=== PATIENT | male | born 1940 | race Caucasian/White ===

== ENCOUNTER 2019-05-16 19:32 | Emergency (ER) | payer OTHER, MEDICARE ==
--- OUTSIDE RECORDS SUMMARY | 2019-05-16 19:35 | XMS REPORT | Clinical Summary ---
:1940 Author Organization [facility] Address [address] [place] [address] Care Team Providers Name Role Phone Lalo Mireles MD Primary Care Provider Allergies No Known Allergies Medications Medication Sig Dispensed Refills Start Date End Date Status apixaban (ELIQUIS) 5 mg Take 5 mg by 0 Active Tab tablet mouth 2 (two) times daily. lansoprazole (PREVACID) Take 30 mg by 0 Active 30 MG capsule mouth daily. famotidine (PEPCID) 20 Take 20 mg by 0 Active MG tablet mouth as needed . Active Problems Not on file Social History Tobacco Use Types Packs/Day Years Used Date Former Smoker Smokeless Tobacco: Never Used Comments: QUIT SMOKING 1976 Alcohol Use Drinks/Week oz/Week Comments Yes OCCASIONALLY Sex Assigned at Date Recorded Not on file Job Start Date Occupation Industry Not on file Not on file Not on file Travel History Travel Start Travel End No recent travel history available. Last Filed Vital Signs Not on file Plan of Treatment Not on file Results Not on fileafter 05/15/2018 Insurance Payer Benefit Plan / Group Subscriber ID Type Phone Address MEDICARE MEDICARE A B xxxxxxxxxx Medicare MCR SUPPLEMENT/INDIVIDUAL AARP/[facility] xxxxxxxxxxx Medig[employer]
--- OUTSIDE RECORDS SUMMARY | 2019-05-16 19:35 | XMS REPORT ---
:1940 [facility] Address [address] [place] [address] Care Team Providers Name Role Phone Unavailable Unavailable Unavailable Payers Payer Name Policy Type Policy Number Effective Date Expiration Date Problems This patient has no known problems. Allergies, Adverse Reactions, Alerts Allergy Allergy Status Severity Reaction(s) Onset Inactive Treating Comments Name Type Date Date Clinician No Known DA Active U 2018-10 Drug -02 Allergies 00:00:0 0 No Known DA Active U 2014-09 Drug -16 Allergies 00:00:0 0 Medications This patient has no known medications.
[2019-05-16] MEDS ORDERED: ACETAMINOPHEN 325 MG TABLET ONE (20:18)
[2019-05-16] MEDS ORDERED: IBUPROFEN 400 MG TAB ONE (20:18)
[2019-05-16] MEDS ORDERED: HYDROCODONE/APAP 7.5/325 MG TAB ONE (20:49)
--- NOTE | 2019-05-16 21:07 | EDPHYS ---
Physician Documentation [facility] Name: Alpesh Alves Age: 78 yrs Sex: Male : 1940 Arrival Date: 05/16/2019 Time: 19:40 Bed 20 Private MD: Lalo Mireles B ED Physician James Wong HPI: 05/16 19:52 This 78 yrs old Male presents to ER via Ambulatory with complaints of Ankle cp Injury. 19:52 The patient presents with pain, that is acute, swelling, tenderness. The complaints cp affect the left ankle. Onset: The symptoms/episode began/occurred 3 day(s) ago. Context: resulted from a mis-step by the patient, [place], The patient can fully bear weight on the affected extremity. the patient is able to ambulate, with moderate difficulty. Associated signs and symptoms: Pertinent positives: left foot pain. 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 - Social history:: Smoking status: Patient/guardian denies using tobacco. - Ebola Screening: : No symptoms or risks identified at this time. ROS: 20:00 Constitutional: Negative for body aches, chills, fever, poor PO intake. cp 20:00 Cardiovascular: Negative for chest pain. cp 20:00 Respiratory: Negative for cough, wheezing. 20:00 MS/extremity: Positive for pain, swelling, tenderness, of the left lateral ankle, Negative for decreased range of motion, paresthesias. 20:00 Skin: Negative for rash. 20:00 All other systems are negative. Exam: 20:08 Constitutional: The patient appears in no acute distress, alert, awake, cp non-diaphoretic, non-toxic, well developed, well nourished. 20:08 Head/Face: Normocephalic, atraumatic. cp 20:08 Musculoskeletal/extremity: Extremities: grossly normal except: noted in the left lateral ankle: pain, swelling, tenderness, There is no evidence of decreased ROM, deformity, ROM: limited active range of motion due to pain, in the left ankle, Perfusion: the extremity is normally perfused throughout, Sensation intact. Achilles tendon intact. No pain palpated at proximal fibula. Noted tenderness at base of left fifth metatarsal. 20:08 Skin: cellulitis, is not appreciated, no rash present. Vital Signs: 19:53 BP 192 / 105; Pulse 98; Resp 18 S; Temp 98.9(O); Pulse Ox 96% on R/A; Weight 112.04 kg bb (R); Height 6 ft. 0 in. (182.88 cm) (R); Pain 10/10; 19:53 Body Mass Index 33.50 (112.04 kg, 182.88 cm) bb Procedures: 21:45 Splinting: Splint applied to left ankle using walking boot. applied by nurse. Examined cp by me, post splint application: neurovascular intact, Patient tolerated well. MDM: 19:40 Patient medically screened. wendy 20:00 Differential diagnosis: fracture, sprain, gout, dislocation. cp 21:00 Test interpretation: by ED physician or midlevel provider: xrays of left ankle negative cp for fracture and xrays of left foot negative for fracture. 21:03 Data reviewed: vital signs, nurses notes, radiologic studies, plain films. 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 Response to treatment: the patient's symptoms have markedly improved after treatment. 05/16 19:51 Order name: XRAY Foot LEFT 3 View 05/16 19:51 Order name: XRAY Ankle LEFT 3 view cp 05/16 20:45 Order name: Walking boot; Complete Time: 21:22 cp Administered Medications: 20:03 Drug: Tylenol 650 mg Route: PO; ao 21:24 Follow up: Response: No adverse reaction ao 20:04 Not Given (Patient Refused): Ibuprofen 800 mg PO once ao 20:55 Drug: Hydrocodone-Acetaminophen (7.5 mg-325 mg) 1 tabs Route: PO; ao 21:24 Follow up: Response: No adverse reaction ao Disposition: 22:00 Chart complete. cp 05/17 08:03 Co-signature as Attending Physician, James Wong MD I agree with the assessment and wendy plan of care. Disposition: 05/16/19 21:06 Discharged to Home. Impression: Pain in left ankle and joints of left foot. - Condition is Stable. - Discharge Instructions: Elastic Bandage and RICE, Ankle Pain. - Prescriptions for Tramadol 50 mg Oral Tablet - take 1 tablet by ORAL route every 8 hours as needed; 20 tablet. - Medication Reconciliation Form, Thank You Letter, Antibiotic Education, Prescription Opioid Use form. - Follow up: Private Physician; When: 2 - 3 days; Reason: Recheck today's complaints. - Problem is new. - Symptoms have improved. Signatures: Dispatcher [employer] EDND James Wong MD MD cha Ballard, Brenda, RN RN bb James Perez PA PA cp Rosalio Guzman, RN RN ao Corrections: (The following items were deleted from the chart) 05/16 21:08 21:03 Test interpretation: by ED physician or midlevel provider: Xrays of right ankle cp negative for fracture and xrays of right foot negative for fracture, cp 21:46 21:06 05/16/2019 21:06 Discharged to Home. Impression: Pain in left ankle and joints of ao left foot. Condition is Stable. Forms are Medication Reconciliation Form, Thank You Letter, Antibiotic Education, Prescription Opioid Use. Follow up: Private Physician; When: 2 - 3 days; Reason: Recheck today's complaints. Problem is new. Symptoms have improved. cp
--- NOTE | 2019-05-16 21:07 | ER ---
Nurse's Notes [facility] Name: Alpesh Alves Age: 78 yrs Sex: Male : 1940 Arrival Date: 05/16/2019 Time: 19:40 Bed 20 Private MD: Lalo Mireles B Diagnosis: Pain in left ankle and joints of left foot Presentation: 05/16 19:49 Presenting complaint: Patient states: he [place] bb and stumbled over some rocks injuring his left ankle pain in ankle is getting worse and it is swollen. Transition of care: patient was not received from another setting of care. Onset of symptoms was May 13, 2019. Risk Assessment: Do you want to hurt yourself or someone else? Patient reports no desire to harm self or others. Initial Sepsis Screen: Does the patient meet any 2 criteria? No. Patient's initial sepsis screen is negative. Does the patient have a suspected source of infection? No. Patient's initial sepsis screen is negative. Care prior to arrival: None. 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 - Social history:: Smoking status: Patient/guardian denies using tobacco. - Ebola Screening: : No symptoms or risks identified at this time. Screenin:44 Abuse screen: Denies threats or abuse. Denies injuries from another. Nutritional ao screening: No deficits noted. Tuberculosis screening: No symptoms or risk factors identified. Fall Risk None identified. Assessment: 19:54 General: Appears in no apparent distress. comfortable, Behavior is calm, cooperative, ao appropriate for age. Pain: Complains of pain in left lateral ankle. Neuro: Level of Consciousness is awake, alert, obeys commands, Oriented to person, place, time, situation, Appropriate for age Moves all extremities. Full function Speech is normal, Facial symmetry appears normal. Cardiovascular: Capillary refill < 3 seconds Patient's skin is warm and dry. Respiratory: Airway is patent Respiratory effort is even, unlabored, Respiratory pattern is regular, symmetrical, Breath sounds are clear bilaterally. GI: Abdomen is round. : No signs and/or symptoms were reported regarding the genitourinary system. EENT: No signs and/or symptoms were reported regarding the EENT system. Derm: Skin is intact, Skin is pink, warm \T\ dry. normal, Skin temperature is warm. Musculoskeletal: Circulation, motion, and sensation intact. Range of motion: intact in all extremities, Swelling absent. 21:45 Reassessment: Dc instructions given to patient. Patient agree with the POC and to ao follow up with PCP. Vital Signs: 19:53 BP 192 / 105; Pulse 98; Resp 18 S; Temp 98.9(O); Pulse Ox 96% on R/A; Weight 112.04 kg bb (R); Height 6 ft. 0 in. (182.88 cm) (R); Pain 10/10; 19:53 Body Mass Index 33.50 (112.04 kg, 182.88 cm) bb ED Course: 19:40 Patient arrived in ED. es 19:40 James Wong MD is Attending Physician. wendy 19:40 James Perez PA is PHCP. cp 19:41 Lalo Mireles MD is Private Physician. es 19:50 Triage completed. bb 19:53 Rosalio Guzman, RN is Primary Nurse. ao 19:53 Arm band placed on Patient placed in an exam room, on a stretcher, on pulse oximetry. bb Family accompanied patient. 21:11 XRAY Foot LEFT 3 View In Process Unspecified. EDMS 21:11 XRAY Ankle LEFT 3 view In Process Unspecified. EDMS 21:44 No provider procedures requiring assistance completed. Patient did not have IV access ao during this emergency room visit. 21:45 Patient has correct armband on for positive identification. Pulse ox on. NIBP on. ao Administered Medications: 20:03 Drug: Tylenol 650 mg Route: PO; ao 21:24 Follow up: Response: No adverse reaction ao 20:04 Not Given (Patient Refused): Ibuprofen 800 mg PO once ao 20:55 Drug: Hydrocodone-Acetaminophen (7.5 mg-325 mg) 1 tabs Route: PO; ao 21:24 Follow up: Response: No adverse reaction ao Outcome: 21:06 Discharge ordered by . [place] 21:45 Discharged to home ambulatory. ao 21:45 Condition: stable 21:45 Discharge instructions given to patient, Instructed on discharge instructions, follow up and referral plans. Demonstrated understanding of instructions, follow-up care, medications, Prescriptions given X 1. 21:46 Patient left the ED. ao Signatures: Dispatcher [employer] James Lopez MD MD cha Salyer, Edna es Ballard, Brenda, RN RN James Garcia PA PA cp Ortiz, Alex, RN RN ao
--- NOTE | 2019-05-16 22:01 | RAD REPORT ---
EXAM DESCRIPTION: RAD - Ankle Left 3 View - 05/16/2019 9:08 pm CLINICAL HISTORY: PAIN COMPARISON: Ankle Left 3 View dated 12/09/2014 FINDINGS: Moderate soft tissue swelling is seen about the ankle. Moderate osteoarthritic changes inv olve the ankle joint. Small calcaneal spurs are evident. A definitive acute fracture is not seen, how ever, if pain persists follow-up MR imaging may be of value.
--- NOTE | 2019-05-16 22:02 | RAD REPORT ---
EXAM DESCRIPTION: RAD - Foot Left 3 View - 05/16/2019 9:08 pm CLINICAL HISTORY: PAIN COMPARISON: No comparisons FINDINGS: Prominent osteoarthritic changes involve the first metacarpal phalangeal joint. No acute f racture or dislocation seen. Small calcaneal spur is evident.
[2019-05-16 22:25] VITALS: BP 192/105; TEMP 98.9; O2SAT 96
== END 2019-05-16 21:46 | disposition home or self-care (01) ==
LOC: ER 19:32
DX: M25.572 Pain in left ankle and joints of left foot (principal); I10 Essential (primary) hypertension; I48.91 Unspecified atrial fibrillation; Z79.01 Long term (current) use of anticoagulants; Z85.51 Personal history of malignant neoplasm of bladder
CPT/HCPCS: 99284

== ENCOUNTER 2020-06-18 04:03 | Inpatient (IN) | payer OTHER, MEDICARE ==
--- OUTSIDE RECORDS SUMMARY | 2020-06-18 04:06 | XMS REPORT | Clinical Summary ---
:1940 Author Organization [facility] Address [address] [place] [address] Care Team Providers Name Role Phone Chuy Mireles MD Primary Care Provider Allergies No [...] Not on file Results Not on fileafter 06/18/2019 Insurance Payer Benefit Plan / Group Subscriber ID Type Phone A ddress MEDICARE MEDICARE A B xxxxxxxxxx Medicare MCR SUPPLEMENT/INDIVIDUAL AARP/[facility] xxxxxxxxxxx [employer]
--- OUTSIDE RECORDS SUMMARY | 2020-06-18 04:06 | XMS REPORT | Continuity of Care Document ---
:1940 Author Organization [facility] Address [address] [place] [address] Care Team Providers Name Role Phone Chuy Mireles MD Primary Care Physician Bebeto Webster MD Attending Clinician Only, Test Attending Clinician Unavailable Bebeto Webster MD Admitting Clinician Payers Payer Name Policy Type Policy Number Effective Date Expiration Date S ource Problems This patient has no known problems. Allergies, Adverse Reactions, Alerts Allergy Allergy Status Severity Reaction(s) Onset Inactive Treating Comm ents Source Name Type Date Date Clinician No Known DA Active U [facility] [place] [facility] No Known DA Active U 2013-10 [facility] [place] [facility] Social History Social Habit Start Date Stop Date Quantity Comments Source Sex Assigned At [facility] Tobacco Comment 2016-02-15 2016-02-15 QUIT SMOKING [address] [facility] Alcohol Comment 2016-02-15 2016-02-[address] [facility] Smoking Status Start Date Stop Date Source Former smoker 2016-02-18 00:00:00 2016-02-18 00:00:[address] [facility] Medications Ordered Filled Start Stop Current Ordering Indication Dosage Frequency Signature Comments Components Source Medication Medication Date Date Medication? Clinician (SIG) Name Name famotidine Yes 20mg Take [address] (PEPCID) 20 4-29 by mouth [facility] - MG tablet 10:00: as needed Med ical 27 . Center apixaban Yes 5mg Q.5D Take [address] [facility] [address] (ELIQUIS) 5 4-29 by mouth 2 Gay kes - mg Tab 09:59: (two) Medical tablet 44 times Center daily. lansoprazol Yes 30mg QD Take [address] [facility] 4-29 by mouth [facility] - (PREVACID) 09:59: daily. Medic al 30 MG 44 Center capsule Procedures This patient has no known procedures. Encounters Start End Encounter Admission Attending Care Care Encounter Source Date/Time Date/Time Type Type Clinicians Facility Department ID 2020-04-12 2020-04-12 [facility] [id number] 07:56:00 11:17:00 Encounter [facility] [id number] [facility] [id number] [place] 071 2020-04-11 2020-04-11 Laboratory Only, [facility] [id number] 12:02:55 12:17:55 Only Test [place] [id number] [place] [id number] [place] [id number] Results This patient has no known results.
[2020-06-18] MEDS ORDERED: MORPHINE 2 MG/ML SYR ONE ×3 (04:52→09:25)
[2020-06-18] MEDS ORDERED: FAMOTIDINE 20 MG/2 ML VIAL IV ONE (04:52)
[2020-06-18] MEDS ORDERED: ONDANSETRON 4 MG/2 ML VIAL ONE ×2 (04:52→09:25)
[2020-06-18] MEDS ORDERED: NA CHLORIDE 0.9% 0 ML ONE (04:53)
[2020-06-18 05:24] LABS: Basophils % 0.2 % (0-1.3); Hematocrit 39.1 % (39.6-49.0); Lymphocytes % 10.1 % (15.3-44.8); MPV 8.9 fL (7.6-11.3); RBC Red Blood Cell Count 4.02 M/uL (4.33-5.43)
[2020-06-18 05:51] LABS: Bilirubin Direct 0.2 mg/dL (0-0.2); Bilirubin Total 0.6 mg/dL (0.2-1.0); Potassium 3.9 mmol/L (3.5-5.1); Protein, Total 7.9 g/dL (6.4-8.2)
[2020-06-18 06:19] LABS: Urine Blood 2+ (NEG); Urine Glucose NEGATIVE (NEG); Urine Protein 2+ (NEG); Urine Specific Gravity 1.025 (1.005-1.030); Urine pH 5.5 (5.0-7.0)
--- NOTE | 2020-06-18 08:36 | RAD REPORT ---
EXAM DESCRIPTION: CT - Abdomen Pelvis Wo Contrast - 06/18/2020 7:50 am CLINICAL HISTORY: Abdominal pain COMPARISON: 2012 TECHNIQUE: Computed axial tomography of the abdomen and pelvis was obtained. IV was not requested. O ral contrast was given. Coronal reconstructions performed. All CT scans are performed using dose optimization technique as appropriate and may include automated exposure control or mA/KV adjustment according to patient size. FINDINGS: The evaluation of solid organs and vessels is limited secondary to the lack of contrast a dministration. Stomach is distended. Mild to moderate dilatation of jejunum and proximal ileum. The remainder of the ileum is decompressed. Mild edema within the mesenteric. No free air. Postsurgical changes involve the pelvis, ureters and bladder. Small hepatic lesions nonspecific but probably cysts. Bold splenic granulomata are present. The pancreas, adrenals and kidneys appear grossly normal. Multiple small ventral hernias contain fat The appendix is normal. There is no evidence of diverticulitis. IMPRESSION: Mild to moderate small bowel obstruction
--- NOTE | 2020-06-18 09:02 | EDPHYS ---
Physician Documentation [facility] Name: Alpesh Alves Age: 79 yrs Sex: Male : 1940 Arrival Date: 06/18/2020 Time: 04:04 Bed 20 Private MD: ED Physician Brian Singh HPI: 06/18 04:45 This 79 yrs old Male presents to ER via Ambulatory with complaints of mh7 Abdominal Pain, Constipation. 04:45 The patient presents with abdominal pain in the upper abdomen. Onset: The mh7 symptoms/episode began/occurred yesterday. The symptoms do not radiate. Associated signs and symptoms: Pertinent positives: anorexia, blood in stools, chest pain, diarrhea, dysuria, fever, headache, hematuria, palpitations, shortness of breath, testicular pain, vomiting, vomiting blood, Pertinent negatives: constipation, nausea. The symptoms are described as crampy, intermittent, waxing/waning. Modifying factors: The symptoms are alleviated by nothing, the symptoms are aggravated by nothing. Severity of pain: At its worst the pain was moderate last night, in the emergency department the pain has improved moderately. 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 - Social history:: Smoking status: Patient denies any tobacco usage or history of. ROS: 04:45 Constitutional: Negative for fever, chills, and weight loss, Eyes: Negative for injury, mh7 pain, redness, and discharge, ENT: Negative for injury, pain, and discharge, Neck: Negative for injury, pain, and swelling, Cardiovascular: Negative for chest pain, palpitations, and edema, Respiratory: Negative for shortness of breath, cough, wheezing, and pleuritic chest pain, Back: Negative for injury and pain, : Negative for injury, bleeding, discharge, and swelling, MS/Extremity: Negative for injury and deformity, Skin: Negative for injury, rash, and discoloration, Neuro: Negative for headache, weakness, numbness, tingling, and seizure, Psych: Negative for depression, anxiety, suicide ideation, homicidal ideation, and hallucinations, Allergy/Immunology: Negative for hives, rash, and allergies, Endocrine: Negative for neck swelling, polydipsia, polyuria, polyphagia, and marked weight changes, Hematologic/Lymphatic: Negative for swollen nodes, abnormal bleeding, and unusual bruising. Exam: 04:45 Constitutional: This is a well developed, well nourished patient who is awake, alert, mh7 and in no acute distress. Head/Face: Normocephalic, atraumatic. Eyes: Pupils equal round and reactive to light, extra-ocular motions intact. Lids and lashes normal. Conjunctiva and sclera are non-icteric and not injected. Cornea within normal limits. Periorbital areas with no swelling, redness, or edema. Neck: Trachea midline, no thyromegaly or masses palpated, and no cervical lymphadenopathy. Supple, full range of motion without nuchal rigidity, or vertebral point tenderness. No Meningismus. Chest/axilla: Normal chest wall appearance and motion. Nontender with no deformity. No lesions are appreciated. Cardiovascular: Regular rate and rhythm with a normal S1 and S2. No gallops, murmurs, or rubs. Normal PMI, no JVD. No pulse deficits. Respiratory: Lungs have equal breath sounds bilaterally, clear to auscultation and percussion. No rales, rhonchi or wheezes noted. No increased work of breathing, no retractions or nasal flaring. 04:45 Back: No spinal tenderness. No costovertebral tenderness. Full range of motion. Skin: Warm, dry with normal turgor. Normal color with no rashes, no lesions, and no evidence of cellulitis. MS/ Extremity: Pulses equal, no cyanosis. Neurovascular intact. Full, normal range of motion. Neuro: Awake and alert, GCS 15, oriented to person, place, time, and situation. Cranial nerves II-XII grossly intact. Motor strength 5/5 in all extremities. Sensory grossly intact. Cerebellar exam normal. Normal gait. Psych: Awake, alert, with orientation to person, place and time. Behavior, mood, and affect are within normal limits. 04:45 Constitutional: The patient appears in no acute distress, alert, awake. 04:45 Abdomen/GI: Inspection: abdomen appears normal, obese Bowel sounds: normal, in all quadrants, Palpation: moderate abdominal tenderness, in the epigastric area, Rectal exam: the exam is deferred, because of patient request, Indicators: McBurney's point is not tender, Mix's sign is negative, Rovsing's sign is negative, Obturator sign is negative, Psoas sign is negative, Liver: no appreciated palpable abnormalities, Hernia: noted in the paraumbilical area. Vital Signs: 04:14 BP 164 / 100; Pulse 98; Resp 18; Temp 97.6; Pulse Ox 97% ; Weight 104.33 kg; Height 6 rv ft. (182.88 cm); Pain 10/10; 05:00 BP 145 / 85; Pulse 96; Resp 17; Pulse Ox 97% on R/A; rv 06:00 BP 167 / 97; Pulse 95; Resp 18; Pulse Ox 97% on R/A; rv 06:30 BP 177 / 92; Pulse 83; Resp 18; Pulse Ox 98% on R/A; rv 07:34 BP 116 / 98; Pulse 88; Resp 17; Pulse Ox 98% on R/A; tw2 08:43 BP 115 / 102; Pulse 78; Resp 17; Pulse Ox 96% ; tw2 09:30 BP 142 / 82; Pulse 72; Resp 17; Pulse Ox 95% on R/A; tw2 10:47 BP 143 / 87; Pulse 102; Resp 22; Pulse Ox 97% on R/A; tw2 11:55 BP 124 / 80; Pulse 115; Resp 18; Pulse Ox 95% on R/A; tw2 12:53 BP 130 / 86; Pulse 100; Resp 19; Pulse Ox 96% on R/A; tw2 04:14 Body Mass Index 31.19 (104.33 kg, 182.88 cm) rv MDM: 04:27 Patient medically screened. [facility] 07:05 Transition of care: After a detail discussion of the patient's case, care is [facility] transferred to Brian Singh MD. 07:30 Differential diagnosis: appendicitis, bowel obstruction, diverticulitis, non-specific rn abd pain, pancreatitis, Peptic Ulcer Disease. Data reviewed: vital signs, nurses notes, lab test result(s). ED course: Pt reports pain improved, signed out to me by Dr. Valdez pending CT abdomen, most concerning is possible bowel obstruction given previous surgeries and constipation. . 08:59 Counseling: I had a detailed discussion with the patient and/or guardian regarding: the rn historical points, exam findings, and any diagnostic results supporting the discharge/admit diagnosis, lab results, radiology results, the need for further work-up and treatment in the hospital. Admission orders: after a detailed discussion of the patient's condition and case, the admit orders are written by me. ED course: Pt with SBO, will admit to Dr. Singh, and consult Dr. Barnhart. NG tube being placed now. . 06/18 04:29 Order name: Basic Metabolic Panel [facility] 06/18 04:29 Order name: CBC with Diff; Complete Time: 06:04 [facility] 06/18 04:29 Order name: Hepatic Function [facility] 06/18 04:29 Order name: Lipase [facility] 06/18 04:29 Order name: Basic Metabolic Panel; Complete Time: 06:04 [facility] 06/18 04:29 Order name: Liver (Hepatic) Function; Complete Time: 06:04 [facility] 06/18 04:29 Order name: Lipase; Complete Time: 06:04 [facility] 06/18 06:00 Order name: Urine Dipstick--Ancillary (enter results); Complete Time: 07:14 ar5 06/18 07:26 Order name: Abdomen ; Complete Time: 08:50 [facility] 06/18 09:33 Order name: Abdomen 1 View (KUB) XRAY; Complete Time: 11:36 snw 06/18 04:29 Order name: IV Saline Lock; Complete Time: 04:47 [facility] 06/18 04:29 Order name: Labs collected and sent; Complete Time: 04:47 [facility] 06/18 04:29 Order name: Urine Dipstick-Ancillary (obtain specimen); Complete Time: 12:13 [facility] 06/18 04:29 Order name: EKG - Nurse/Tech; Complete Time: 04:46 [facility] 06/18 08:50 Order name: NG Tube; Complete Time: 09:32 rn 06/18 11:05 Order name: CONS Physician Consult EDMS Administered Medications: 04:47 Drug: morphine 2 mg {Note: rass 0.} Route: IVP; Site: right antecubital; rv 06:44 Follow up: Response: No adverse reaction; Marked relief of symptoms; Pain is decreased; rv RASS: Alert and Calm (0) 04:47 Drug: Zofran (Ondansetron) 4 mg Route: IVP; Site: right antecubital; rv 06:45 Follow up: Response: No adverse reaction rv 04:47 Drug: Pepcid 20 mg Route: IVP; Site: right antecubital; rv 06:45 Follow up: Response: No adverse reaction rv 06:00 Drug: NS 0.9% 500 ml Route: IV; Rate: 1000 ml; Site: right antecubital; rv 06:45 Follow up: IV Status: Completed infusion; IV Intake: 1000ml rv 07:04 Drug: morphine 2 mg Route: IVP; Site: right antecubital; rv 07:55 Follow up: Response: No adverse reaction; Pain is decreased; RASS: Alert and Calm (0) tw2 09:25 Drug: Zosyn 3.375 grams Route: IVPB; Infused Over: 60 mins; Site: right antecubital; tw2 10:30 Follow up: Response: No adverse reaction; IV Status: Completed infusion tw2 09:25 Drug: Zofran (Ondansetron) 4 mg Route: IVP; Site: right antecubital; tw2 10:46 Follow up: Response: No adverse reaction; Nausea is decreased tw2 09:27 Drug: morphine 2 mg Route: IVP; Site: right antecubital; tw2 10:46 Follow up: Response: No adverse reaction; Pain is unchanged, physician notified; RASS: tw2 Drowsy (-1) 10:19 Drug: vancoMYCIN 1 grams Route: IVPB; Infused Over: 2 hrs; Site: right hand; tw2 12:20 Follow up: Response: No adverse reaction; IV Status: Completed infusion tw2 10:24 Drug: LevaQUIN 750 mg Volume: 150 ml; Route: IVPB; Infused Over: 90 mins; Site: right tw2 hand; 12:00 Follow up: Response: No adverse reaction; IV Status: Completed infusion tw2 Disposition: 06/18/20 09:02 Hospitalization ordered by Yfn Singh for Inpatient Admission. Preliminary diagnosis is Small bowel obstruction. - Bed requested for Telemetry/MedSurg (Inpatient). - Status is Inpatient Admission. tw2 - Condition is Stable. - Problem is new. - Symptoms have improved. Signatures: Dispatcher [employer] EDMS Sarina Mcghee bd Marcia Peng, JOE RN iw Brian Singh MD MD rn Wise, Tara, RN RN tw2 Jose M Moralez RN RN Darinel Valdez MD MD 7 Corrections: (The following items were deleted from the chart) 07:26 06:06 Abdomen Pelvis W Con+CT.RAD.BRZ ordered. EDHI EDMS 11:39 09:02 Hospitalization Ordered by Yfn Singh MD for Inpatient Admission. Preliminary iw diagnosis is Small bowel obstruction. Bed requested for Telemetry/MedSurg (Inpatient). Status is Inpatient Admission. Condition is Stable. Problem is new. Symptoms have improved. rn 13:16 11:39 06/18/2020 09:02 Hospitalization Ordered by Yfn Singh MD for Inpatient bd Admission. Preliminary diagnosis is Small bowel obstruction. Bed requested for [facility] ER HOLD. Status is Inpatient Admission. Condition is Stable. Problem is new. Symptoms have improved. iw 14:18 13:16 06/18/2020 09:02 Hospitalization Ordered by Yfn Singh MD for Inpatient tw2 Admission. Preliminary diagnosis is Small bowel obstruction. Bed requested for Telemetry/MedSurg (Inpatient). Status is Inpatient Admission. Condition is Stable. Problem is new. Symptoms have improved. bd
--- NOTE | 2020-06-18 09:02 | ER ---
Nurse's Notes [facility] Name: Alpesh Alves Age: 79 yrs Sex: Male : 1940 Arrival Date: 06/18/2020 Time: 04:04 Bed 20 Private MD: Diagnosis: Small bowel obstruction Presentation: 06/18 04:14 Chief complaint: Patient states: constipated since yesterday. complaining of abdominal rv pain described as cramping, 10/10 around the umbilical region, with nausea. denies fever. Coronavirus screen: At this time, the client does not indicate any symptoms associated with coronavirus-19. Ebola Screen: No symptoms or risks identified at this time. Initial Sepsis Screen: Does the patient meet any 2 criteria? No. Patient's initial sepsis screen is negative. Does the patient have a suspected source of infection? No. Patient's initial sepsis screen is negative. Risk Assessment: Do you want to hurt yourself or someone else? Patient reports no desire to harm self or others. Onset of symptoms was June 17, 2020 at 08:00. 04:14 Method Of Arrival: Ambulatory rv 04:14 Acuity: DEE 3 rv Triage Assessment: 04:18 General: Appears uncomfortable, Behavior is calm, cooperative. Pain: Complains of pain rv in abdomen Pain does not radiate. Pain currently is 10 out of 10 on a pain scale. Quality of pain is described as crampy, Pain began 1 day ago. Is intermittent. EENT: No signs and/or symptoms were reported regarding the EENT system. Neuro: Level of Consciousness is awake, alert, obeys commands, Oriented to person, place, time, situation. Cardiovascular: Patient's skin is warm and dry. Respiratory: Airway is patent. GI: Abdomen is round non-distended, mass protruding above the umbilical region. Bowel sounds present X 4 quads. Derm: Skin is intact. 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 - Social history:: Smoking status: Patient denies any tobacco usage or history of. Screenin:20 Abuse screen: Denies threats or abuse. Denies injuries from another. Nutritional rv screening: No deficits noted. Tuberculosis screening: No symptoms or risk factors identified. Fall Risk None identified. Assessment: 04:20 GI: Abdomen is tender to palpation in umbilical area. rv 06:43 Reassessment: PATIENT PAIN DECREASED AFTER DOSE OF MORPHINE. AOX4. RESPIRATORY STATUS rv STABLE. AWAITING CT SCAN. ORAL CONTRAST DONE AT 0620. CT SCAN AWARE. 07:23 Reassessment: Dr. Singh at bedside at this time. tw2 07:34 Reassessment: No changes from previously documented assessment. Patient and/or family tw2 updated on plan of care and expected duration. Pain level reassessed. Patient is alert, oriented x 3, equal unlabored respirations, skin warm/dry/pink. 08:44 Reassessment: No changes from previously documented assessment. Patient and/or family tw2 updated on plan of care and expected duration. Pain level reassessed. Patient is alert, oriented x 3, equal unlabored respirations, skin warm/dry/pink. 09:30 Reassessment: No changes from previously documented assessment. Patient and/or family tw2 updated on plan of care and expected duration. Pain level reassessed. Patient is alert, oriented x 3, equal unlabored respirations, skin warm/dry/pink. 10:47 Reassessment: No changes from previously documented assessment. Patient and/or family tw2 updated on plan of care and expected duration. Pain level reassessed. Patient is alert, oriented x 3, equal unlabored respirations, skin warm/dry/pink. pt c/o pain, will contact hospitalist for further orders. Patient states symptoms have not improved. 10:51 Reassessment: received permission from pt to give update and access code to Sandra silvia (significant other). 11:50 Reassessment: No changes from previously documented assessment. Patient and/or family tw2 updated on plan of care and expected duration. Pain level reassessed. Patient is alert, oriented x 3, equal unlabored respirations, skin warm/dry/pink. 12:54 Reassessment: No changes from previously documented assessment. Patient and/or family tw2 updated on plan of care and expected duration. Pain level reassessed. Patient is alert, oriented x 3, equal unlabored respirations, skin warm/dry/pink. Vital Signs: 04:14 BP 164 / 100; Pulse 98; Resp 18; Temp 97.6; Pulse Ox 97% ; Weight 104.33 kg; Height 6 rv ft. (182.88 cm); Pain 10/10; 05:00 BP 145 / 85; Pulse 96; Resp 17; Pulse Ox 97% on R/A; rv 06:00 BP 167 / 97; Pulse 95; Resp 18; Pulse Ox 97% on R/A; rv 06:30 BP 177 / 92; Pulse 83; Resp 18; Pulse Ox 98% on R/A; rv 07:34 BP 116 / 98; Pulse 88; Resp 17; Pulse Ox 98% on R/A; tw2 08:43 BP 115 / 102; Pulse 78; Resp 17; Pulse Ox 96% ; tw2 09:30 BP 142 / 82; Pulse 72; Resp 17; Pulse Ox 95% on R/A; tw2 10:47 BP 143 / 87; Pulse 102; Resp 22; Pulse Ox 97% on R/A; tw2 11:55 BP 124 / 80; Pulse 115; Resp 18; Pulse Ox 95% on R/A; tw2 12:53 BP 130 / 86; Pulse 100; Resp 19; Pulse Ox 96% on R/A; tw2 04:14 Body Mass Index 31.19 (104.33 kg, 182.88 cm) rv ED Course: 04:04 Patient arrived in ED. cl3 04:06 Jose M Moralez, JOE is Primary Nurse. rv 04:09 Darinel Valdez MD is Attending Physician. mh7 04:16 Triage completed. rv 04:20 Arm band placed on left wrist. Patient placed in the treatment room, on a stretcher, rv Patient notified of wait time. 04:20 Patient has correct armband on for positive identification. Pulse ox on. NIBP on. rv 04:48 Initial lab(s) drawn, by me, sent to lab. Inserted saline lock: 20 gauge in right rv antecubital area, using aseptic technique. Blood collected. 05:12 Lab(s) recollected, by me, sent to lab. rv 07:09 Primary Nurse role handed off by Jose M Moralez, JOE tw2 07:09 Mandi Wang, JOE is Primary Nurse. tw2 07:14 Attending Physician role handed off by Darinel Valdez MD rn 07:14 Brian Singh MD is Attending Physician. rn 07:51 Abdomen In Process Unspecified. EDMS 09:01 Yfn Singh MD is Hospitalizing Provider. rn 09:33 NGT: inserted 16 Fr. via left nare. verified placement of air over stomach, verified tw2 return of gastric contents, to intermittent suction. Returned gastric contents. Patient tolerated well. 10:18 Inserted saline lock: 22 gauge in right hand, using aseptic technique. tw2 11:14 Abdomen 1 View (KUB) XRAY In Process Unspecified. EDMS 12:54 No provider procedures requiring assistance completed. Patient admitted, IV remains in tw2 place. Administered Medications: 04:47 Drug: morphine 2 mg {Note: rass 0.} Route: IVP; Site: right antecubital; rv 06:44 Follow up: Response: No adverse reaction; Marked relief of symptoms; Pain is decreased; rv RASS: Alert and Calm (0) 04:47 Drug: Zofran (Ondansetron) 4 mg Route: IVP; Site: right antecubital; rv 06:45 Follow up: Response: No adverse reaction rv 04:47 Drug: Pepcid 20 mg Route: IVP; Site: right antecubital; rv 06:45 Follow up: Response: No adverse reaction rv 06:00 Drug: NS 0.9% 500 ml Route: IV; Rate: 1000 ml; Site: right antecubital; rv 06:45 Follow up: IV Status: Completed infusion; IV Intake: 1000ml rv 07:04 Drug: morphine 2 mg Route: IVP; Site: right antecubital; rv 07:55 Follow up: Response: No adverse reaction; Pain is decreased; RASS: Alert and Calm (0) tw2 09:25 Drug: Zosyn 3.375 grams Route: IVPB; Infused Over: 60 mins; Site: right antecubital; tw2 10:30 Follow up: Response: No adverse reaction; IV Status: Completed infusion tw2 09:25 Drug: Zofran (Ondansetron) 4 mg Route: IVP; Site: right antecubital; tw2 10:46 Follow up: Response: No adverse reaction; Nausea is decreased tw2 09:27 Drug: morphine 2 mg Route: IVP; Site: right antecubital; tw2 10:46 Follow up: Response: No adverse reaction; Pain is unchanged, physician notified; RASS: tw2 Drowsy (-1) 10:19 Drug: vancoMYCIN 1 grams Route: IVPB; Infused Over: 2 hrs; Site: right hand; tw2 12:20 Follow up: Response: No adverse reaction; IV Status: Completed infusion tw2 10:24 Drug: LevaQUIN 750 mg Volume: 150 ml; Route: IVPB; Infused Over: 90 mins; Site: right tw2 hand; 12:00 Follow up: Response: No adverse reaction; IV Status: Completed infusion tw2 Intake: 06:45 IV: 1000ml; Total: 1000ml. rv Output: 10:19 Gastric: 600ml (NGT); Total: 600ml. tw2 11:35 Urine: 350ml (Voided); Total: 950ml. tw2 Outcome: 09:02 Decision to Hospitalize by Provider. rn 12:54 Admitted to ER Hold. Please see [facility] for further documentation. tw2 12:54 Condition: stable 12:54 Instructed on the need for admit. 14:18 Patient left the ED. tw2 Signatures: Dispatcher [employer] Rebekah Zuniga RN RN dm5 Brian Singh MD MD rn Wise, Tara, RN RN tw2 Jose M Moralez RN RN rv Lewis, Charde 3 Darinel Valdez MD MD 7
[2020-06-18] MEDS ORDERED: PIPER/TAZO/NS 3.375gm 3.375 GM/100 ML BAG ONE (09:25)
[2020-06-18] MEDS ORDERED: VANCOMYCIN/NS 1 gm 1 GM/250 ML BAG IV ONE (09:45)
[2020-06-18] MEDS ORDERED: Levofloxacin 750mg IV 750 MG/150 ML BAG IV ONE (09:49)
--- NOTE | 2020-06-18 11:15 | P.HP ---
Certification for Inpatient Patient admitted to: Inpatient With expected LOS: >2 Midnights Practitioner: I am a practitioner with admitting privileges, knowledge of patient current condition, hospital course, and medical plan of care. Services: Services provided to patient in accordance with Admission requirements found in Title 42 Section 412.3 of the Code of Federal Regulations Patient History Date of Service: 06/18/20 Primary Care Provider: Out of town Reason for admission: small bowel obstruction History of Present Illness: 79yo male, PMH: Afib, HTN, GERD, Bladder CA s/p resection / sneha-bladder who presented to ED with significant abdominal pain and nausea that began at 9 pm yesterday. He reports this is the first episode of pain like this. He reports he typically has a BM daily, but did not have one that day. The pain persisted and was severe enough that he presented to ED. Pain is most severe just left of umbilicus, does not radiate. Moving and abdominal pressure worsens the pain. Nothing has alleviated the pain at home. A CT abdomen was done in ED: consistent with mild-mod SBO, no perforation. Labs notable for Cr: 1.43, otherwise unremarkable. Vitals WNL & stable. General surgery was consulted in ED. NGT was placed, and patient will be admitted for further management. Allergies No Known Allergies Allergy (Verified 05/25/12 12:39) Home Medications: Acetaminophen [Tylenol Extra Strength] 1 tab PO Q6H PRN 06/18/20 Amlodipine [Norvasc*] 1 tab PO DAILY 06/18/20 Apixaban [Eliquis *] 1 tab PO BID 06/18/20 Candesartan Cilexetil 1 tab PO DAILY 06/18/20 Metoprolol Tartrate 1 tab PO BID 06/18/20 Pantoprazole [Protonix Tab*] 1 tab PO DAILY 06/18/20 - Past Medical/Surgical History Diabetic: No -: Afib -: HTN -: GERD -: h/o bladder cancer -: sneha-bladder -: hernia repair - Family History brother -: Other (see notes) - Social History Smoking Status: Former smoker (>40yrs ago) Alcohol use: Yes CD- Drugs: No Caffeine use: Yes Review of Systems General: Unremarkable Eyes: Unremarkable ENT: Unremarkable Respiratory: Unremarkable Cardiovascular: Unremarkable Gastrointestinal: Nausea, Vomiting, Abdominal Pain, Distention, As per HPI Genitourinary: Unremarkable Musculoskeletal: Unremarkable Integumentary: Unremarkable Neurological: Unremarkable Physical Examination - Physical Exam General: Alert, In no apparent distress, Oriented x3 HEENT: Atraumatic, PERRLA, Other (NGT in place to LIWS), EOMI, Sclerae nonicteric Respiratory: Clear to auscultation bilaterally, Normal air movement Cardiovascular: Normal S1 S2, Irregular heart rate/rhythm Gastrointestinal: Distended (mildly), Tenderness (most on left of umbilicus, mild suprapubic/LLQ) Musculoskeletal: No tenderness Integumentary: No rashes Neurological: Normal gait, Normal speech, Normal strength at 5/5 x4 extr, Normal tone, Normal affect - Studies Laboratory Data (last 24 hrs) 06/18/20 05:10: WBC 9.4 D, Hgb 12.9 L, Hct 39.1 L, Plt Count 184 06/18/20 05:10: Sodium 142, Potassium 3.9, BUN 24 H, Creatinine 1.47 H, Glucose 130 H, Total Bilirubin 0.6, AST 22, ALT 35, Alkaline Phosphatase 76, Lipase 233 Assessment and Plan - Plan SBO Atrial Fibrillation GERD HTN SBO -seen on CT -NPO, IVF -NGT to LIWS placed in ED, pt feeling some relief shortly after -General Surgery (Dr. Barnhart) consulted -serial abdominal exams, monitor closely -received antibiotic prophylaxis in ED, does not appear septic, vitals ok, labs ok Afib -holding home meds - pt NPO, can give lopressor -last took Eliquis yesterday evening. -hold Eliquis, start Lovenox 1mg/kg GERD - protonix IV daily while NPO HTN - hold home ARB, amlodipine until taking PO - Advance Directives Does patient have a Living Will: Yes Does patient have a Durable POA for Healthcare: Yes Time Spent Managing Pts Care (In Minutes): 45
--- NOTE | 2020-06-18 11:34 | RAD REPORT ---
EXAM DESCRIPTION: RAD - Abdomen 1 View (KUB) - 06/18/2020 11:13 am CLINICAL HISTORY: Device placement nasogastric tube placement FINDINGS: The tip of a Dobhoff tube lies within the dist a nasogastric tube lies 13 centimeters int o the gastric fundus
[2020-06-18] MEDS: NA CHLORIDE 0.9% 1,000 ML IV SCH ×3 (12:57→21:07)
[2020-06-18] MEDS ORDERED: ONDANSETRON 4 MG/2 ML VIAL IV PRN (12:57)
[2020-06-18] MEDS ORDERED: MORPHINE 2 MG/ML SYR IV PRN (13:02)
[2020-06-18 13:24] VITALS: BMI 4491.3
[2020-06-18] MEDS ORDERED: KCL 20 MEQ/100 mL IVPB 20 MEQ/100 ML BAG IV SCH (15:00)
[2020-06-18] MEDS ORDERED: METOPROLOL TARTRATE 5 MG/5 ML INJ IV STA (16:26)
--- NOTE | 2020-06-18 16:28 | CON ---
Date of Consultation: 06/18/2020 Reason: Small bowel obstruction. History Of Present Illness: The patient is an 79-year-old gentleman with multiple medical problems, presents with diffuse abdominal crampy pain associated with nausea and dry heaving. He came to the e mergency room. Workup revealed a small bowel obstruction. Last bowel movement and passing gas were yesterday. He never had symptoms like this before. He has had several abdominal surgeries including bladder reconstruction about 12 years ago and hernia repair as well. No sore throat, runny nose, co ugh, headaches, or dizziness. No chest pain. no fever or chills. Review of Systems: Otherwise unremarkable. Past Medical History: Significant for AFib, hypertension, GERD, bladder cancer. Past Surgical History: Neobladder, hernia repair. Allergies: NONE. Social History: The patient does not smoke. Quit more than 40 years ago and drinks occasionally. Family History: Noncontributory. Physical Examination: Vital Signs: Stable. He is afebrile. General: He is awake, alert, and oriented x3. Head and neck: Cranial nerves 2 through 12 are grossly within normal limits. No neck masses. No JV D. Throat clear. Neck is supple. Chest: Clear. Heart: S1 and S2. Abdomen: Soft, diffuse minimal tenderness. No rebound, rigidity, or guarding. There is a ventral h ernia present, but it does not appear to be bowel and is easily reducible. Extremities: Adequately perfused. Nontender. Neuro: Nonfocal. CT of the abdomen and pelvis shows [id number] dilatation of the jejunum and proximal ileum. Re mainder of the ileum is decompressed. The stomach is distended. Mild edema within the mesenteric. Multiple small ventral hernias containing fat. The patient had an abdominal x-ray which shows NG tub e into the gastric fundus. Laboratory Data: Shows white count of 9.4 with a left shift. Chemistry reviewed. BUN is 24, creati nine is 1.47. Assessment: Partial small bowel obstruction versus mesenteric gastroenteritis. Recommendation: N.p.o., NG tube, IV fluids. Empiric antibiotics. Serial abdominal exam. Repeat e x-ray tomorrow. We will hold his blood thinners and put him on Lovenox in the time being should he need surgical intervention. No need for any acute surgical intervention at this time. We will foll ow this patient closely. /MODL Voice ID: [id number] Report ID: [id number]
[2020-06-18] MEDS: ENOXAPARIN 100 MG/ML SYR SQ SCH (16:48)
[2020-06-18 17:00] LABS: Urine Appearance TURBID; Urine Bilirubin NEGATIVE (NEG); Urine Blood 2+ (NEG); Urine Color YELLOW; Urine Glucose NEGATIVE (NEG); Urine Protein 2+ (NEG); Urine Specific Gravity 1.015 (1.005-1.030); Urine Urobilinogen 0.2 mg/dL (0.2-1.0); Urine pH 5.5 (5.0-7.0)
[2020-06-18 17:06] LABS: Urine Microscopic Reflex ORDER UMIC
[2020-06-18 17:35] LABS: Urine Bacteria <20 /HPF (NONE SEEN); Urine Culture Reflex Order REFLEXED; Urine Mucus 2+ /HPF (NONE SEEN)
[2020-06-19] MEDS: NA CHLORIDE 0.9% 1,000 ML IV SCH ×4 (03:23→23:15)
[2020-06-19 05:42] LABS: Absolute Lymphocytes (CBC) 0.9 K/uL (0.7-4.9); Basophils % 0.3 % (0-1.3); Hematocrit 39.4 % (39.6-49.0); Lymphocytes % 11.2 % (15.3-44.8); MPV 9.3 fL (7.6-11.3); RBC Red Blood Cell Count 4.05 M/uL (4.33-5.43)
[2020-06-19 05:46] LABS: Albumin 3.3 g/dL (3.4-5.0); Bilirubin Total 0.9 mg/dL (0.2-1.0); Magnesium 1.6 mg/dL (1.8-2.4); Potassium 3.7 mmol/L (3.5-5.1); Protein, Total 6.7 g/dL (6.4-8.2)
[2020-06-19] MEDS ORDERED: MAGNESIUM SULFATE 1 gm IVPB 1 GM/100 ML BAG IV ONE (07:00)
[2020-06-19] MEDS: ENOXAPARIN 100 MG/ML SYR SQ SCH ×2 (08:46→22:01)
[2020-06-19] MEDS ORDERED: KCL 20 MEQ/100 mL IVPB 20 MEQ/100 ML BAG IV SCH (09:00)
--- NOTE | 2020-06-19 09:30 | RAD REPORT ---
EXAM DESCRIPTION: RAD - Abdomen 1 View (KUB) - 06/19/2020 9:21 am CLINICAL HISTORY: SBO COMPARISON: Abdomen 1 View (KUB) dated 06/18/2020; Abdomen Pelvis Wo Contrast dated 06/18/2020 FINDINGS: NG tube is in place, curled in the decompressed stomach. No free air or pneumatosis. Numer ous surgical clips are present. Multiple dilated small bowel loops are present not clearly different from comparison. Colon is mostly decompressed. No suspicious calcifications. IMPRESSION: Small bowel obstruction pattern similar to comparison. No free air or pneumatosis.
--- NOTE | 2020-06-19 11:23 | P.PN ---
Subjective Date of Service: 06/19/20 Primary Care Provider: Out of town Chief Complaint: small bowel obstruction Subjective: Improving (Had BM x3 this morning, no longer having pain) Review of Systems 10-point ROS is otherwise unremarkable Physical Examination - Vital Signs Temperature: 97.7 F Blood Pressure: 129/79 Pulse: 107 Respirations: 19 Pulse Ox (%): 95 - Physical Exam General: Alert, In no apparent distress HEENT: Atraumatic, PERRLA, EOMI Neck: Supple, JVD not distended Respiratory: Clear to auscultation bilaterally, Normal air movement Cardiovascular: Regular rate/rhythm, Normal S1 S2 Gastrointestinal: Soft and benign, Non-distended, No tenderness Musculoskeletal: No tenderness Integumentary: No rashes Neurological: Normal speech, Normal affect Assessment & Plan Physician Review Additional Text: SBO Atrial Fibrillation GERD HTN SBO -had BM x3 this morning, feeling better -clamp NGT, advane to CLD -repeat KUB in AM -General Surgery (Dr. Barnhart) consulted -serial abdominal exams, monitor closely Afib -restart home meds -hold Eliquis, continue Lovenox 1mg/kg GERD - protonix IV daily while NPO HTN - hold home ARB, amlodipine until taking PO Dispo: I anticipate discharge tomorrow if able to advance diet Time Spent Managing Pts Care (In Minutes): 30
[2020-06-19] MEDS: POTASS/SODIUM PHOSPHATE 1 PKT POWD.PACK PO SCH ×3 (12:26→15:24)
--- NOTE | 2020-06-19 13:15 | PN ---
Date of Progress Note: 06/19/2020 Subjective: The patient is awake, alert. No abdominal pain. Had a bowel movement. Passing gas. Objective: Vital Signs: Stable. Afebrile. Abdomen: Soft, nondistended, nontender. Positive bowel sounds. Imaging: X-ray reveals a decompressed stomach, but the small bowel is still dilated. NG tube has pu t a little bit out less than yesterday. Laboratory Data: Reviewed. Assessment: Small bowel obstruction, resolving. Recommendations: We will clamp NG tube and start him on clear liquids. Encourage ambulation and we will repeat the x-ray tomorrow and if he is tolerating the clear liquids with minimal residuals, we w ill discontinue the NG tube and advance his diet. /MODL Voice ID: [id number] Report ID: [id number]
[2020-06-19] MEDS: METOPROLOL TAR 25 MG TAB PO SCH (22:01)
[2020-06-20] MEDS: NA CHLORIDE 0.9% 1,000 ML IV SCH ×5 (01:31→11:45)
[2020-06-20] MEDS: PANTOPRAZOLE 40MG TABLET PO SCH ×2 (04:30→08:37)
[2020-06-20 06:42] LABS: Magnesium 1.6 mg/dL (1.8-2.4); Phosphorus 1.6 mg/dL (2.5-4.9); Potassium 3.9 mmol/L (3.5-5.1)
[2020-06-20] MEDS ORDERED: MAGNESIUM SULFATE 1 gm IVPB 1 GM/100 ML BAG IV ONE (08:00)
[2020-06-20] MEDS: POTASS/SODIUM PHOSPHATE 1 PKT POWD.PACK PO SCH ×3 (08:35→10:49)
[2020-06-20] MEDS: VALSARTAN 80 MG TAB PO SCH (08:36)
[2020-06-20] MEDS: ENOXAPARIN 100 MG/ML SYR SQ SCH ×2 (08:36→21:38)
[2020-06-20] MEDS: METOPROLOL TAR 25 MG TAB PO SCH ×2 (08:36→21:38)
[2020-06-20] MEDS: AMLODIPINE 5 MG TAB PO SCH (08:36)
[2020-06-20] MEDS ORDERED: POTASSIUM CL SA 10 MEQ TAB PO ONE (09:00)
[2020-06-20] MEDS ORDERED: CANDESARTAN CILEXETIL PO SCH (09:00)
--- NOTE | 2020-06-20 10:41 | RAD REPORT ---
EXAM DESCRIPTION: RAD - Abdomen W Erect - 06/20/2020 10:19 am CLINICAL HISTORY: F/U SBO COMPARISON: Abdomen Pelvis Wo Contrast dated 06/18/2020 TECHNIQUE: Supine and upright views of the abdomen were obtained. FINDINGS: NG tube is in place within the decompressed stomach. Distended to mildly dilated small bow el loops are still present in the mid and upper left abdomen. This pattern is not substantially diffe rent from the June 18 CT study. No free air or pneumatosis have developed. Numerous surgical clips overlie the abdomen and pelvis. IMPRESSION: Distended and dilated proximal small bowel pattern is still present not substantially di fferent from the June 18 CT imaging. No free air or pneumatosis.
--- NOTE | 2020-06-20 14:52 | PN ---
Date of Progress Note: 06/20/2020 Subjective: The patient is awake, alert. Tolerating clear liquids. No nausea or vomiting. Minimal NG output and he is having bowel movements. Physical Examination: Vital Signs: Stable. Afebrile. Abdomen: Benign. Assessment: Small bowel obstruction. Resolving. Recommendation: Discontinue NG tube. Advance diet. Patient is clinically doing well. /MODL Voice ID: [id number] Report ID: [id number]
--- NOTE | 2020-06-20 17:10 | P.PN ---
Subjective Date of Service: 06/20/20 Primary Care Provider: Out of town Chief Complaint: small bowel obstruction Subjective: Improving (Tolerating clear liquid diet, reports no pain this morning. Had more small bowel movements) Review of Systems 10-point ROS is otherwise unremarkable Physical Examination - Vital Signs Temperature: 97.6 F Blood Pressure: 156/95 Pulse: 92 Respirations: 18 Pulse Ox (%): 95 - Physical Exam General: Alert, In no apparent distress HEENT: PERRLA, Other (NG-tube in place), EOMI Neck: Supple, JVD not distended Respiratory: Clear to auscultation bilaterally, Normal air movement Cardiovascular: Regular rate/rhythm, Normal S1 S2 Gastrointestinal: Soft and benign, Non-distended, No tenderness Musculoskeletal: No tenderness Integumentary: No rashes Neurological: Normal speech, Normal affect - Studies Microbiology Data (last 24 hrs): 06/18/20 08:17 Nasopharnyx Coronavirus COVID-19 PCR - Final Assessment & Plan Physician Review Additional Text: SBO Atrial Fibrillation GERD HTN SBO -continues to have small bowel movements, feeling better -tolerating clear liquid diet, general surgery to pull NG tube and advance to full liquid diet -General Surgery (Dr. Barnhart) consulted -serial abdominal exams, monitor closely -x-ray remains fairly unchanged Afib -restart home meds -hold Eliquis, continue Lovenox 1mg/kg GERD - continue home protonix PO HTN - continue home ARB, amlodipine Dispo: I anticipate discharge tomorrow if able to advance diet Time Spent Managing Pts Care (In Minutes): 35
[2020-06-21] MEDS: NA CHLORIDE 0.9% 1,000 ML IV SCH ×2 (02:34→08:00)
[2020-06-21] MEDS: PANTOPRAZOLE 40MG TABLET PO SCH ×2 (03:22→08:29)
[2020-06-21 04:17] VITALS: O2SAT 97
[2020-06-21 06:13] LABS: Magnesium 1.6 mg/dL (1.8-2.4); Phosphorus 2.2 mg/dL (2.5-4.9); Potassium 3.8 mmol/L (3.5-5.1)
[2020-06-21] MEDS ORDERED: MAGNESIUM SULFATE 1 gm IVPB 1 GM/100 ML BAG IV ONE (08:00)
[2020-06-21] MEDS: POTASS/SODIUM PHOSPHATE 1 PKT POWD.PACK PO SCH ×2 (08:29→09:51)
[2020-06-21] MEDS: AMLODIPINE 5 MG TAB PO SCH (08:29)
[2020-06-21] MEDS: VALSARTAN 80 MG TAB PO SCH (08:30)
[2020-06-21] MEDS: ENOXAPARIN 100 MG/ML SYR SQ SCH (08:30)
[2020-06-21] MEDS: METOPROLOL TAR 25 MG TAB PO SCH (08:39)
[2020-06-21] MEDS ORDERED: POTASSIUM 25 MEQ EFFERV TAB PO ONE (09:00)
--- NOTE | 2020-06-21 12:31 | P.DS ---
Admission Date: 06/18/20 Discharge Date: 06/21/20 Primary Care Provider: Out of town Disposition: ROUTINE DISCHARGE Discharge Condition: GOOD Reason for Admission: small bowel obstruction Consultations: General Surgery - Dr. Barnhart Procedures: CT - Abdomen Pelvis Wo Contrast - 06/18/2020 7:50 am Stomach is distended. Mild to moderate dilatation of jejunum and proximal ileum. The remainder of the ileum is decompressed. Mild edema within the mesenteric. No free air. Postsurgical changes involve the pelvis, ureters and bladder. Small hepatic lesions nonspecific but probably cysts. Bold splenic granulomata are present. Multiple small ventral hernias contain fat IMPRESSION: Mild to moderate small bowel obstruction Problem list SBO Afib GERD HTN Brief History of Present Illness: 79yo male, PMH: Afib, HTN, GERD, Bladder CA s/p resection / sneha-bladder who pres ented to ED with significant abdominal pain and nausea that began at 9 pm yesterday. He reports this is the first episode of pain like this. He reports he typically has a BM daily, but did not have one that day. The pain persisted and was severe enough that he presented to ED. Pain is most severe just left of umbilicus, does not radiate. Moving and abdominal pressure worsens the pain. Nothing has alleviated the pain at home. A CT abdomen was done in ED: consistent with mild-mod SBO, no perforation. Labs notable for Cr: 1.43, otherwise unremarkable. Vitals WNL & stable. General surgery was consulted in ED. NGT was placed Hospital Course: Patient was admitted for management of his SBO. An NG tube was placed in the ER, and he was made NPO. He had a BM the day after admission. . During his hospitalization he continued to have small BM's, and he eventually had his NGT removed and slowly advanced his diet. On day of discharge, he was tolerating a GI soft diet without any nausea/vomiting or pain. Vital Signs/Physical Exam: Temp Pulse Resp BP Pulse Ox 97.5 F 108 H 19 163/98 H 96 06/21/20 08:00 06/21/20 08:00 06/21/20 08:00 06/21/20 08:00 06/21/20 08:00 General: Alert, In no apparent distress HEENT: Atraumatic, PERRLA, EOMI Neck: Supple, JVD not distended Respiratory: Clear to auscultation bilaterally, Normal air movement Cardiovascular: Regular rate/rhythm, Normal S1 S2 Gastrointestinal: Normal bowel sounds, Soft and benign, No tenderness Musculoskeletal: No tenderness Integumentary: No rashes Neurological: Normal speech, Normal affect Laboratory Data at Discharge: WBC 8.1 K/uL (4.3-10.9) 06/19/20 05:04 Hgb 13.2 g/dL (13.6-17.9) L 06/19/20 05:04 Hct 39.4 % (39.6-49.0) L 06/19/20 05:04 Plt Count 181 K/uL (152-406) 06/19/20 05:04 Sodium 140 mmol/L (136-145) 06/21/20 05:50 Potassium 3.8 mmol/L (3.5-5.1) 06/21/20 05:50 BUN 7 mg/dL (7-18) 06/21/20 05:50 Creatinine 1.05 mg/dL (0.55-1.3) 06/21/20 05:50 Glucose 91 mg/dL (74-106) 06/21/20 05:50 Phosphorus 2.2 mg/dL (2.5-4.9) L 06/21/20 05:50 Magnesium 1.6 mg/dL (1.8-2.4) L 06/21/20 05:50 Total Bilirubin 0.9 mg/dL (0.2-1.0) 06/19/20 05:04 AST 19 U/L (15-37) 06/19/20 05:04 ALT 22 U/L (12-78) 06/19/20 05:04 Alkaline Phosphatase 49 U/L (45-117) 06/19/20 05:04 Lipase 233 U/L (73-393) 06/18/20 05:10 Home Medications: Acetaminophen [Tylenol Extra Strength] 1 tab PO Q6H PRN 06/18/20 Amlodipine [Norvasc*] 1 tab PO DAILY 06/18/20 Apixaban [Eliquis *] 1 tab PO BID 06/18/20 Candesartan Cilexetil 1 tab PO DAILY 06/18/20 Metoprolol Tartrate 1 tab PO BID 06/18/20 Pantoprazole [Protonix Tab*] 1 tab PO DAILY 06/18/20 Patient Discharge Instructions: Follow up with PCP within 1 week Diet: soft diet Activity: Ad catherine Followup: Sergei Barnhart MD [ACTIVE - CAN ADMIT] - Time spent managing pt's care (in minutes): 25
--- NOTE | 2020-06-21 14:42 | PN ---
Date of Progress Note: 06/21/2020 Subjective: The patient is awake, alert, tolerating full liquids, having bowel movements, passing ga s. Objective: VITAL SIGNS: Stable. Afebrile. ABDOMEN: Benign. Assessment: Small bowel obstruction appears to resolve. Recommendations: Advanced diet to GI soft if tolerated. Cleared from surgical standpoint for discha rge. I advised to eat small frequent meals and follow up with PCP. /MODL Voice ID: [id number] Report ID: [id number]
[2020-06-21 17:19] VITALS: BP 138/84; TEMP 97.7
== END 2020-06-21 13:37 | disposition home or self-care (01) | DRG 390 ==
LOC: ER 04:03 → ERHOLD 11:02 → 2ND 13:46
PROVIDERS: ADMIT Hospitalist; ATTEND Hospitalist
DX: K56.609 Unspecified intestinal obstruction, unspecified as to partial versus complete obstruction (principal); K21.9 Gastro-esophageal reflux disease without esophagitis; I48.91 Unspecified atrial fibrillation; I10 Essential (primary) hypertension; Z85.51 Personal history of malignant neoplasm of bladder; Z79.01 Long term (current) use of anticoagulants; Z79.899 Other long term (current) drug therapy; Z87.891 Personal history of nicotine dependence; Z20.828 Contact with and (suspected) exposure to other viral communicable diseases
CPT/HCPCS: 36415; 74018; 74019; 74176; 80048; 80053; 80076; 81003; 81015; 83690; 83735; 84100; 85025; 87086; 87088; 93005; 94760; 96361; 96365; 96366; 96367; 96368; 96375; 99285; J1650; J2270; J2405; J2543; J3370; J3475; J3480; J7030; U0002

== ENCOUNTER 2020-11-15 11:41 | Emergency (ER) | payer OTHER, MEDICARE ==
--- OUTSIDE RECORDS SUMMARY | 2020-11-15 11:46 | XMS REPORT | Clinical Summary ---
:1940 Author Organization [facility] Address [address] [place] [address] Care Team Providers Name Role Phone Chuy [...] Smokeless Tobacco: Never Used Comments: QUIT SMOKING 1975 Alcohol Use Drinks/Week oz/Week Comments Yes OCCASIONALLY Sex Assigned at Date Recorded Not on file Last Filed Vital Signs Not on file Plan of Treatment Not on file Results Not on fileafter 11/15/2019 Insurance Payer Benefit Plan / Subscriber ID Effective Dates Phone Addre ss Type Group MEDICARE MEDICARE A B [id number] 2015-Present Medicare [facility] [employer]/[place] [id number] 2015-Present Medigap SUPPLEMENT/[employer]
--- OUTSIDE RECORDS SUMMARY | 2020-11-15 11:46 | XMS REPORT | Continuity of Care Document ---
:1940 Author Organization [facility] t Address [address] [place] [address] Care Team Providers Name Role Phone Chuy Mireles MD Primary Care Physician Only, Test Attending Clinician Unavailable Melani FELIX, H Attending Clinician Bebeto Webster MD Attending Clinician Darin FELIX C Admitting Clinician Payers Payer Name Policy Type [...] Known DA Active U 2013-10 [facility] [place] [facility] No Known DA Active U 2008- [facility] [place] [facility] Social History Social Habit Start Date Stop Date Quantity Comments Source Sex Assigned At [facility] Tobacco use and 2016-02-18 2016-02-[address] [facility] - exposure 00:00:00 00:00:00 [facility] Alcohol intake 2016-02-18 2016-02-18 [facility] drink[facility] of [facility] - 00:[facility] 00:00:00 alcohol (finding) [facility] Tobacco Comment 2016-02-15 2016-02-15 QUIT SMOKING [address] [facility] - 00:00:00 00:00:00 [facility] Alcohol Comment 2016-02-15 2016-02-[address] [facility] - 00:00:00 00:00:00 [facility] Smoking Status Start Date Stop Date Source Former smoker 2016-02-18 00:00:00 2016-02-18 00:00:00 [facility] Medications Ordered Filled Start Stop Current Ordering Indication Dosage Frequency Signature Comments Components Source Medication Medication Date Date Medication? Clinician (SIG) Name Name apixaban Yes 5mg Q.5D Take [address] [facility] [address] (ELIQUIS) 5 5-02 by mouth 2 [facility] - mg Tab 11:54: (two) Medical tablet 04 times Center daily. lansoprazol Yes 30mg QD Take [address] [facility] e 5-02 by [facility] - (PREVACID) 11:54: daily. Medic al 30 MG 04 Center capsule famotidine Yes 20mg Take [address] (PEPCID) 20 5-02 by mouth Luke s - MG tablet 11:54: as needed Med ical 04 . Center Procedures This patient has no known procedures. Encounters Start End Encounter Admission Attending Care Care Encounter Source Date/Time Date/Time Type Type Clinicians Facility Department ID 2020-09-12 2020-09-12 Laboratory Only, [facility] [id number] 09:19:35 09:34:35 Only Test [place] [id number] [place] [id number] [place] [id number] 2020-09-12 2020-09-12 Letter ANNY Polo [id number] 00:00:00 00:00:00 (Out) Armaan H TIFFANY [id number] [facility] [id number] 2020-04-12 2020-04-12 [facility] [id number] 07:56:00 11:17:00 [place] [id number] [place] [id number] [facility] [id number] [place] 071 2020-04-11 2020-04-11 Laboratory Only, [facility] [id number] 12:02:55 12:17:55 Only Test [place] [id number] [place] [id number] [place] [id number] Results This patient has no known results.
[2020-11-15 13:33] LABS: Absolute Lymphocytes (CBC) 1.5 K/uL (0.7-4.9); Basophils % 0.8 % (0-1.3); Hematocrit 39.7 % (39.6-49.0); Lymphocytes % 18.7 % (15.3-44.8); MPV 9.1 fL (7.6-11.3)
[2020-11-15 13:41] LABS: Albumin 3.9 g/dL (3.4-5.0); Bilirubin Direct 0.2 mg/dL (0-0.2); Bilirubin Total 0.4 mg/dL (0.2-1.0); Magnesium 1.7 mg/dL (1.8-2.4); Potassium 4.6 mmol/L (3.5-5.1); Protein, Total 7.9 g/dL (6.4-8.2); Troponin (Emerg Dept Use Only) 0.02 ng/mL (0.0-0.045)
[2020-11-15 13:42] LABS: Protime INR 1.15
--- NOTE | 2020-11-15 14:41 | RAD REPORT ---
EXAM DESCRIPTION: RAD - Chest Single View - 11/15/2020 2:36 pm CLINICAL HISTORY: CHEST PAIN Chest pain. COMPARISON: Abdomen 1 View (KUB) dated 06/19/2020; Abdomen 1 View (KUB) dated 06/18/2020; Chest Pa And Lat (2 Views) dated 10/22/2017; Chest Single View dated 09/01/2017 FINDINGS: Portable technique limits examination quality. The lungs are grossly clear. The heart is normal in size. Right shoulder arthroplasty.Mild tortuosity of the thoracic aorta with aortic atherosclerosis. IMPRESSION: No acute intrathoracic process suspected.
[2020-11-15] MEDS ORDERED: KETOROLAC 30 MG/ML INJ ONE (17:17)
--- NOTE | 2020-11-15 18:25 | EDPHYS ---
Physician Documentation [facility] Name: Alpesh Alves Age: 80 yrs Sex: Male : 1940 Arrival Date: 11/15/2020 Time: 11:45 Bed 13 Private MD: Lalo Mireles B ED Physician Dano Dick HPI: 11/15 16:00 This 80 yrs old Male presents to ER via Ambulatory with complaints of Chest cp Pain. 16:00 The patient or guardian reports chest pain that is located primarily in the anterior cp chest wall, bilaterally. 16:00 Onset: today. The pain does not radiate. Associated signs and symptoms: Pertinent cp negatives: abdominal pain, cough, diaphoresis, lower extremity pain, lower extremity swelling, shortness of breath, syncope. The chest pain is described as aching. Duration: The patient or guardian reports multiple episodes, that are intermittent. Modifying factors: the symptoms are aggravated by movement. Severity of pain: in the emergency department the pain has improved moderately. Patient reports having episode of chest pain that started after attempting to strike golf ball this morning. Reports golf club struck ground short of golf ball. Patient reports immediate pain. Patient reports episode of chest pain while opening jar of food yesterday. Historical: - Allergies: 12:13 BP medication - unknown; ca1 - PMHx: 12:13 Arthritis; Atrial Fib; Bladder cancer; CARPAL STEVEN. TO LEFT HAND; GERD; Hypertension; ca1 - PSHx: 12:13 urine bladder surgery; Hernia repair; ca1 - Immunization history:: Pneumococcal vaccine is up to date, Flu vaccine is up to date. Covid [id number] dose. - Social history:: Smoking status: Patient/guardian denies using tobacco, the patient reports quitting approximately 30 years ago. ROS: 16:05 Constitutional: Negative for body aches, chills, fever, poor PO intake. cp 16:05 Cardiovascular: Positive for chest pain, of the bilateral chest wall, Negative for cp edema, palpitations. 16:05 Eyes: Negative for injury, pain, redness, and discharge. cp 16:05 ENT: Negative for ear pain, sore throat, difficulty swallowing, difficulty handling cp secretions. 16:05 Respiratory: Negative for cough, shortness of breath, wheezing. 16:05 Abdomen/GI: Negative for abdominal pain, nausea, vomiting, and diarrhea, constipation, black/tarry stool, rectal bleeding. 16:05 Back: Negative for pain at rest, pain with movement, radiated pain. 16:05 Skin: Negative for rash. 16:05 Neuro: Negative for altered mental status, headache, syncope, weakness. 16:05 All other systems are negative. Exam: 16:00 ECG was reviewed by the Attending Physician. cp 16:10 Constitutional: The patient appears in no acute distress, alert, awake, comfortable, cp non-diaphoretic, non-toxic, well developed, well nourished. 16:10 Head/Face: Normocephalic, atraumatic. cp 16:10 Eyes: Periorbital structures: appear normal, Conjunctiva: normal, no exudate, no injection, Sclera: no appreciated abnormality, Lids and lashes: appear normal, bilaterally. 16:10 ENT: External ear(s): are unremarkable, Nose: is normal, Posterior pharynx: Airway: no evidence of obstruction, patent. 16:10 Neck: ROM/movement: is normal, is supple, without pain, no range of motions limitations. 16:10 Chest/axilla: Inspection: normal, Palpation: crepitus, is not appreciated, tenderness, that is mild, of the anterior aspect of right upper chest, anterior aspect of left upper chest and mid-sternal area. 16:10 Cardiovascular: Rate: normal, Rhythm: regular, Pulses: Pulses are 2+ in right radial artery and left radial artery. Edema: is not appreciated, JVD: is not appreciated. 16:10 Respiratory: the patient does not display signs of respiratory distress, Respirations: normal, no use of accessory muscles, no retractions, labored breathing, is not present, Breath sounds: are clear throughout, no decreased breath sounds, no stridor, no wheezing. 16:10 Abdomen/GI: Inspection: abdomen appears normal, Bowel sounds: active, all quadrants, Palpation: abdomen is soft and non-tender, in all quadrants. 16:10 Back: pain, is absent, ROM is normal. 16:10 Neuro: Orientation: to person, place \T\ time. Mentation: is normal, Motor: moves all fours, strength is normal. Vital Signs: 12:05 BP 122 / 78; Pulse 81; Resp 16 S; Temp 99(TE); Pulse Ox 97% on R/A; Weight 106.59 kg ca1 (R); Height 6 ft. 0 in. (182.88 cm) (R); Pain 3/10; 17:38 BP 132 / 89; Pulse 95; Resp 16; Pulse Ox 99% on R/A; iw 12:05 Body Mass Index 31.87 (106.59 kg, 182.88 cm) ca1 MDM: 13:00 Differential diagnosis: abnormal EKG, acute myocardial infarction, acute pericarditis, cp pneumonia, pneumothorax, pulmonary embolus, stable angina, thoracic aortic disection, unstable angina. 16:09 Patient medically screened. cp 18:23 Data reviewed: vital signs, nurses notes, lab test result(s), EKG, radiologic studies, cp plain films, I have discussed the patient's presentation/case with the attending Emergency Department Physician;. 18:23 Test interpretation: by ED physician or midlevel provider: ECG, plain radiologic cp studies. ED course: VSS. Pain improved with IV Toradol. Will treat for musculoskeletal pain. Low suspicion pain is cardiac in nature. Initial and repeat troponin negative. No exertional pain. Will discharge to home for continued monitoring. 11/15 12:30 Order name: Basic Metabolic Panel ca1 11/15 12:30 Order name: CBC with Diff ca1 11/15 12:30 Order name: LFT's ca1 11/15 12:30 Order name: Magnesium ca1 11/15 12:30 Order name: NT PRO-BNP; Complete Time: 16: [facility] 11/15 12:30 Order name: PT-INR; Complete Time: 16: [facility] 11/15 12:30 Order name: Troponin (emerg Dept Use Only); Complete Time: 16: [facility] 11/15 12:30 Order name: XRAY Chest (1 view); Complete Time: 16: [facility] 11/15 12:31 Order name: Basic Metabolic Panel; Complete Time: 16: [facility] 11/15 12:31 Order name: CBC with Automated Diff; Complete Time: 16: [facility] 11/15 12:31 Order name: Liver (Hepatic) Function; Complete Time: 16: [facility] 11/15 12:31 Order name: Magnesium; Complete Time: 16: [facility] 11/15 17:12 Order name: Troponin I 11/15 12:01 Order name: EKG; Complete Time: 12: ca1 11/15 12:01 Order name: EKG - Nurse/Tech; Complete Time: 12:05 ca1 11/15 12:30 Order name: IV Saline Lock; Complete Time: 13: ca1 11/15 12:30 Order name: Labs collected and sent; Complete Time: 13: ca1 11/15 12:30 Order name: O2 Per Protocol; Complete Time: 16: ca1 11/15 12:30 Order name: O2 Sat Monitoring; Complete Time: 16: ca1 11/15 12:31 Order name: Cardiac monitoring; Complete Time: 16: ca1 EC:00 Rate is 84 beats/min. Rhythm is irregular. QRS interval is normal. QT interval is cp normal. Interpreted by me. Reviewed by me. Administered Medications: 17:07 Drug: TORadol - Ketorolac 15 mg Route: IVP; Site: right antecubital; iw Disposition: 11/16 07:03 Co-signature as Attending Physician, Dano Dick MD I agree with the assessment and kdr plan of care. Disposition: 11/15/20 18:24 Discharged to Home. Impression: Other chest pain. - Condition is Stable. - Discharge Instructions: Nonspecific Chest Pain, Aspirin and Your Heart. - Prescriptions for Diclofenac Sodium 75 mg Oral Tablet, Delayed Release (E.C.) - take 1 tablet by ORAL route 2 times per day As needed; 15 tablet. - Medication Reconciliation Form, Thank You Letter, Antibiotic Education, Prescription Opioid Use form. - Follow up: Dewey Martines MD; When: 1 - 2 days; Reason: Recheck today's complaints. Follow up: Lalo Mireles MD; When: 1 - 2 days; Reason: Recheck today's complaints. - Problem is new. - Symptoms have improved. Signatures: Dispatcher [employer] EDMS Dano Dick MD MD kdr Marcia Peng RN RN iw James Perez PA PA cp Acob, Cheryl, RN RN ca1 Corrections: (The following items were deleted from the chart) 11/15 18:23 18:22 ECG was reviewed by the Attending Physician. cp [place] 18:46 18:24 11/15/2020 18:24 Discharged to Home. Impression: Other chest pain. Condition is iw Stable. Forms are Medication Reconciliation Form, Thank You Letter, Antibiotic Education, Prescription Opioid Use. Follow up: Lalo Mireles; When: 1 - 2 days; Reason: Recheck today's complaints. Problem is new. Symptoms have improved. cp
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
[2020-11-15 22:27] VITALS: BP 132/89; O2SAT 99
[2020-11-15 22:29] VITALS: TEMP 99
--- NOTE | 2020-11-16 07:53 | EKG ---
Test Date: 2020-11-15 Test Time: 12:03:41 Flake Or Shred Roll Operator: DIONISIO MEASUREMENT RESULTS: Intervals: Rate: 84 SD: QRSD: 82 QT: 352 QTc: 415 [place]: P: SD: QRS: 20 T: 33 INTERPRETIVE STATEMENTS: Atrial fibrillation Abnormal ECG Compared to ECG 06/18/2020 04:49:59 T-wave abnormality no longer present Electronically Signed On 11-16-20 07:49:45 DIRECTOR DANCE by Dewey Martines
== END 2020-11-15 18:46 | disposition home or self-care (01) ==
LOC: ER 11:41
DX: R07.89 Other chest pain (principal); Z87.891 Personal history of nicotine dependence; M19.90 Unspecified osteoarthritis, unspecified site; I48.91 Unspecified atrial fibrillation; Z85.51 Personal history of malignant neoplasm of bladder; K21.9 Gastro-esophageal reflux disease without esophagitis; I10 Essential (primary) hypertension; G56.02 Carpal tunnel syndrome, left upper limb
CPT/HCPCS: 36415; 71045; 80048; 80076; 83735; 83880; 84484; 85025; 85610; 93005; 96374; 99285

== ENCOUNTER 2021-12-15 19:12 | Observation (INO) | payer OTHER, MEDICARE ==
--- OUTSIDE RECORDS SUMMARY | 2021-12-15 19:16 | XMS REPORT | Continuity of Care Document ---
:1940 Author Organization [facility] t Address [address] [place] [address] Care Team Providers Name Role Phone Chuy Mireles MD Primary Care Physician eBbeto WEBSTER Attending Clinician Unavailable Cristopher HUERTA Attending Clinician Unavailable Cristopher Huerta DO Attending Clinician Verito RICHARDS Attending Clinician Unavailable Therapy, Covid Infusion Attending Clinician Unavailable Verito Richards MD Attending Clinician Doctor Unassigned, Name Attending Clinician Unavailable DHAMOTHARAN Attending Clinician Unavailable Joy FELIX, P Attending Clinician Malcolm Fong Attending Clinician Unavailable Only, Test Attending Clinician Unavailable Endy FELIX Attending Clinician ENDY Attending Clinician Unavailable Melani FELIX, H Attending Clinician Darin FELIX C Attending Clinician Jaye FELIX Attending Clinician CEE Attending Clinician Unavailable Bebeto WEBSTER Admitting Clinician Unavailable Bebeto Webster MD Admitting Clinician Payers Payer Name Policy Type Policy Number Effective Date Expiration Date S vin MEDICARE PART A \\T\\ [id number] 2004 B 00:00:00 [facility] [id number] 2015 MEDICARE SUPPLEMENT 00:00:00 Problems Condition Condition Condition Status Onset Resolution Last Treating Co mments Source Name Details Category Date Date Treatment Clinician Date SBO (small SBO (small Disease Active [facility] bowel bowel 04-12 [place] obstructio obstructio 00:00: of n) n) 00 [facility] e 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 (gastroeso (gastroeso 830 Co llege phageal phageal 00:00: of reflux reflux 00 Medicin disease) disease) e B12 B12 Disease Active 2010-[address] [facility] deficiency deficiency 102 Co llege 00:00: of 00 Medicin e Constipati Constipati Disease Active 2010-10 [facility] on on 0-06 College 00:00: of 00 Medicin e SHIMON SHIMON Disease Active 2010-[address] 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 (hypertens (hypertens Co llege ion) ion) of Medicin e Allergies, Adverse Reactions, Alerts Allergy Allergy Status Severity Reaction(s) Onset Inactive Treating Comm ents Source Name Type Date Date Clinician No Known DA Active U [facility] [place] [facility] No Known DA Active U 2013-10 [facility] [place] All[facility] 00:00: Orthope s 00 dic [facility] No Known DA Active U [facility] 06-19 [facility] 00:00: Orthope [facility] dic [facility] No Known DA Active U [facility] 06[facility]19 [place] [facility] 00:[facility]ope [facility] dic [facility]osp[facility] NO KNOWN Drug Active Univers ALLERGIE Class [facility] [place] [facility] Social History Social Habit Start Date Stop Date Quantity Comments Source Exposure to Not sure University of SARS-CoV-2 [place] [facility] (event) Branch History SDOH [facility] Alcohol [facility] History SDOH [facility] - Alcohol Std Medical Cente r Drinks History SDOH [facility] - Alcohol Binge Medical [address] Alcohol intake 2016-02-18 2016-02-18 [facility] drinker [facility] - 00:[facility]00 00:00:00 alcohol (finding) [facility] Tobacco use and 2016-02-15 2016-02-[address] [facility] [facility] - exposure 00:00:00 00:00:00 [facility] Alcohol Comment 2016-02-15 2016-02-[address] [facility] - 00:00:00 00:00:00 [facility] Tobacco Comment 2016-02-15 2016-02-15 QUIT SMOKING [address] [facility] - 00:00:00 00:00:00 [facility] Cigarettes smoked 2011-07-24 2011-07-24 [facility] current (pack per 00:00:00 00:00:00 Medicin e day) - Reported Cigarette 2011-07-24 2011-07-24 [facility] pack-years 00:00:00 00:00:00 Medicine History of 1975-10-19 Cigarette Smoker [facility] toribio of tobacco use 00:00:00 Medicine Sex Ass[birth year] At [birth year] KAIDEN Pinedos - 00:00:00 00:00:00 [facility] Smoking Status Start Date Stop Date Source Former smoker 2011-04-21 00:00:00 2011-04-21 00:00:00 [facility] Medications Ordered Filled Start Stop Current Ordering Indication Dosage Frequency Signature Comments Components Source Medication Medication Date Date Medication? Clinician (SIG) Name Name casirivimab 2020- No [id number] 1200mg 1,200 mg, Univers -imdevimab 06-13 IV ity of 1200 mg in 22:30: 21:49 Infusion, [place] 60 mL NS 00 :00 ONCE, Medical MINI-BAG Administer Branc h over 20 Minutes, Celena 06/13/21 at 1730, For 1 dose
Ad lamination builder as an IV infusion via pump or gravity through an intravenou s line containing a sterile, in-line or add-on 0.2-micron polyethers ulfone (PES) filter. Stable 36 hours refrigerat ed; 4 hours at room temperatur e.
casirivimab 2020- No [id number] 1200mg 1,200 mg, Univers -imdevimab 06-13 IV ity of 1200 mg in 22:30: 21:49 Infusion, [place] 60 mL NS 00 :00 ONCE, Medical MINI-BAG Administer Branc h over 20 Minutes, Celena 06/13/21 at 1730, For 1 dose
Ad lamination builder as an IV infusion via pump or gravity through an intravenou s line containing a sterile, in-line or add-on 0.2-micron polyethers ulfone (PES) filter. Stable 36 hours refrigerat ed; 4 hours at room temperatur e.
CANDESARTAN 0 Yes 1{tbl} Take 1 Ba [facility] CILEXETIL 6-24 Tablet by Celina ge OR 12:33: mouth of 33 daily. Medicin e Apixaban 0 2020- No 2.5mg Take 2.5 [place] rohit 2.5 MG TABS 6-24 06-24 mg by Candice e 12:33: 00:00 mouth two of 23 :00 times Medicin daily. e DECARA 625 0 Yes 1{tbl} Take 1 [place] rohit MCG ([id number] 5-03 Tablet by Ruth BURKETT) CAPS 00:00: mouth of 00 every 7 Medicin days. e Apixaban 2019-0 Yes 1{tbl} 1 Tablet. [facility] 2.5 MG TABS 8-31 College 00:00: of 00 Medicin e metoprolol 2020-0 Yes 25mg Take 25 mg U nivers succinate 6-25 by mouth 2 ity of XL 25 mg 24 16:18: (two) [place] hr tablet 35 times Medical daily. Branch pantoprazol 2020-0 Yes 40mg Take 40 mg Univers e 6-25 by mouth ity of (PROTONIX) 16:18: daily. [place] 40 mg EC 35 Medical tablet Branch amLODIPine 2020-0 Yes 5mg Take 5 mg Un leonard 2.5 mg 6-25 by mouth ity of tablet 16:18: daily. [place] 35 Medical Branch apixaban 2020-0 Yes 5mg Take 5 mg Univ ers (ELIQUIS) 6-25 by mouth 2 ity of 2.5 mg 16:18: (two) [place] tablet 35 times Medical daily. Branch metoprolol 2020-0 Yes 25mg Take 25 mg U nivers succinate 6-25 by mouth 2 ity of XL 25 mg 24 16:18: (two) [place] hr tablet 35 times Medical daily. Branch pantoprazol 2020-0 Yes 40mg Take 40 mg Univers e 6-25 by mouth ity of (PROTONIX) 16:18: daily. [place] 40 mg EC 35 Medical tablet Branch amLODIPine 2020-0 Yes 5mg Take 5 mg Un leonard 2.5 mg 6-25 by mouth ity of tablet 16:18: daily. [place] [address] Medical Branch apixaban 2020-0 Yes 5mg Take 5 mg Univ ers (ELIQUIS) 6-25 by mouth 2 ity of 2.5 mg 16:18: (two) [place] tablet 35 times Medical daily. Branch metoprolol 2020-0 Yes 25mg Take 25 mg U nivers succinate 6-25 by mouth 2 ity of XL 25 mg 24 16:18: (two) [place] hr tablet 35 times Medical daily. Branch pantoprazol 2020-0 Yes 40mg Take 40 mg Univers e 6-25 by mouth ity of (PROTONIX) 16:18: daily. [place] 40 mg EC 35 Medical tablet Branch amLODIPine 2020-0 Yes 5mg Take 5 mg Un leonard 2.5 mg 6-25 by mouth ity of tablet 16:18: daily. [place] [address] Medical Branch apixaban 2020-0 Yes 5mg Take 5 mg Univ ers (ELIQUIS) 6-25 by mouth 2 ity of 2.5 mg 16:18: (two) [place] tablet 35 times Medical daily. Branch metoprolol 2020-0 Yes 25mg Take 25 mg U nivers succinate 6-25 by mouth 2 ity of XL 25 mg 24 16:18: (two) [place] hr tablet 35 times Medical daily. Branch pantoprazol 2020-0 Yes 40mg Take 40 mg Univers e 6-25 by mouth ity of (PROTONIX) 16:18: daily. [place] 40 mg EC 35 Medical tablet Branch amLODIPine 2020-0 Yes 5mg Take 5 mg Un leonard 2.5 mg 6-25 by mouth ity of tablet 16:18: daily. [place] [address] Medical Branch apixaban 2020-0 Yes 5mg Take 5 mg Univ ers (ELIQUIS) 6-25 by mouth 2 ity of 2.5 mg 16:18: (two) [place] tablet 35 times Medical daily. Branch metoprolol 2020-0 Yes 25mg Take 25 mg U nivers succinate 6-25 by mouth 2 ity of XL 25 mg 24 16:18: (two) [place] hr tablet 35 times Medical daily. Branch pantoprazol 2020-0 Yes 40mg Take 40 mg Univers e 6-25 by mouth ity of (PROTONIX) 16:18: daily. [place] 40 mg EC 35 Medical tablet Branch amLODIPine 2020-0 Yes 5mg Take 5 mg Un leonard 2.5 mg 6-25 by mouth ity of tablet 16:18: daily. [place] [address] Medical Branch apixaban 2020-0 Yes 5mg Take 5 mg Univ ers (ELIQUIS) 6-25 by mouth 2 ity of 2.5 mg 16:18: (two) [place] tablet 35 times Medical daily. Branch metoprolol 2020-0 Yes 25mg Take 25 mg U nivers succinate 6-25 by mouth 2 ity of XL 25 mg 24 16:18: (two) [place] hr tablet 35 times Medical daily. Branch pantoprazol 2020-0 Yes 40mg Take 40 mg Univers e 6-25 by mouth ity of (PROTONIX) 16:18: daily. [place] 40 mg EC 35 Medical tablet Branch amLODIPine 2020-0 Yes 5mg Take 5 mg Un leonard 2.5 mg 6-25 by mouth ity of tablet 16:18: daily. [address] Branch apixaban 2020-0 Yes 5mg Take 5 mg Univ ers (ELIQUIS) 6-25 by mouth 2 ity of 2.5 mg 16:18: (two) [place] tablet 35 times Medical daily. Branch metoprolol 2020-0 Yes 25mg Take 25 mg U nivers succinate 6-25 by mouth 2 ity of XL 25 mg 24 16:18: (two) [place] hr tablet 35 times Medical daily. Branch pantoprazol 2020-0 Yes 40mg Take 40 mg Univers e 6-25 by mouth ity of (PROTONIX) 16:18: daily. [place] 40 mg EC 35 Medical tablet Branch amLODIPine 2020-0 Yes 5mg Take 5 mg Un leonard 2.5 mg 6-25 by mouth ity of tablet 16:18: daily. [place] [address] Medical Branch apixaban 2020-0 Yes 5mg Take 5 mg Univ ers (ELIQUIS) 6-25 by mouth 2 ity of 2.5 mg 16:18: (two) [place] tablet 35 times Medical daily. Branch water for 2020-0 Yes PRN, Univers irrigation 6-25 Starting ity o f irrigation 14:47: Celena [place] solution 00 04/12/20 at Medic al 0947, Branch Until Discontinu ed, Routine, Intra-op simethicone 2020-0 Yes PRN, Univer s (GAS RELIEF 6-25 Starting ity of (SIMETHICON 14:47: Celena [place] E)) 40 00 04/12/20 at Medical mg/0.6 mL 0947, Branch drops Until Discontinu ed, Routine, Intra-op lactated 2020-0 2020- No 1000mL at 20 Unive rs ringers IV 6- 06-25 mL/hr, ity of infusion 13:15: 13:09 1,000 mL, Jake as 1,000 mL 00 :00 IV Medical Infusion, Branch ONCE, 1 dose, [place]ena 04/12/20 at 0815, Routine, Endo Pre-op apixaban 2020-0 Yes 5mg Take 5 mg Univ ers (ELIQUIS) 6-25 by mouth 2 ity of 2.5 mg 11:18: (two) [place] tablet 35 times Medical daily. Branch metoprolol 2020-0 Yes 25mg Take 25 mg U nivers succinate 6-25 by mouth 2 ity of XL 25 mg 24 11:18: (two) [place] hr tablet 35 times Medical daily. Branch pantoprazol 2020-0 Yes 40mg Take 40 mg Univers e 6-25 by mouth ity of (PROTONIX) 11:18: daily. [place] 40 mg EC 35 Medical tablet Branch amLODIPine 2020-0 Yes 5mg Take 5 mg Un leonard 2.5 mg 6-25 by mouth ity of tablet 11:18: daily. [place] 35 Medical Branch apixaban 2020-0 Yes 5mg Take 5 mg Univ ers (ELIQUIS) 6-23 by mouth 2 ity of 2.5 mg 19:22: (two) [place] tablet 46 times Medical daily. Branch metoprolol 2020-0 Yes 25mg Take 25 mg U nivers succinate 6-23 by mouth 2 ity of XL 25 mg 24 19:22: (two) [place] hr tablet 46 times Medical daily. Branch pantoprazol 2020-0 Yes 40mg Take 40 mg Univers e 6-23 by mouth ity of (PROTONIX) 19:22: daily. [place] 40 mg EC 46 Medical tablet Branch amLODIPine 2020-0 Yes 5mg Take 5 mg Un leonard 2.5 mg 6-23 by mouth ity of tablet 19:22: daily. [place] 46 Medical Branch apixaban 2020-0 Yes 5mg Take 5 mg Univ ers (ELIQUIS) 6-23 by mouth 2 ity of 2.5 mg 19:22: (two) [place] tablet 46 times Medical daily. Branch metoprolol 2020-0 Yes 25mg Take 25 mg U nivers succinate 6-23 by mouth 2 ity of XL 25 mg 24 19:22: (two) [place] hr tablet 46 times Medical daily. Branch pantoprazol 2020-0 Yes 40mg Take 40 mg Univers e 6-23 by mouth ity of (PROTONIX) 19:22: daily. [place] 40 mg EC 46 Medical tablet Branch amLODIPine 2020-0 Yes 5mg Take 5 mg Un [place]ard 2.5 mg 6-23 by mouth ity of tablet 19:22: daily. [place] [address] Medical Branch apixaban 2020-0 Yes 5mg Take 5 mg Univ ers (ELIQUIS) 6-23 by mouth 2 ity of 2.5 mg 19:22: (two) [place] tablet 46 times Medical daily. Branch metoprolol 2020-0 Yes 25mg Take 25 mg U nivers succinate 6-23 by mouth 2 ity of XL 25 mg 24 19:22: (two) [place] hr tablet 46 times Medical daily. Branch pantoprazol 2020-0 Yes 40mg Take 40 mg Univers e 6-23 by mouth ity of (PROTONIX) 19:22: daily. [place] 40 mg EC 46 Medical tablet Branch amLODIPine 2020-0 Yes 5mg Take 5 mg Un [place]onard 2.5 mg 6-23 by mouth ity of tablet 19:22: daily. [place] [address] Medical Branch apixaban 2020-0 Yes 5mg Take 5 mg Univ ers (ELIQUIS) 6-23 by mouth 2 ity of 2.5 mg 19:22: (two) [place] tablet 46 times Medical daily. Branch metoprolol 2020-0 Yes 25mg Take 25 mg U nivers succinate 6-23 by mouth 2 ity of XL 25 mg 24 19:22: (two) [place] hr tablet 46 times Medical daily. Branch pantoprazol 2020-0 Yes 40mg Take 40 mg Univers e 6-23 by mouth ity of (PROTONIX) 19:22: daily. [place] 40 mg EC 46 Medical tablet Branch amLODIPine 2020-0 Yes 5mg Take 5 mg Un [place]ard 2.5 mg 6-23 by mouth ity of tablet 19:22: daily. [address] pantoprazol 2019-0 Yes 40mg Take 40 mg Christ e 6-16 by mouth College (PROTONIX) 00:00: daily. of 40 MG 00 Medicin tablet e amlodipine 2019-0 Yes 5mg Take 5 mg Ba ylor (NORVASC) 5 6-16 by mouth Ruth ege MG tablet 00:00: daily. of 00 Medicin e metoprolol 2019-0 Yes 25mg Take 25 mg B [facility] (LOPRESSOR) 5-26 by mouth Ruth ege 25 MG 00:00: two times of tablet 00 daily. Medicin e apixaban 2015-0 Yes 5mg Q.5D Take [address] [facility] (ELIQUIS) 5 5-02 by mouth 2 [facility] - mg Tab 11:54: (two) Medical tablet 04 times Center daily. lansoprazol 0 Yes 30mg QD Take [address] e 5-02 by mouth [facility] - (PREVACID) 11:54: daily. Medic al 30 MG 04 Center capsule famotidine Yes 20mg Take [address] (PEPCID) 20 5-02 by mouth Luke s - MG tablet 11:54: as needed Med ical 04 . Center Vital Signs Vital Name Observation Time Observation Value Comments Source Systolic blood 2021-12-14 18:00:00 126 mm[Hg] Univer sity of pressure [facility] Diastolic blood 2021-12-14 18:00:00 89 mm[Hg] [facility] Heart rate 2021-12-14 18:00:00 84 /min [facility] Respiratory rate 2021-12-14 18:00:00 20 /min [facility] Oxygen saturation in 2021-12-14 18:00:00 95 /min [facility] Arterial blood by [facility] Pulse oximetry [facility] Body temperature 2021-12-14 17:24:26 36 Stephany [facility] Body height 2021-12-14 17:13:00 185.4 cm [facility] Body weight 2021-12-14 17:13:00 108.863 kg [facility] BMI 2021-12-14 17:13:00 31.66 kg/m2 Universi ty [facility] [place] [facility] Branch Systolic blood 2021-06-13 21:28:00 102 mm[Hg] Univer sity of pressure [place] [facility] Diastolic blood 2021-06-13 21:28:00 65 mm[Hg] Unive rsity of pressure [place] [facility] Heart rate 2021-06-13 21:28:00 95 /min Universi ty [facility] [place] [facility] Branch Body temperature 2021-06-13 21:28:00 37 Stephany Univ ersity [facility] [place] [facility] Respiratory rate 2021-06-13 21:28:00 24 /min Univ ersity [facility] Body height 2021-06-13 21:28:00 182.9 cm Universi ty [facility] [place] [facility] Body weight 2021-06-13 21:28:00 106.595 kg [facility]i ty [facility] [place] [facility] BMI 2021-06-13 21:28:00 31.87 kg/m2 Universi ty [facility] Oxygen saturation in 2021-06-13 21:28:00 93 /min University of Arterial blood by [facility] Pulse oximetry Branch Systolic blood 2021-04-11 17:33:00 154 mm[Hg] [facility] pressure Medicine Diastolic blood 2021-04-11 17:33:00 82 mm[Hg] [facility] pressure Medicine Heart rate 2021-04-11 17:33:00 94 /min [facility] Body height 2021-04-11 17:33:00 182.9 cm [facility] Body weight 2021-04-11 17:33:00 106.595 kg [facility] BMI 2021-04-11 17:33:00 31.87 kg/m2 [facility] Systolic blood 2020-04-12 16:10:00 135 mm[Hg] Univer sity of pressure [facility] Branch Diastolic blood 2020-04-12 16:10:00 74 mm[Hg] Unive rsity of pressure [facility] Branch Heart rate 2020-04-12 16:10:00 63 /min Universi ty [facility] Body temperature 2020-04-12 16:10:00 36.44 Stephany Univ ersity of [facility] Respiratory rate 2020-04-12 16:10:00 21 /min Univ ersity of [facility] Oxygen saturation in 2020-04-12 16:10:00 97 /min University of Arterial blood by [facility] Pulse oximetry Branch Body height 2020-04-10 19:15:00 180.3 cm Universi ty [facility] Body weight 2020-04-10 19:15:00 106.142 kg Universi ty [facility] BMI 2020-04-10 19:15:00 32.64 kg/m2 Universi ty [facility] Systolic blood 2020-04-12 16:10:00 135 mm[Hg] Univer sity of pressure [facility] Diastolic blood 2020-04-12 16:10:00 74 mm[Hg] [facility] Heart rate 2020-04-12 16:10:00 63 /min Universi ty [facility] Body temperature 2020-04-12 16:10:00 36.44 Stephany [facility] Respiratory rate 2020-04-12 16:10:00 21 /min [facility] Oxygen saturation in 2020-04-12 16:10:00 97 /min University of Arterial blood by [facility] Pulse oximetry Branch Body height 2020-04-10 19:15:00 180.3 cm Universi ty [facility] Body weight 2020-04-10 19:15:00 106.142 [facility] BMI 2020-04-10 19:15:00 32.64 kg/m2 [facility] Procedures Procedure Date / Time Performing Clinician Source Performed XR FOOT <3 VW RIGHT 2021-12-14 17:38:47 Gretel Huerta [facility] COMP. METABOLIC PANEL 2021-12-14 17:26:00 Gretel Huerta [facility] ([id number]) [facility] CBC WITH DIFF 2021-12-14 17:26:00 Gretel uHerta [facility] N-TERMINAL PRO-BNP 2021-12-14 17:26:00 Gretel Huerta [facility] CONSENT/REFUSAL FOR 2021-12-14 17:03:49 [facility]igned, [facility] NOTICE OF PRIVACY 2021-12-14 17:02:58 [facility], [facility] Name [facility] Branch CONSENT/REFUSAL FOR 2021-06-13 05:01:00 Doctor Unassigned, No Un [facility] DIAGNOSIS AND TREATMENT Name Medical Branch BASIC METABOLIC PANEL 2021-04-11 19:37:[address] [facility] COLONOSCOPY (ENDO) 2020-04-12 14:52:00 Lalo Mireles [facility] EGD (ENDO) 2020-04-12 14:29:35 Lalo Mireles [facility] COVID-19 (ID NOW RAPID 2020-04-11 17:41:00 Dao Webster [facility] TESTING) Medical Branch ASSIGNMENT OF BENEFITS 2020-04-11 17:00:48 Doctor Unassigned, No [facility] Plan of Care Planned Activity Planned Date Details Comments Source Future Scheduled 2021-04-12 COVID-19 Vaccine (1) [facility] of Test 10:35:50 [code = COVID-19 Medicine Vaccine (1)] Future Scheduled 2021-04-12 TETANUS SHOT (ADULT) [facility] of Test 10:35:50 [code = TETANUS SHOT Medicin e (ADULT)] Future Scheduled 2021-04-12 BMI FOLLOW UP PLAN [facility] of Test 10:35:50 [code = BMI FOLLOW Medicine UP PLAN] Future Scheduled 2021-04-12 ZOSTER VACCINE (1 of [facility] of Test 10:35:50 2) [code = ZOSTER Medicine VACCINE (1 of 2)] Future Scheduled 2021-04-12 FALL SCREEN [code = [facility] of Test 10:35:50 FALL SCREEN] Medicine Future Scheduled 2021-04-12 PNEUMOVAX >=[address] [facility] Co llege of Test 10:35:50 (PPSV23) [code = Medicine PNEUMOVAX >=65 (PPSV23)] Future Scheduled 2021-04-[address] [facility] Ruth ege of Test 10:35:50 (Initial) [code = Medicine MEDICARE AWV (Initial)] Future Scheduled 2021-04-12 FLU VACCINE > [address] [facility] C ollege of Test 10:35:50 MONTHS [code = FLU Medicine VACCINE > 6 MONTHS] Encounters Start End Encounter Admission Attending Care Care Encounter Source Date/Time Date/Time Type Type Clinicians Facility Department ID 2021-08-16 Outpatient R MAR RUST NAOMI [id number] Univers 02:39:05 Caitlin DAO [facility] 2021-12-14 2021-12-14 Emergency X BRADLEY RUST ERT [id number] Univers 11:15:00 13:02:00 GRETEL [facility] 2021-12-14 2021-12-14 [facility] [id number] Univers 11:15:00 13:02:00 Gretel CASTLE [id number] ity [facility] [id number] [id number] [facility] 084 Branch 2021-06-13 2021-06-13 Outpatient R [facility] [id number] Univers 15:30:00 15:30:00 [id number] [facility] 2021-06-13 2021-06-13 Outpatient R DELON [facility] [id number] Univers 15:30:00 15:30:00 TOMÁS [facility] 2021-06-13 2021-06-13 Nurse Therapy, Adc Covid Infusion RUST [id number] Univers 14:27:03 15:27:03 Visit Tomás Richards [id number] ity [facility] [id number] [place] [id number] [facility] 053 Branch 2021-06-13 2021-06-13 Orders Doctor MCCORMICK [id number] Univers 00:00:00 00:00:00 Only Unassigned, TIFFANY [id number] [place] [facility] [id number] Jake as [id number] [facility] 009 Branch 2021-06-09 2021-06-09 Outpatient R BRITTNY [facility] [id number] Univers 16:30:00 16:30:00 , WANDY [facility] 2021-06-09 2021-06-09 Outpatient R [facility] [id number] Univers 16:25:00 16:25:00 [id number] [facility] 2021-04-11 2021-04-11 Office STEPHANIE Hamilton [id number] [facility] 11:29:59 14:29:38 Visit Wallace Tammy AMBULATOR [id number] College Y [id number] [facility] 300 e 2020-09-17 2020-09-17 Outpatient Fong, [facility]G [id number] [facility] 09:15:00 09:15:00 Magdi [address] [facility] 2020-09-12 2020-09-12 Laboratory Only, [facility] Test RUST 1.2.840. 114 [id number] Univers 09:19:35 09:34:35 Only Binh Miranda 350.1.13.10 [facility] 4.2.7.2.686 [facility] [phone] [facility] [address] 2020-09-12 2020-09-12 Laboratory Only, [facility] 1.2.840.114 [id number] 09:19:35 09:34:35 Only Test Ezio 350.1.13.10 [place] 4.2.7.2.[address] [place] [id number] [facility] 2020-09-12 2020-09-12 Outpatient R [facility] [id number] Univers 09:00:00 09:00:00 [id number] [facility] 2020-09-12 2020-09-12 Outpatient R ENDY [facility] [id number] Univers 09:00:00 09:00:00 [facility] 2020-09-12 2020-09-12 ANNY Brown 1.2.840.114 [id number] Univers 00:00:00 00:00:00 (Out) Armaan ALLEN 350.1.13.10 i ty [facility] 4.2.7.2.686 Jake [id number] [address] 2020-09-12 2020-09-12 ANNY Brown 1.2.840.114 [id number] 00:00:00 00:00:00 (Out) Armaan ALLEN 350.1.13.10 [facility] 4.2.7.2.686 [id number] 019 2020-04-12 2020-04-12 [facility] 1.2.840.114 [id number] [facility] 07:56:00 11:17:00 Encounter Dao pavon [place] 350.1.13.10 ity [place] 4[place]2.7.2.686 [place] [facility] [id number] [address] 2020-04-12 2020-04-12 [facility] 1.2.840.114 7 [id number] 07:56:00 11:17:00 Encounter eSusanerickar Bebeto [place] 350.1.13.10 [place] 4.2.7.2.686 Surgical [id number] [place] [address] 2020-04-11 2020-04-11 Laboratory Only, [facility] Test [facility] 1.2.840. 114 [id number] [facility] 12:02:55 12:17:55 Only Arely Cee 350.1.13.10 [facility]y [place] 4.2.7.2.686 [facility] [place] [id number] [address] 2020-04-11 2020-04-11 [facility] 1.2.840[facility]114 7 [id number] 12:02:55 12:17:55 Only Test [place] 350.1.13.10 [place] 4.2.7.2.[address] [place] [id number] [facility] 2020-04-11 2020-04-11 Outpatient R ARELY CEE [facility] [id number] Univers 12:00:00 12:00:00 ity of [facility] 2020-04-11 2020-04-11 Orders Doctor ANNY 1.2.840.114 [id number] Univers 00:00:00 00:00:00 Only Unassigned, TIFFANY 350.1.13.[address] [place] [facility] 4.2.7.2.686 Jake as [phone] [address] Results Test Description Test Time Test Comments Results Result Comments Source CBC WITH DIFF 2021-12-14 18:45:49 Test Item Value Reference Range Interpretation Comme nts WBC (test code = 6690-2) See_Comment H [A utomated message] The system which ge nerated this result transmit sloane reference range: 4.20 - 1 0.70 10*3/?L. The reference r jessica was not used to interpr et this result as normal/abnor mal. RBC (test code = 789-8) See_Comment L [Au tomated message] The system which Aldis nerated this result transmit [place]oane reference range: 4.26 - 5 .52 10*6/?L. The reference r jessica was not used to interpr et this result as normal/abnor mal. HGB (test code = 718-7) 13.0 g/dL 12.2-16.4 HCT (test code = 4544-3) 39.7 % 38.4-49.3 MCV (test code = 787-2) 98.8 fL 81.7-95.6 H MCH (test code = 785-6) 32.3 pg 26.1-32.7 MCHC (test code = 786-4) 32.7 g/dL 31.2-35.0 RDW-SD (test code = 56169-2) 45.1 fL 38.5-51.6 RDW-CV (test code = 788-0) 12.4 % 12.1-15.4 PLT (test code = 777-3) See_Comment [Au tomated message] The system which Aldis nerated this result transmit sloane reference range: 150 - 32 8 10*3/?L. The reference range was not used to interpret th is result as normal/abnormal . MPV (test code = 36460-2) 10.2 fL 9.8-13.0 NRBC/100 WBC (test code = See_Comment [ Automated message] The 5679667798) system which Aldis nerated this result transmit sloane reference range: 0.0 - 10 .0 /100 WBCs. The reference r jessica was not used to interpr et this result as normal/abnor mal. NRBC x10^3 (test code = <0.01 See_Comment [Au tomated message] The 9231892348) system which Aldis nerated this result transmit sloane reference range: 10*3/?L. The reference range was not u sed to interpret this result as normal/abnormal . GRAN MAT (NEUT) % (test code 69.5 % = 770-8) IMM GRAN % (test code = 1.10 % 1610907987) LYMPH % (test code = 736-9) 13.1 % MONO % (test code = 5905-5) 14.4 % EOS % (test code = 713-8) 1.4 % BASO % (test code = 706-2) 0.5 % GRAN MAT x10^3(ANC) (test 8.17 10*3/uL 1.99-6.95 H code = 3559586301) IMM GRAN x10^3 (test code = 0.13 10*3/uL 0.00-0.06 H 5084480303) LYMPH x10^3 (test code = 1.54 10*3/uL 1.09-3.23 731-0) MONO x10^3 (test code = 1.70 10*3/uL 0.36-1.02 H 742-7) EOS x10^3 (test code = 0.17 10*3/uL 0.06-0.53 711-2) BASO x10^3 (test code = 0.06 10*3/uL 0.01-0.09 704-7) Lab Interpretation (test Abnormal code = 72662-1) [id number] 18:08:25 Test Item Value Reference Range Interpretation Comments NT-proBNP (test code 1210 pg/mL See_Comment H [Autom ated = 3116654746) message] The system which generated this result transmitted reference range : <=450. The reference range was not used to interpret this result as normal/abnormal . VERONIKA (test code = VERONIKA) Biotin has been reported to cause a negative bias, interpret results relative to patient's use of biotin. Lab Interpretation Abnormal (test code = 80637-2) [facility] (23684)2021-12-14 18:00:27 Test Item Value Reference Range Interpretation Comments NA (test code = 142 mmol/L 135-145 1175736441) K (test code = 4.7 mmol/L 3.5-5.0 1256785375) CL (test code = 106 mmol/L 98-108 3277132447) CO2 TOTAL (test code = 22 mmol/L 23-31 L 7762027596) AGAP (test code = 2-16 2096880639) BUN (test code = 26 mg/dL 7-23 H 3536850278) GLUCOSE (test code = 124 mg/dL 70-110 H 7196916252) CREATININE (test code = 1.56 mg/dL 0.60-1.25 H 4076203818) TOTAL BILI (test code = 1.0 mg/dL 0.1-1.5 8383507772) CALCIUM (test code = 9.6 mg/dL 8.6-10.6 1730551096) T PROTEIN (test code = 7.7 g/dL 6.3-8.2 7655229795) ALBUMIN (test code = 4.6 g/dL 3.5-5.0 6953701968) ALK PHOS (test code = 82 U/L 34-122 8230903020) ALTv (test code = 48 U/L 5-50 1742-6) AST(SGOT) (test code = 53 U/L 13-40 H 3604633924) eGFR (test code = mL/min/1.73m2 4521423036) VERONIKA (test code = VERONIKA) Association of Glomerular Filtration Rate (GFR) and Staging of Kidney Disease* + --+ --+ ------+| GFR (mL/min/1.73 m2) ?| With Kidney Damage ?| ?Without Kidney Damage+ --------+ --------+ +| ?>90 ?| ?Stage one ?| ? Normal ?+ ---+ ---+ -------+| ?60-89 ?| ?Stage two ?| ? Decreased GFR ? + --+ --+ ------+| ?30-59 ?| ?Stage three ?| ? Stage three ? + --+ --+ ------+| ?15-29 ?| ?Stage four ? | ? Stage four ?+ ---+ ---+ -------+| ?<15 (or dialysis) ? ?| ?Stage five ? | ? Stage five ?+ ---+ ---+ -------+ *Each stage assumes the associated GFR level has been in effect for at least three months. ?Stages 1 to 5, with or without kidney disease, indicate chronic kidney disease. Notes: Determination of stages one and two (with eGFR >59mL/min/1.73 m2) requires estimation of kidney damage for at least three months as defined by structural or functional abnormalities of the kidney, manifested by either:Pathological abnormalities or Markers of kidney damage (including abnormalities in the composition of the blood or urine or abnormalities in imaging tests). Lab Interpretation Abnormal (test code = 84039-8) [facility] METABOLIC [id number] 07:55:25 Test Item Value Reference Range Interpretation Comments GLUCOSE (test code = See_Comment [Autom ated message] 2345-7) The system [employer] generated this result transmitted ref erence range: 70 - 99 MG/DL. The reference r jessica was not used to interpret this result as normal/abnor mal. BLOOD UREA NITROGEN See_Comment H [Automa sloane message] (test code = 3091-6) The [employer] tem which generated this result transmitted ref erence range: 8 - 23 M G/DL. The reference r jessica was not used to interpret this result as normal/abnor mal. CREATININE (test code = See_Comment H [Au tomated message] 2160-0) The system [employer] generated this result transmitted ref erence range: 0.80 - 1 .40 MG/DL. The refe rence range was not u sed to interpret this result as normal/abnor mal. EGFR AA (test code = See_Comment L [Autom ated message] 49781-5) The system [employer] generated this result transmitted ref erence range: >60 ML/MIN/1.73. Th e reference range was not used to int erpret this result as normal/abnormal . EGFR (test code = See_Comment L [Automate d message] 02072-3) The system [employer] generated this result transmitted ref erence range: >60 ML/MIN/1.73. Th e reference range was not used to int erpret this result as normal/abnormal . SODIUM (test code = See_Comment [Automa sloane message] 2951-2) The system [employer] generated this result transmitted ref erence range: 133 - 14 6 MEQ/L. The refe rence range was not u sed to interpret this result as normal/abnor mal. POTASSIUM (test code = See_Comment [Aut omated message] 2823-3) The system [employer] generated this result transmitted ref erence range: 3.5 - 5. 4 MEQ/L. The refe rence range was not u sed to interpret this result as normal/abnor mal. CHLORIDE (test code = See_Comment [Auto mated message] ) The system [employer] generated this result transmitted ref erence range: 95 - 107 MEQ/L. The reference r jessica was not used to interpret this result as normal/abnor mal. CO2 (test code = See_Comment [Automated message] 1963-05) The system [employer] generated this result transmitted ref erence range: 19 - 31 MEQ/L. The reference r jessica was not used to interpret this result as normal/abnor mal. CALCIUM (test code = See_Comment Unless 54479-0) Otherwise Indic ated, All Testing Per formed At: [facility], [address] [place] [address] 14[address] Laboratory Dire ctor: Yossi garcia M.D. CLIA Num erin [id number] Cap Accreditation N o. [id number] [Auto mated message] The sy stem which generated this result transmit sloane reference range : 8.5 - 10.5 MG/DL. The reference range was not used to int erpret this result as normal/abnormal . Lab Interpretation Abnormal (test code = 70073-9) [facility]2020-[facility]11 17:42:00 Test Item Value Reference Range Interpretation Comments SARS-CoV-2 Rapid ID NOW Not Detected Not Detected (test code = 28740-1) VERONIKA (test code = VERONIKA) ID NOW COVID-19 Assay is an isothermal nucleic acid amplification test intended for the qualitative detection of nucleic acid from SARS-CoV-2 viral RNA in nasopharyngeal (GROUP THERAPY COUNSELOR) specimens. It is used under Emergency Use Authorization (EUA) by FDA. The limit of detection (LOD) of the assay is 125 Genome Equivalents/mL. A positive result is indicative of the presence of SARS-CoV-2 RNA. ?Clinical correlation with patient history and other diagnostic information is necessary to determine patient infection status. A negative (Not Detected) result does not preclude SARS-CoV-2 infection. In patients with clinical symptoms and other tests that are consistent with SARS-CoV-2 infection, negative results should be treated as presumptive negative and a new specimen should be tested with alternative PCR molecular test. Invalid: Please collect a new specimen for repeat patient testing if clinically indicated. Lab Interpretation Normal (test code = 36476-1) [facility]2020-04-11 17:42:00 Test Item Value Reference Range Interpretation Comments SARS-CoV-2 Rapid ID NOW Not Detected Not Detected (test code = 87753-2) VERONIKA (test code = VERONIKA) ID NOW COVID-19 Assay is an isothermal nucleic acid amplification test intended for the qualitative detection of nucleic acid from SARS-CoV-2 viral RNA in nasopharyngeal (GROUP THERAPY COUNSELOR) specimens. It is used under Emergency Use Authorization (EUA) by FDA. The limit of detection (LOD) of the assay is 125 Genome Equivalents/mL. A positive result is indicative of the presence of SARS-CoV-2 RNA. ?Clinical correlation with patient history and other diagnostic information is necessary to determine patient infection status. A negative (Not Detected) result does not preclude SARS-CoV-2 infection. In patients with clinical symptoms and other tests that are consistent with SARS-CoV-2 infection, negative results should be treated as presumptive negative and a new specimen should be tested with alternative PCR molecular test. Invalid: Please collect a new specimen for repeat patient testing if clinically indicated. Lab Interpretation Normal (test code = 45952-9) [facility]ID [facility]2020-04-11 17:42:00 Test Item Value Reference Range Interpretation Comments SARS-CoV-2 Rapid ID NOW Not Detected Not Detected (test code = 68743-9) VERONIKA (test code = VERONIKA) ID NOW COVID-19 Assay is an isothermal nucleic acid amplification test intended for the qualitative detection of nucleic acid from SARS-CoV-2 viral RNA in nasopharyngeal (GROUP THERAPY COUNSELOR) specimens. It is used under Emergency Use Authorization (EUA) by FDA. The limit of detection (LOD) of the assay is 125 Genome Equivalents/mL. A positive result is indicative of the presence of SARS-CoV-2 RNA. ?Clinical correlation with patient history and other diagnostic information is necessary to determine patient infection status. A negative (Not Detected) result does not preclude SARS-CoV-2 infection. In patients with clinical symptoms and other tests that are consistent with SARS-CoV-2 infection, negative results should be treated as presumptive negative and a new specimen should be tested with alternative PCR molecular test. Invalid: Please collect a new specimen for repeat patient testing if clinically indicated. Lab Interpretation Normal (test code = 44652-7) [facility]"
[2021-12-15] MEDS ORDERED: ONDANSETRON 4 MG/2 ML VIAL ONE (20:22)
[2021-12-15] MEDS ORDERED: MORPHINE 2 MG/ML SYR ONE ×2 (20:22→23:49)
[2021-12-15 20:34] LABS: Absolute Lymphocytes (CBC) 1.3 K/uL (0.7-4.9); Hematocrit 35.6 % (39.6-49.0); Lymphocytes % 9.1 % (15.3-44.8); MPV 8.5 fL (7.6-11.3)
[2021-12-15 20:35] LABS: Protime INR 1.65
[2021-12-15 21:02] LABS: Platelet Estimate ADEQ; White Blood Cell Scan OK (OK)
[2021-12-15 21:03] LABS: Blood Morphology Comment NOT SEEN (NOT SEEN)
[2021-12-15 21:06] LABS: Albumin 3.3 g/dL (3.4-5.0); Bilirubin Direct 0.4 mg/dL (0-0.2); Bilirubin Total 0.9 mg/dL (0.2-1.0); Potassium 4.4 mmol/L (3.5-5.1); Protein, Total 7.9 g/dL (6.4-8.2)
[2021-12-15 21:08] LABS: Magnesium 1.4 mg/dL (1.8-2.4); Troponin High Sensitivity 77.7 pg/mL (<58.9)
--- NOTE | 2021-12-15 21:29 | RAD REPORT ---
EXAM DESCRIPTION: RAD - Foot Left 3 View - 12/15/2021 9:08 pm CLINICAL HISTORY: Pain;Swelling COMPARISON: Foot Left 3 View dated 05/16/2019 FINDINGS: No acute fracture. No malalignment. Moderate degenerative changes are present at the first MTP joint. Calcaneal spurring. Midfoot degenerative changes. IMPRESSION: No acute osseous abnormality involving the left foot.
--- NOTE | 2021-12-15 21:29 | RAD REPORT ---
EXAM DESCRIPTION: RAD - Foot Right 3 View - 12/15/2021 9:08 pm CLINICAL HISTORY: Pain;Swelling COMPARISON: Chest Single View dated 10/04/2021; Chest Single View dated 09/25/2021; Chest Pa And Lat (2 Views) dated 01/11/2021; Chest Single View dated 10/24/2020No comparisons FINDINGS: No acute fracture. No malalignment. Calcaneal spurring. Midfoot degenerative changes. IMPRESSION: No acute osseous abnormality involving the right foot.
--- NOTE | 2021-12-15 21:30 | RAD REPORT ---
EXAM DESCRIPTION: RAD - Chest Single View - 12/15/2021 9:08 pm CLINICAL HISTORY: SWELLING COMPARISON: Chest Single View dated 11/15/2020; Abdomen 1 View (KUB) dated 06/19/2020; Abdomen 1 View ( KUB) dated 06/18/2020; Chest Pa And Lat (2 Views) dated 10/22/2017 FINDINGS: Lines: None. Lungs: No evidence of edema or pneumonia. Pleural: No significant pleural effusions or pneumothorax. Cardiac: The heart size is within normal limits. Bones: No acute fractures. Right shoulder arthroplasty. Other: IMPRESSION: No acute cardiopulmonary disease.
--- NOTE | 2021-12-15 21:55 | RAD REPORT ---
EXAM DESCRIPTION: US - Extrem Venous W Compress Ye - 12/15/2021 9:49 pm CLINICAL HISTORY: Swelling and pain COMPARISON: None. TECHNIQUE: Real-time sonographic evaluation of the bilateral lower extremity deep venous systems was performed. FINDINGS: Normal compressibility, flow augmentation, phasic flow and spontaneous flow is identified in both the left and right lower extremity deep venous systems. No intraluminal filling defects seen. IMPRESSION: No DVT in either lower extremity.
--- NOTE | 2021-12-15 22:02 | RAD REPORT ---
EXAM DESCRIPTION: US - Lower Extremity Arterial Bilat - 12/15/2021 9:49 pm CLINICAL HISTORY: Leg pain COMPARISON: None FINDINGS: Hard plaque present within the common femoral and distal femoral arteries on the right and superficial femoral and popliteal artery on the left. In the right lower extremity, triphasic flow is present within the right common femoral artery. The S FA proximally has triphasic flow. Monophasic flow is present in the midportion secondary to a focal s tenosis. Elevated velocities are present. The popliteal artery has monophasic flow. The posterior tib ial and dorsalis pedis arteries have monophasic flow. On the left, there is triphasic flow in the common femoral artery and superficial femoral artery. At the midportion, the waveform turns to monophasic flow. The popliteal artery has monophasic flow. The posterior tibial artery and dorsalis pedis arteries have monophasic flow . 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
[2021-12-15] MEDS ORDERED: MAGNESIUM SULFATE 1 gm IVPB 1 GM/100 ML BAG IV ONE (22:19)
[2021-12-15] MEDS ORDERED: METOPROLOL TARTRATE 5 MG/5 ML INJ IV ONE (22:29)
--- NOTE | 2021-12-15 22:34 | ER ---
Nurse's Notes [facility] Name: Alpesh Alves Age: 81 yrs Sex: Male : 1940 Arrival Date: 12/15/2021 Time: 19:13 Bed 25 Private MD: Diagnosis: Atrial Fibrillation with RVR;Bilateral Foot Pain/swelling, cellulitis;Elevated troponin level;Hypomagnesemia Presentation: 12/15 19:25 Chief complaint: Patient states: bilateral feet swelling with pain started on Thursday sf1 12/13, no wounds, not a diabetic. Coronavirus screen: Vaccine status: Patient reports receiving the 2nd dose of the covid vaccine. Client denies travel out of the [place] in the last 14 days. Ebola Screen: Patient negative for fever greater than or equal to 101.5 degrees Fahrenheit, and additional compatible Ebola Virus Disease symptoms Patient denies exposure to infectious person. Patient denies travel to an Ebola-affected area in the 21 days before illness onset. Initial Sepsis Screen: Does the patient meet any 2 criteria? No. Patient's initial sepsis screen is negative. Does the patient have a suspected source of infection? No. Patient's initial sepsis screen is negative. Risk Assessment: Do you want to hurt yourself or someone else? Patient reports no desire to harm self or others. Onset of symptoms was December 13, 2021. 19:25 Method Of Arrival: Wheelchair sf1 19:25 Acuity: DEE 3 sf1 Triage Assessment: 23:55 General: Behavior is calm, cooperative, appropriate for age. 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 - Social history:: Smoking status: Patient denies any tobacco usage or history of. Patient uses alcohol, weekly. Patient/guardian denies using street drugs. Screenin:54 Abuse screen: Denies threats or abuse. Nutritional screening: No deficits noted. lr4 Tuberculosis screening: No symptoms or risk factors identified. Fall Risk None identified. Assessment: 22:00 General: Appears in no apparent distress. comfortable. Pain: Complains of pain in right lr4 foot and left foot Pain currently is 10 out of 10 on a pain scale. Neuro: No deficits noted. Cardiovascular: Heart tones S1 S2 Capillary refill < 3 seconds Pulses are all present. Rhythm is irregular. Respiratory: No deficits noted. GI: No deficits noted. Musculoskeletal: Swelling present in right foot and left foot. 23:55 Reassessment: No changes from previously documented assessment. Patient is alert, lr4 oriented x 3, equal unlabored respirations, skin warm/dry/pink. Pt to room 218 via stretcher per RN, pt in [facility], [facility], . Vital Signs: 19:25 BP 102 / 63; Pulse 101; Resp 18; Temp 99.6; Pulse Ox 93% on R/A; Weight 104.33 kg; sf1 Height 5 ft. 11 in. (180.34 cm); Pain 9/10; 21:21 BP 113 / 74; Pulse 113; Resp 20; Pulse Ox 100% on R/A; lr4 23:56 BP 126 / 94; Pulse 121; Resp 20; Pulse Ox 100% ; lr4 19:25 Body Mass Index 32.08 (104.33 kg, 180.34 cm) sf1 ED Course: 19:13 Patient arrived in ED. kc5 19:27 Triage completed. sf1 19:40 Baylee Pickett, JOE is Primary Nurse. lr4 19:42 Darinel Valdez MD is Attending Physician. mh7 20:26 Blood Culture Adult (2) Sent. ss7 20:27 NT PRO-BNP Sent. ss7 20:27 Magnesium Sent. ss7 20:27 Basic Metabolic Panel Sent. ss7 20:27 CBC with Diff Sent. ss7 20:27 LFT's Sent. ss7 20:27 Magnesium Sent. ss7 20:27 NT PRO-BNP Sent. ss7 20:27 PT-INR Sent. ss7 20:27 Troponin HS Sent. ss7 20:27 Liver (Hepatic) Function Sent. ss7 20:27 CBC with Automated Diff Sent. ss7 20:27 Basic Metabolic Panel Sent. ss7 21:08 XRAY Chest (1 view) In Process Unspecified. EDMS 21:08 Foot Left 3 View XRAY In Process Unspecified. EDMS 21:08 Foot Right 3 View XRAY In Process Unspecified. EDMS 21:09 Notified ED physician of a critical lab result(s). Troponin 77.7, Magnesium 1.4. lp1 21:49 US Extremity Venous W Compression Ye In Process Unspecified. EDMS 21:49 US Lower Extremity Arterial Bilateral In Process Unspecified. EDMS 22:03 COVID-19 SARS RT PCR (Document "Date of Onset" if Symptomatic) Sent. ss7 22:30 Sarah Mccall MD is Hospitalizing Provider. 7 23:54 Arm band placed on left wrist. lr4 23:55 No provider procedures requiring assistance completed. lr4 23:55 Patient has correct armband on for positive identification. Bed in low position. Call lr4 light in reach. Side rails up X 1. Report given to Micaela DIAZ. quality assurance monitor final on. Pulse ox on. NIBP on. Administered Medications: 20:28 Drug: morphine 2 mg Route: IVP; Site: right antecubital; ss7 20:46 Follow up: Response: No adverse reaction; Pain is decreased lr4 20:28 Drug: Zofran (Ondansetron) 2 mg Route: IVP; Site: right antecubital; ss7 20:47 Follow up: Response: No adverse reaction; Nausea is decreased lr4 22:24 Drug: Magnesium Sulfate 1 grams Route: IVPB; Infused Over: 1 hrs; Site: right lr4 antecubital; 23:44 Follow up: IV Status: Completed infusion lr4 22:37 Drug: Metoprolol 2.5 mg Route: IVP; Site: right antecubital; lr4 22:41 Follow up: Response: No adverse reaction; No change in condition lr4 23:33 Drug: Clindamycin 600 mg Route: IVPB; Infused Over: 30 mins; Site: right antecubital; lr4 23:50 Follow up: IV Status: Completed infusion lr4 23:50 Drug: morphine 2 mg Route: IVP; Site: right antecubital; lr4 23:50 Follow up: Response: No adverse reaction lr4 Outcome: 22:34 Decision to Hospitalize by Provider. [facility] 23:56 Condition: stable lr4 12/16 00:01 Patient left the ED. lr4 Signatures: Dispatcher [employer] EDMS Jodie Samayoa RN RN lp1 Darinel Valdez MD MD 7 Alexandria Amin 5 Lena Jordan RN RN sf1 Pattie Hu RN RN ss7 Baylee Pickett RN RN lr4
--- NOTE | 2021-12-15 22:34 | EDPHYS ---
Physician Documentation [facility] Name: Alpesh Alves Age: 81 yrs Sex: Male : 1940 Arrival Date: 12/15/2021 Time: 19:13 Bed 25 Private MD: ED Physician Darinel Valdez HPI: 12/15 20:25 This 81 yrs old Male presents to ER via Wheelchair with complaints of Feet Swelling. mh7 20:25 The patient presents with swelling. The complaints affect the right foot and left foot. mh7 Context: The problem was sustained at home, resulted from an unknown cause, the patient can fully bear weight, the patient is able to ambulate, with mild difficulty, Problem is a result from a previous injury: No. Onset: The symptoms/episode began/occurred 2 day(s) ago. Modifying factors: The symptoms are alleviated by elevating leg, the symptoms are aggravated by weight bearing. Associated signs and symptoms: Pertinent positives: swelling, Pertinent negatives calf tenderness, fever, nausea, numbness, rash, tingling, vomiting, warmth, weakness. Treatment prior to arrival includes: over the counter medications, Tylenol. Severity of symptoms: At their worst the symptoms were moderate, 2 day(s) ago, in the emergency department the symptoms have improved, moderately. Historical: - Allergies: 19:27 BP medication - unknown; sf1 - Home Meds: 19:27 amlodipine 5 mg tab 1 tab once daily [Active]; candesartan 8 mg Oral tab 1 tab once sf1 daily [Active]; Eliquis 2.5 mg Oral tab 1 tab 2 times per day [Active]; metoprolol tartrate 25 mg Oral tab 1 tab 2 times per day [Active]; pantoprazole 40 mg Oral TbEC 1 tab once daily [Active]; - PMHx: 19:27 Arthritis; Atrial Fib; Bladder cancer; CARPAL STEVEN. TO LEFT HAND; GERD; Hypertension; sf1 - PSHx: 19:27 knee replacement bilateral; shoulder replacement right; bladder replaced d/t bladder sf1 cancer; - Immunization history:: Flu vaccine is up to date. - Social history:: Smoking status: Patient denies any tobacco usage or history of. Patient uses alcohol, weekly. Patient/guardian denies using street drugs. ROS: 20:25 Constitutional: Negative for fever, chills, and weight loss, Eyes: Negative for injury, mh7 pain, redness, and discharge, ENT: Negative for injury, pain, and discharge, Neck: Negative for injury, pain, and swelling, Cardiovascular: Negative for chest pain, palpitations, and edema, Respiratory: Negative for shortness of breath, cough, wheezing, and pleuritic chest pain, Abdomen/GI: Negative for abdominal pain, nausea, vomiting, diarrhea, and constipation, Back: Negative for injury and pain, : Negative for injury, bleeding, discharge, and swelling, Skin: Negative for injury, rash, and discoloration, Neuro: Negative for headache, weakness, numbness, tingling, and seizure, Psych: Negative for depression, anxiety, suicide ideation, homicidal ideation, and hallucinations, Allergy/Immunology: Negative for hives, rash, and allergies, Endocrine: Negative for neck swelling, polydipsia, polyuria, polyphagia, and marked weight changes, Hematologic/Lymphatic: Negative for swollen nodes, abnormal bleeding, and unusual bruising. Exam: 20:25 Constitutional: This is a well developed, well nourished patient who is awake, alert, mh7 and in no acute distress. Head/Face: Normocephalic, atraumatic. Eyes: Pupils equal round and reactive to light, extra-ocular motions intact. Lids and lashes normal. Conjunctiva and sclera are non-icteric and not injected. Cornea within normal limits. Periorbital areas with no swelling, redness, or edema. Neck: Trachea midline, no thyromegaly or masses palpated, and no cervical lymphadenopathy. Supple, full range of motion without nuchal rigidity, or vertebral point tenderness. No Meningismus. Chest/axilla: Normal chest wall appearance and motion. Nontender with no deformity. No lesions are appreciated. Respiratory: Lungs have equal breath sounds bilaterally, clear to auscultation and percussion. No rales, rhonchi or wheezes noted. No increased work of breathing, no retractions or nasal flaring. Abdomen/GI: Soft, non-tender, with normal bowel sounds. No distension or tympany. No guarding or rebound. No evidence of tenderness throughout. Back: No spinal tenderness. No costovertebral tenderness. Full range of motion. Neuro: Awake and alert, GCS 15, oriented to person, place, time, and situation. Cranial nerves II-XII grossly intact. Motor strength 5/5 in all extremities. Sensory grossly intact. Cerebellar exam normal. Normal gait. Psych: Awake, alert, with orientation to person, place and time. Behavior, mood, and affect are within normal limits. 20:25 Cardiovascular: Rate: tachycardic, Rhythm: irregularly irregular, Pulses: no pulse mh7 deficits are appreciated, Heart sounds: normal, normal S1and S2, Edema: pedal edema, that is mild, JVD: is not appreciated. 20:25 Musculoskeletal/extremity: Extremities: noted in the right foot: erythema, swelling, mh7 tenderness, noted in the left foot: swelling, tenderness, ROM: intact in all extremities, Circulation is intact in all extremities. Sensation intact. Compartment Syndrome exam of affected extremity: is normal. no numbness, no tingling, no sensation deficit, no palor, no weak pulses, Joints: All joints appear normal with full range of motion. Weight bearing: able to fully bear weight, without difficulty, Tendon exam: specific tendon testing normal through active and passive range of motion DVT Exam: pain, that is mild, of the right foot and left foot, swelling, that is mild, of the right foot and left foot, tenderness, that is moderate, of the right foot, erythema, that is mild, of the right foot, increased warmth, that is mild, of the right foot, Calves: are non-tender, have equal circumference. 20:25 Skin: cellulitis, that is mild, on the right foot, dorsal lateral aspect. 21:30 ECG was reviewed by the Attending Physician. [facility] Vital Signs: 19:25 BP 102 / 63; Pulse 101; Resp 18; Temp 99.6; Pulse Ox 93% on R/A; Weight 104.33 kg; sf1 Height 5 ft. 11 in. (180.34 cm); Pain 9/10; 21:21 BP 113 / 74; Pulse 113; Resp 20; Pulse Ox 100% on R/A; lr4 23:56 BP 126 / 94; Pulse 121; Resp 20; Pulse Ox 100% ; lr4 19:25 Body Mass Index 32.08 (104.33 kg, 180.34 cm) 1 MDM: 22:29 Differential diagnosis: closed fracture, contusion, abrasion, tendonitis, cellulitis, mh7 DVT. Data reviewed: vital signs, nurses notes, old medical records, lab test result(s), cardiac enzymes, CBC, electrolytes, urinalysis, EKG, radiologic studies, doppler, plain films, ultrasound. Data interpreted: Pulse oximetry: on room air is 100 %. Interpretation: normal. Counseling: I had a detailed discussion with the patient and/or guardian regarding: the historical points, exam findings, and any diagnostic results supporting the discharge/admit diagnosis, lab results, radiology results, the need for further work-up and treatment in the hospital. Response to treatment: the patient's symptoms have mildly improved after treatment. 22:34 Patient medically screened. [facility] 12/15 20:12 Order name: Basic Metabolic Panel [facility] 12/15 20:12 Order name: CBC with Diff [facility] 12/15 20:12 Order name: LFT's [facility] 12/15 20:12 Order name: Magnesium [facility] 12/15 20:12 Order name: NT PRO-BNP [facility] 12/15 20:12 Order name: PT-INR; Complete Time: 21:23 [facility] 12/15 20:12 Order name: Troponin HS; Complete Time: 21:23 [facility] 12/15 20:12 Order name: Basic Metabolic Panel; Complete Time: 21:23 [facility] 12/15 20:12 Order name: CBC with Automated Diff; Complete Time: 21:23 [facility] 12/15 20:12 Order name: Liver (Hepatic) Function; Complete Time: 21:23 [facility] 12/15 20:12 Order name: Magnesium; Complete Time: 21:23 [facility] 12/15 20:12 Order name: NT PRO-BNP; Complete Time: 21:23 [facility] 12/15 20:13 Order name: Blood Culture Adult (2) [facility] 12/15 21:02 Order name: CBC Smear Scan; Complete Time: 21:23 [facility] 12/15 20:12 Order name: XRAY Chest (1 view); Complete Time: 21:34 [facility] 12/15 20:12 Order name: EKG; Complete Time: 20:13 [facility] 12/15 20:12 Order name: Cardiac monitoring; Complete Time: 20: [facility] 12/15 20:12 Order name: EKG - Nurse/Tech; Complete Time: 20:16 [facility] 12/15 20:12 Order name: Foot Left 3 View XRAY; Complete Time: 21:34 [facility] 12/15 20:12 Order name: Foot Right 3 View XRAY; Complete Time: 21:34 [facility] 12/15 20:13 Order name: US Extremity Venous W Compression Ye; Complete Time: 22:04 7 12/15 20:13 Order name: Lower Extremity Arterial Bilateral; Complete Time: 22:04 [facility] 12/15 21:53 Order name: COVID-19 SARS RT PCR (Document "Date of Onset" if Symptomatic) lp1 12/15 23:04 Order name: Urine Dipstick-Ancillary EDMS 12/15 20:12 Order name: IV Saline Lock; Complete Time: 20:27 [facility] 12/15 20:12 Order name: Labs collected and sent; Complete Time: : [facility] 12/15 20:12 Order name: O2 Per Protocol; Complete Time: : [facility] 12/15 20:12 Order name: O2 Sat Monitoring; Complete Time: : [facility] 12/15 22:09 Order name: Urine Dipstick-Ancillary (obtain specimen); Complete Time: 23:03 7 EC:30 Rate is 102 beats/min. Rhythm is irregularly irregular, A flutter. QRS [place] is Normal. mh7 QRS interval is normal. QT interval is normal. No Q waves. T waves are Normal. No ST changes noted. Clinical impression: Atrial Fibrillation and Atrial Flutter. Administered Medications: 20:28 Drug: morphine 2 mg Route: IVP; Site: right antecubital; ss7 20:46 Follow up: Response: No adverse reaction; Pain is decreased lr4 20:28 Drug: Zofran (Ondansetron) 2 mg Route: IVP; Site: right antecubital; ss7 20:47 Follow up: Response: No adverse reaction; Nausea is decreased lr4 22:24 Drug: Magnesium Sulfate 1 grams Route: IVPB; Infused Over: 1 hrs; Site: right lr4 antecubital; 23:44 Follow up: IV Status: Completed infusion lr4 22:37 Drug: Metoprolol 2.5 mg Route: IVP; Site: right antecubital; lr4 22:41 Follow up: Response: No adverse reaction; No change in condition lr4 23:33 Drug: Clindamycin 600 mg Route: IVPB; Infused Over: 30 mins; Site: right antecubital; lr4 23:50 Follow up: IV Status: Completed infusion lr4 23:50 Drug: morphine 2 mg Route: IVP; Site: right antecubital; lr4 23:50 Follow up: Response: No adverse reaction lr4 Disposition Summary: 12/15/21 22:34 Hospitalization Ordered Hospitalization Status: Inpatient Admission [facility] Provider: Sarah Mccall [facility] Location: Telemetry/MedSurg (Inpatient) [facility] Condition: Stable [facility] Problem: new [facility] Symptoms: have improved [facility] Bed/Room Type: Standard [facility] Room Assignment: 218(12/15/21 23:06) mw Diagnosis - Atrial Fibrillation with RVR [facility] - Bilateral Foot Pain/swelling, cellulitis [facility] - Elevated troponin level [facility] - Hypomagnesemia [facility] Forms: - Medication Reconciliation Form [facility] - SBAR form [facility] Signatures: Dispatcher [employer] EDMS Ngozi Irene RN RN Darinel Whitehead MD MD 7 Lena Jordan RN RN sf1 Pattie Hu RN RN 7 Baylee Pickett RN RN lr4 Elisa Pierce PA PA sb3 Corrections: (The following items were deleted from the chart) 20:48 20:14 Extrem Venous W Compression Ye+US.RAD.BRZ ordered. EDMS EDMS 20:48 20:14 Lower Extremity Arterial Bilat+US.RAD.BRZ ordered. EDMS EDMS 23:06 22:34 [facility] mw
[2021-12-15] MEDS ORDERED: CLINDAMYCIN 600MG/D5W 600 MG/50 ML BAG IV ONE (22:42)
[2021-12-15 23:04] LABS: Urine Blood 3+ (Negative); Urine Glucose Negative (Negative); Urine Protein 3+ (Negative); Urine Specific Gravity 1.025 (1.005-1.030)
--- NOTE | 2021-12-15 23:19 | P.HP ---
Certification for Inpatient Patient admitted to: Inpatient With expected LOS: >2 Midnights Patient will require the following post-hospital care: None Practitioner: I am a practitioner with admitting privileges, knowledge of patient current condition, hospital course, and medical plan of care. Services: Services provided to patient in accordance with Admission requirements found in Title 42 Section 412.3 of the Code of Federal Regulations Patient History Date of Service: 12/15/21 Primary Care Provider: Dr. Mireles Reason for admission: Elevated Troponin, Cellulitus History of Present Illness: Patient is a 81-year-old male with A. fib/flutter (on Eliquis), hypertension, and history of bladder cancer who presented to the ED with complaints of bilateral feet swelling and pain that began about 2 days ago. He is able to bear weight but it is painful. He denies this occuring in past. He denies history of CHF. He sees Dr. Garland for afib/HTN. Work-up in the ED revealed WBC 13.8, creatinine 1.78, magnesium 1.4, troponin HS 77.7, BNP 2326. Chest x-ray, extremity venous Doppler, arterial Doppler, and foot x-ray negative. EKG showed aflutter and heart rate has been in the 100-120s. Patient denies chest pain or shortness of breath. He was given morphine, Zofran, magnesium, metoprolol, and clindamycin in the ED. Blood cultures were drawn. Will admit patient for further evaluation of elevated troponin with cardiology consulting and for treatment of presumed cellulitis of feet bilaterally with IV antibiotics. Allergies No Known Allergies Allergy (Verified 05/25/12 12:39) Home medications list reviewed: Yes Home Medications: Acetaminophen [Tylenol Extra Strength] 1 tab PO Q6H PRN 06/18/20 Amlodipine [Norvasc*] 1 tab PO DAILY 06/18/20 Apixaban [Eliquis *] 1 tab PO BID 06/18/20 Candesartan Cilexetil 1 tab PO DAILY 06/18/20 Metoprolol Tartrate 1 tab PO BID 06/18/20 Pantoprazole [Protonix Tab*] 1 tab PO DAILY 06/18/20 - Past Medical/Surgical History Diabetic: No -: Afib -: HTN -: GERD -: h/o bladder cancer -: sneha-bladder -: hernia repair -: bilateral knee replacement -: R shoulder repair Psychosocial/ Personal History: Patient lives at home alone. - Family History brother -: Other (see notes) Mother -: Heart disease Father -: Heart disease - Social History Smoking Status: Never smoker Alcohol use: Yes CD- Drugs: No Caffeine use: Yes Place of Residence: Home Review of Systems 10-point ROS is otherwise unremarkable Musculoskeletal: Foot Pain (and foot swelling), As per HPI Physical Examination - Physical Exam General: Alert, In no apparent distress, Oriented x3 HEENT: Atraumatic, PERRLA, Mucous membr. moist/pink, EOMI, Sclerae nonicteric Neck: Supple, 2+ carotid pulse no bruit, No LAD, Without JVD or thyroid abnormality Respiratory: Clear to auscultation bilaterally, Normal air movement Cardiovascular: Regular rate/rhythm, Normal S1 S2 Gastrointestinal: Normal bowel sounds, No tenderness Musculoskeletal: Swelling (bilateral feet ), Tenderness, Warmth Integumentary: No rashes Neurological: Normal speech, Normal strength at 5/5 x4 extr, Normal tone, Normal affect - Studies Laboratory Data (last 24 hrs) 12/15/21 20:15: PT 19.1 H, INR 1.65 12/15/21 20:15: WBC 13.80 H, Hgb 12.1 L, Hct 35.6 L, Plt Count 250 12/15/21 20:15: Sodium 137, Potassium 4.4, BUN 30 H, Creatinine 1.78 H, Glucose 97, Magnesium 1.4 L*, Total Bilirubin 0.9, AST 22, ALT 39, Alkaline Phosphatase 67 Assessment and Plan - Problems (Diagnosis) (1) Elevated troponin Current Visit: Yes Status: Acute (2) Atrial fibrillation and flutter Current Visit: Yes Status: Chronic (3) Cellulitis of both feet Current Visit: Yes Status: Acute (4) HTN (hypertension) Current Visit: Yes Status: Chronic Qualifiers: Hypertension type: primary hypertension Qualified Code(s): I10 - Essential (primary) hypertension (5) History of bladder cancer Current Visit: No Status: Resolved - Plan -Initial HS troponin was 77.7. We will repeat q6hx2 and trend. Patient denies chest pain at this -Patient was in aflutter in the ED with heart rate ranging from 100-120. Was given metoprolol 2.5. We will continue his rate control and anticoagulation home medications and monitor for signs of increasing heart rate. Cardiology consulted -X-rays and ultrasounds were negative for possible causes of feet swelling. Presumed cellulitis. Patient was given 600 mg of clindamycin in the ED. will continue and trend WBC. Blood cultures drawn -BNP was elevated however patient denies history of CHF. Chest x-ray negative. Echo ordered for the morning and cardiology consulted DVT PPx: Eliquis Code: Full Discharge Plan: Home Plan to discharge in: Greater than 2 days - Advance Directives Does patient have a Living Will: Yes Does patient have a Durable POA for Healthcare: Yes - Code Status/Comfort Care Code Status Assessed: Yes (Full) Time Spent Managing Pts Care (In Minutes): 70
[2021-12-16] MEDS ORDERED: ACETAMINOPHEN 500 MG TAB PO PRN (00:02)
[2021-12-16] MEDS ORDERED: MELATONIN 5 MG TABLET PO PRN (00:02)
[2021-12-16] MEDS ORDERED: ONDANSETRON 4 MG/2 ML VIAL IV PRN (00:02)
[2021-12-16] MEDS ORDERED: MORPHINE 4 MG/ML SYR IV PRN (00:12)
[2021-12-16 00:23] VITALS: O2SAT 100
[2021-12-16 00:46] VITALS: BMI 4491.3
[2021-12-16 03:14] LABS: Absolute Lymphocytes (CBC) 1.6 K/uL (0.7-4.9); Hematocrit 33.3 % (39.6-49.0); Lymphocytes % 13.1 % (15.3-44.8); MPV 8.2 fL (7.6-11.3); RBC Red Blood Cell Count 3.48 M/uL (4.33-5.43)
[2021-12-16 03:37] LABS: ALT/SGPT 34 U/L (12-78); AST/SGOT 18 U/L (15-37); Albumin 2.9 g/dL (3.4-5.0); Alkaline Phosphatase 58 U/L (45-117); BUN Blood Urea Nitrogen 31 mg/dL (7-18); Bicarbonate 23 mmol/L (21-32); Bilirubin Total 0.9 mg/dL (0.2-1.0); Glucose Level 88 mg/dL (74-106); HDL Cholesterol 48 mg/dL (40-60); LDL Cholesterol, Calculated 61 (<130); Magnesium 1.6 mg/dL (1.8-2.4); NT PRO-BNP 2389 pg/mL (<450); Potassium 4.2 mmol/L (3.5-5.1); Protein, Total 7.1 g/dL (6.4-8.2); Sodium Level 136 mmol/L (136-145)
[2021-12-16 03:46] LABS: CKMB Creatine Kinase MB < 1.0 ng/mL (1.0-3.6)
[2021-12-16] MEDS ORDERED: METOPROLOL TAR 25 MG TAB PO SCH (06:00)
[2021-12-16] MEDS ORDERED: PANTOPRAZOLE 40MG TABLET PO SCH (06:30)
[2021-12-16] MEDS ORDERED: PNEUMOCOCCAL VACCINE 0.5 ML IMVAC ONE (08:00)
[2021-12-16] MEDS ORDERED: CLINDAMYCIN INJ 600 MG in NA CHLORIDE 0.9% 50 ML IV SCH ×5 (08:00→09:00)
--- NOTE | 2021-12-16 08:49 | EKG ---
Test Date: 2021-12-15 Test Time: 19:46:02 Traffic Technician: MEASUREMENT RESULTS: Intervals: Rate: 102 MO: QRSD: 90 QT: 324 QTc: 422 Halls: P: MO: QRS: 20 T: 30 INTERPRETIVE STATEMENTS: Atrial flutter with variable AV block with premature ventricular or aberrantly conducted complexes Abnormal ECG Compared to ECG 11/15/2020 12:03:41 Ventricular premature complex(es) now present Atrial fibrillation no longer present Electronically Signed On 12-16-21 08:47:41 ADVERTISING SALES CONSULTANT by Dewey Martines
[2021-12-16] MEDS ORDERED: VALSARTAN 80 MG TAB PO SCH (09:00)
[2021-12-16] MEDS ORDERED: AMLODIPINE 5 MG TAB PO SCH (09:00)
[2021-12-16] MEDS ORDERED: APIXABAN 2.5 MG TABLET PO SCH (09:00)
[2021-12-16] MEDS ORDERED: MAGNESIUM SULFATE 1 gm IVPB 1 GM/100 ML BAG IV ONE (09:00)
[2021-12-16] MEDS ORDERED: HYDROCODONE/APAP 5/325 MG TAB PO ONE (10:22)
--- NOTE | 2021-12-16 12:20 | CON ---
Date of Consultation: 12/16/2021 Reason For Consultation: Admitted to Dr. Mccall on 12/15/2021 with cellulitis, peripheral arterial disease, and edema. He also has chronic atrial fibrillation. History Of Present Illness: Mr. Alves is an 81. Has a history of AFib that is chronic. He takes El iquis and metoprolol for that. He has a history of hypertension, gastroesophageal reflux disease, bl adder cancer, degenerative joint disease. Came in with cellulitis, edema, was found to have rapid at rial fibrillation that has resolved since. Arterial Doppler showed bilateral SFA stenoses. Chest x- ray is negative. Venous Doppler negative. Troponin slightly elevated. BNP slightly elevated. Whit e count of 12, creatinine 1.74. No cardiac complaint. Allergies: HE IS ALLERGIC TO NOTHING. Review of Systems: Negative. Social History: Negative. Family History: Negative. Medications: Include Eliquis, metoprolol, valsartan, and Protonix. Physical Examination: Vital Signs: Stable, atrial fibrillation, rate of 90, afebrile. HEENT: Negative. Neck: Supple with no bruit. Chest: Clear. Cardiac: Revealed atrial fibrillation. Abdomen: Benign. Extremities: Revealed no clubbing, cyanosis, or edema. He had some mild discoloration and erythema in both feet. Pulses were present, but weak at the dorsalis pedis and posterior tibial bilaterally. Skin: Dry and intact. Neurologic: He was nonfocal. Impression And Plan: 1.Severe peripheral arterial disease in the SFA. We will discharge him today, consider courtney [address] him hold Eliquis after Thursday. Plan an angiogram with runoff of the abdomen, aorta and SFA on next week. 2.Regarding his atrial fibrillation, he is stable on metoprolol. We will continue that for now. He can take an extra metoprolol as needed. 3.Cellulitis and edema, on antibiotics. 4.Possible neuropathy. 5.Hypertension, on valsartan. 6.Gastroesophageal reflux disease, on Protonix. 7.Arthritis. 8.History of bladder cancer. NB/MODL Voice ID: [id number] Report ID: [id number]
--- NOTE | 2021-12-16 12:31 | P.DS ---
Admission Date: 12/15/21 Discharge Date: 12/16/21 Primary Care Provider: Dr. Mireles Discharge Condition: FAIR Reason for Admission: Elevated Troponin, Cellulitus Brief History of Present Illness: History of Present Illness: Patient is a 81-year-old male with A. fib/flutter (on Eliquis), hypertension, and history of bladder cancer who presented to the ED with complaints of bilateral feet swelling and pain that began about 2 days ago. He is able to bear weight but it is painful. He denies this occuring in past. He denies history of CHF. He sees Dr. Garland for afib/HTN. Work-up in the ED revealed WBC 13.8, creatinine 1.78, magnesium 1.4, troponin HS 77.7, BNP 2326. Chest x-ray, extremity venous Doppler, arterial Doppler, and foot x-ray negative. EKG showed aflutter and heart rate has been in the 100-120s. Patient denies chest pain or shortness of breath. He was given morphine, Zofran, magnesium, metoprolol, and clindamycin in the ED. Blood cultures were drawn. Will admit patient for further evaluation of elevated troponin with cardiology consulting and for treatment of presumed cellulitis of feet bilaterally with IV antibiotics. Hospital Course: Hospital course Patient admitted with bilateral lower extremity edema with intense pain. Noted to have possible reflux sympathetic dystrophy. Patient was started on Neurontin as well as Tylenol 3 for pain control. He was evaluated by cardiology and scheduled to have outpatient lower extremity angiogram. Patient will be discharged home today to follow with cardiology Dr. Jad dominguez in 3 to 5 days follow extremity angiogram. He was initially started on antibiotics but was discontinued since no evidence of cellulitis blood culture has been sent and will be followed and patient will be called back if positive blood culture Physical Examination - Physical Exam General: Alert, In no apparent distress, Oriented x3 HEENT: Atraumatic, PERRLA, Mucous membr. moist/pink, EOMI, Sclerae nonicteric Neck: Supple, 2+ carotid pulse no bruit, No LAD, Without JVD or thyroid abnormality Respiratory: Clear to auscultation bilaterally, Normal air movement Cardiovascular: Regular rate/rhythm, Normal S1 S2 Gastrointestinal: Normal bowel sounds, No tenderness Musculoskeletal: Swelling (bilateral feet ), Tenderness, Warmth Integumentary: No rashes Neurological: Normal speech, Normal strength at 5/5 x4 extr, Normal tone, Normal affect Vital Signs/Physical Exam: Temp Pulse Resp BP Pulse Ox 99.1 F 60 24 H 115/64 94 12/16/21 08:00 12/16/21 08:00 12/16/21 08:00 12/16/21 08:00 12/16/21 08:00 Laboratory Data at Discharge: WBC 12.00 K/uL (4.3-10.9) H 12/16/21 02:55 Hgb 11.0 g/dL (13.6-17.9) L 12/16/21 02:55 Hct 33.3 % (39.6-49.0) L 12/16/21 02:55 Plt Count 225 K/uL (152-406) 12/16/21 02:55 PT 19.1 SECONDS (9.5-12.5) H 12/15/21 20:15 INR 1.65 12/15/21 20:15 Sodium 136 mmol/L (136-145) 12/16/21 02:55 Potassium 4.2 mmol/L (3.5-5.1) 12/16/21 02:55 BUN 31 mg/dL (7-18) H 12/16/21 02:55 Creatinine 1.74 mg/dL (0.55-1.3) H 12/16/21 02:55 Glucose 88 mg/dL (74-106) 12/16/21 02:55 Magnesium 1.6 mg/dL (1.8-2.4) L 12/16/21 02:55 Total Bilirubin 0.9 mg/dL (0.2-1.0) 12/16/21 02:55 AST 18 U/L (15-37) 12/16/21 02:55 ALT 34 U/L (12-78) 12/16/21 02:55 Alkaline Phosphatase 58 U/L (45-117) 12/16/21 02:55 Triglycerides 73 mg/dL (<150) 12/16/21 02:55 Cholesterol 124 mg/dL (<200) 12/16/21 02:55 HDL Cholesterol 48 mg/dL (40-60) 12/16/21 02:55 Cholesterol/HDL Ratio 2.58 12/16/21 02:55 Home Medications: Amlodipine [Norvasc*] 1 tab PO DAILY 06/18/20 Apixaban [Eliquis *] 1 tab PO BID 06/18/20 Candesartan Cilexetil 1 tab PO DAILY 06/18/20 Metoprolol Tartrate 1 tab PO BID 06/18/20 Pantoprazole [Protonix Tab*] 1 tab PO DAILY 06/18/20 Codeine/APAP [Tylenol W/Codeine #3 tab] 1 tab PO Q8H PRN #20 tab 12/16/21 Gabapentin [Neurontin*] 100 mg PO TID #30 cap 12/16/21 Hydrocodone 5/APAP 325 [[place] 5/325] 1 tab PO Q8H PRN #30 tab 12/16/21 New Medications: Gabapentin [Neurontin*] 100 mg PO TID #30 cap Hydrocodone 5/APAP 325 [[place] 5/325] 1 tab PO Q8H PRN #30 tab PRN Reason: Pain Codeine/APAP [Tylenol W/Codeine #3 tab] 1 tab PO Q8H PRN #20 tab PRN Reason: Pain Diet: Low sodium Activity: Ad catherine Followup: NONE,NONE [Primary Care Provider] - 1 Week (Bobbi ) Time spent managing pt's care (in minutes): 35
[2021-12-16 13:01] VITALS: BP 128/69; TEMP 99
--- NOTE | 2021-12-17 07:12 | ECHO ---
HEIGHT: 0 ft 6 in WEIGHT: 230 lb 0 oz DATE OF STUDY: 12/16/[address]: Elisa Pierce 2-DIMENSIONAL: YES M.MODE: YES DOPPLER: YES COLOR FLOW: YES TDS: NO PORTABLE: NO DEFINITY: NO BUBBLE STUDY: NO DIAGNOSIS: CONGESTIVE HEART FAILURE CARDIAC HISTORY: CATHERIZATION: SURGERY: PROSTHETIC VALVE: PACEMAKER: MEASUREMENTS (cm) DIASTOLIC (NORMALS) SYSTOLIC (NORMALS) IVSd 1.3 (0.6-1.2) LA Diam 3.8 (1.9-4.0) LVEF 55% LVIDd 3.7 (3.5-5.7) LVIDs 2.7 (2.0-3.5) %FS 28% LVPWd 1.3 (0.6-1.2) Ao Diam 3.0 (2.0-3.7) 2 DIMENSIONAL ASSESSMENT: RIGHT ATRIUM: NORMAL LEFT ATRIUM: NORMAL RIGHT VENTRICLE: NORMAL LEFT VENTRICLE: NORMAL TRICUSPID VALVE: NORMAL MITRAL VALVE: MITRAL REGURGITATION PULMONIC VALVE: NORMAL AORTIC VALVE: MILD AORTIC REGURGITATION PERICARDIAL EFFUSION: NONE AORTIC ROOT: NORMAL LEFT VENTRICULAR WALL MOTION: NORMAL. DOPPLER/COLOR FLOW: SEE BELOW. COMMENTS: NORMAL LEFT VENTRICULAR EJECTION FRACTION 55-60%. MILD MITRAL REGURGITATION, MILD AORTIC REGURGITATION, MILD TRICUSPID REGURGITATION. NORMAL WALL MOTION. TECHNOLOGIST: ARABELLA WALKER
== END 2021-12-16 14:09 | disposition home or self-care (01) ==
LOC: ER 19:12 → ERHOLD 22:52 → INTOOBSV 22:52 → 2ND 23:47
PROVIDERS: ADMIT Internal Medicine; ATTEND Internal Medicine
DX: M79.89 Other specified soft tissue disorders (principal); R77.8 Other specified abnormalities of plasma proteins; I10 Essential (primary) hypertension; I48.20 Chronic atrial fibrillation, unspecified; I73.9 Peripheral vascular disease, unspecified; K21.9 Gastro-esophageal reflux disease without esophagitis; Z96.653 Presence of artificial knee joint, bilateral; Z79.01 Long term (current) use of anticoagulants; Z85.51 Personal history of malignant neoplasm of bladder; Z20.822 Contact with and (suspected) exposure to COVID-19
CPT/HCPCS: 96365; 93005; 93306; 87040 ×2; 85025 ×2; 80048; 36415; 83735 ×2; 85610; 80061; 80076; 84443; 81003; 84484 ×3; 82553; 84439; 80053; 83880 ×2; 71045; 73630 ×2; 93925; 93970; 96375; 99284; U0003; J3475 ×2; J2270 ×2; J2405; G0378 ×2

== ENCOUNTER 2021-12-23 07:25 | Day surgery (SDC) | payer OTHER, MEDICARE ==
[2021-12-20 09:41] VITALS: BMI 31.1
[2021-12-23] MEDS ORDERED: HEPA 1000U/500MLS 1,000 UNIT/500 ML BAG IV ONE (07:39)
[2021-12-23] MEDS ORDERED: ATROPINE SULF 1 MG/10 ML SYR IV ONE (07:39)
[2021-12-23] MEDS ORDERED: MIDAZOLAM HCL 2 MG/2 ML INJ ONE ×2 (07:39→08:00)
[2021-12-23] MEDS ORDERED: FENTANYL CITR 100 MCG/2 ML ONE ×2 (07:39→10:18)
[2021-12-23] MEDS ORDERED: NA CHLORIDE 0.9% 500 ML ONE (07:40)
[2021-12-23] MEDS ORDERED: ACETAMINOPHEN 325 MG TABLET ONE (09:34)
--- NOTE | 2021-12-23 11:09 | OP ---
Date of Procedure: 12/23/2021 Surgeon: Dewey Martines MD Correctional Cook: Aziza Galicia. The patient had a [employer] in the right groin, which failed, so pressure was held using a free clamp and manual pressure for hemostasis. He will remain in the hospital for about 6 hours before he goes home. I will see him in the office in 2 weeks. Procedure: Abdominal angiogram with runoff. Indication: Peripheral arterial disease and claudication. Procedure In Detail: Mr. Alves is 81. Was admitted to the general production lab[facility] today as an outpatient, prepped and draped in the routine sterile fashion. Given Versed and fentanyl for sedation. A 6-Portuguese sheat h introduced in the right common femoral artery successfully. Angiography there was normal. Abdomin al angiogram with runoff was done after introducing a 6-Portuguese pigtail catheter above the renals. Ab dominal angiogram with runoff showed normal aorta, normal renals, normal iliacs. The SFA had diffuse disease and plaquing. He was found to have severe peripheral disease below the knee with complete o cclusion of the anterior tibial on the left side and diffuse disease in the posterior, tibial and per mosley bilaterally. The patient tolerated the procedure well. There were no complications. Anesthesia: Total conscious sedation was 30 minutes. Final Diagnosis: Severe peripheral arterial disease distally. The patient is on anticoagulant, Eliquis. I think we will probably add Trental to his regimen before treatment with medication and see how he does. TING/KARMEN Voice ID: [id number] Report ID: [id number]
[2021-12-23 13:06] VITALS: O2SAT 94
[2021-12-23 14:02] VITALS: BP 141/66
== END 2021-12-23 15:05 | disposition home or self-care (01) ==
LOC: CCL 07:25
DX: I70.213 Atherosclerosis of native arteries of extremities with intermittent claudication, bilateral legs (principal); I70.92 Chronic total occlusion of artery of the extremities; L03.119 Cellulitis of unspecified part of limb; I67.9 Cerebrovascular disease, unspecified; I48.91 Unspecified atrial fibrillation; I10 Essential (primary) hypertension; Z20.822 Contact with and (suspected) exposure to COVID-19
CPT/HCPCS: 36415; 85730; 36200; 75630; 36245; U0003; C1893; C1887; C1769; J2250; J3010 ×2; J7040; J1644

== ENCOUNTER 2022-11-06 09:41 | Emergency (ER) | payer OTHER, MEDICARE ==
--- OUTSIDE RECORDS SUMMARY | 2022-11-06 09:46 | XMS REPORT | Continuity of Care Document ---
:1940 Author Organization [facility] t Address [address] [place] [address] Care Team Providers Name Role Phone Lalo Mireles MD Primary Care Physician [phone] PITER WEBSTER Attending Clinician Unavailable Ben Mcgrath Attending Clinician ARNOLD PRASAD Attending Clinician Unavailable ANJUM GUNTER Attending Clinician Unavailable Therapy, [facility] Infusion Attending Clinician Unavailable Armaan Polo MD Attending Clinician ARMAAN POLO Attending Clinician Unavailable Doctor Unassigned, [place] Attending Clinician Unavailable GRETEL HUERTA Attending Clinician Unavailable Gretel Huerta DO Attending Clinician GUSTAVO RICHARDS Attending Clinician Unavailable Gustavo Richards MD Attending Clinician WANDY MART Attending Clinician Unavailable Joy FELIX, Anjum Munoz Attending Clinician Arnold Fong Attending Clinician Unavailable Only, Adc Test Attending Clinician Unavailable Ruth FELIX, Binh Attending Clinician BINH SCHUMACHER Attending Clinician Unavailable Piter Webster MD Attending Clinician Pineda Cee MD Attending Clinician PINEDA CEE Attending Clinician Unavailable PITER WEBSTER Admitting Clinician Unavailable GRETEL HUERTA Admitting Clinician Unavailable Piter Webster MD Admitting Clinician Payers Payer Name Policy Type Policy Number Effective Date Expiration Date S vin MEDICARE PART A \\T\\ [id number] 2004 B 00:00:00 [facility] [id number] 2015 MEDICARE SUPPLEMENT 00:00:00 MEDICARE PART A \\T\\ [id number] 2014 B - MEDICARE 00:00:00 [facility] MEDICARE [id number] 2004 SUPPLEMENT PLAN - 00:00:00 [facility] Problems Condition Condition Condition Status Onset Resolution Last Treating Co mments Source Name Details Category Date Date Treatment Clinician Date SBO (small SBO (small Disease Active B [facility] bowel bowel 04-12 [place] obstructio obstructio 00:00: of n) n) 00 [facility] e 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 00:00: of ion ion 00 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 07-17 [employer] [facility]lege sm sm 00:00: of 00 Medicin e Prostate Prostate Disease Active [facility] r cancer cancer 07-17 [place] (HCCode) (HCCode) 00:00: of 00 Medicin e Personal Personal Disease Active [facility] history of history of 8-30 Co llege colonic colonic 00:00: of polyps polyps 00 Medicin e GERD GERD Disease Active [facility] (gastroeso (gastroeso 8-30 Co llege phageal phageal 00:00: of reflux reflux 00 Medicin disease) disease) e B12 B12 Disease Active 2010-10 [facility] deficiency deficiency 1 Co llege 00:00: of 00 Medicin e Constipati Constipati Disease Active 2010-10 [facility] on on 0-06 College 00:00: of 00 Medicin e SHIMON SHIMON Disease Active 2010-10 [facility] (stress (stress 0 [place] urinary urinary 00:00: of incontinen incontinen 00 Me dicin ce), male ce), male e Other Other Disease Active [facility] 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 [employer] hypofuncti hypofuncti 00:00: of on on Medicin e Sleep Sleep Disease Active [facility] apnea apnea 01-07 College 00:00: of 00 Medicin e Diarrhea Diarrhea Disease Active [facility] 00:00: of 00 Medicin e Hypogonadi Hypogonadi Disease Active [facility]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 07-09 College 00:00: of 00 Medicin e Abdominal Abdominal Disease Active [facility] pain, pain, 07-09 College unspecifie unspecifie 00:00: of d site d site 00 Medicin e Malignant Malignant Disease Active [facility] neoplasm neoplasm 112 Colleg e of bladder of bladder 00:00: of 00 Medicin e Erectile Erectile Disease Active [facility] r dysfunctio dysfunctio 1-12 Co llege n n 00:00: of 00 Medicin e Atrial Atrial Problem Active 2022-06-14 Shane robin fibrillati fibrillati 04:06:47 l on on [place] (disorder) (disorder) Active Problem 06/14/2022 [facility] Cough Cough Problem Active 2022-06-14 Memor ia (finding) (finding) 04:06:47 l Active Ti Problem 06/14/2022 [facility] Foot pain Foot pain Problem Active 2022-06-14 Memoria (finding) (finding) 04:06:47 l Active [place] Problem 06/14/2022 [facility] Hypertensi Hypertens Problem Active 2022-06-14 Memoria ve [place] 04:06:47 l disorder, disorder, [place] [facility] systemic systemic arterial arterial (disorder) (disorder) Active Problem 06/14/2022 [facility] Paresthesi Paresthes Problem Active 2022-06-14 Memoria a ia 04:06:47 l (finding) (finding) [facility] Active Problem 06/14/2022 [facility] Peripheral Periphera Problem Active 2022-06-14 Memoria nerve l nerve 04:06:47 l disease disease Ti (disorder) (disorder) Active Problem 06/14/2022 [facility] Arthritis Problem Active 2022-06-14 Me moria (disorder) Arthritis 04:06:47 l (disorder) Jimi n Active Problem 06/14/2022 [facility] Allergies, Adverse Reactions, Alerts Allergy Allergy Status Severity Reaction(s) Onset Inactive Treating Comm ents Source Name Type Date Date Clinician No Known DA Active U [facility] [place] [facility] 00:[facility] No Known DA Active U 2013-10 [facility] 12-04 [place] All[facility] 00:00: Orthope s 00 [facility] No Known DA Active U [facility] 06-19 [place] nces 00:00: Orthope 00 dic [facility]ospita [facility] No Known DA Active U 2008- [facility] 06-19 [place] nces 00:00: Orthope 00 dic Hospita l NO KNOWN Drug Active [facility] ALLERGIE [facility] [place] [facility] Social History Social Habit Start Date Stop Date Quantity Comments Source Exposure to Not sure [facility] SARS-CoV-2 [place] [facility] (event) Branch History SDOH [facility] Alcohol Frequency Medical Center History SDOH [facility] Alcohol Std Medical Cente r Drinks History SDOH [facility] Alcohol Binge Medical [address] Cigarettes smoked 2022-05-15 2022-05-15 [facility] of current (pack per 00:00:00 00:00:00 Medicin e day) - Reported Cigarette 2022-05-15 2022-05-15 [facility] of pack-years 00:00:00 00:00:00 Medicine Social History 2022-01-03 2022-01-03 [facility] Nany lisbeth 14:53:27 14:53:27 Alcohol intake 2016-02-18 2016-02-18 [facility]finding) [facility] Center Alcohol Comment 2016-02-15 2016-02-[address] [facility] 00:00:00 00:00:00 [facility] Tobacco use and 2016-02-15 2016-02-[address] [facility] [facility] exposure 00:00:00 00:00:00 [facility] Tobacco Comment 2016-02-15 2016-02-15 QUIT SMOKING [address] [facility] 00:00:00 00:00:[address] [facility] History of 1975-10-19 Cigarette Smoker [facility] linage of tobacco use 00:00:00 Medicine Sex Assigned At [address] [facility] 00:00:00 00:00:00 [facility] Smoking Status Start Date Stop Date Source Ex-smoker 2022-05-15 00:00:00 2022-05-15 00:00:00 [facility] toribio of Medicine Medications Ordered Filled Start Stop Current Ordering Indication Dosage Frequency Signature Comments Components Source Medication Medication Date Date Medication? Clinician (SIG) Name Name allopurinol Yes TAKE 1 Shane robin 100 mg oral 8-24 TABLET BY l tablet 15:10: MOUTH ONCE Tiana nn 00 DAILY FOR 10 DAYS , THEN TAKE 2 TABLETS BY MOUTH ONCE DAILY CANDESARTAN 2021- No 1{tbl} Take 1 B [facility]ylor CILEXETIL 8-02 08-02 Tablet by Ruth ege OR 10:40: 00:00 mouth of 51 :00 daily. Medicin e candesartan Yes TAKE 1 [facility] (ATACAND) 8 7-29 TABLET BY Col lege MG tablet 00:00: MOUTH ONCE of 00 DAILY IN Medicin THE e EVENING CANDESARTAN Yes 1{tbl} Take 1 Ba ylor CILEXETIL 7-28 Tablet by Celina ge OR 10:22: mouth of 04 daily. Medicin e allopurinol Yes Christ (ZYLOPRIM) 7-27 College 100 MG 00:00: of tablet 00 Medicin e allopurinol 2021- Yes [facility] (ZYLOPRIM) 7-27 College 100 MG 00:00: of tablet 00 Medicin e ciprofloxac Yes TAKE 1 [facility] in (CIPRO) 7-18 TABLET BY Ruth ege 500 MG 00:00: MOUTH of tablet 00 TWICE Medicin DAILY e tramadol Yes TAKE 1 [facility] (ULTRAM) 50 7-18 TABLET BY Col lege MG tablet 00:00: MOUTH of 00 THREE Medicin TIMES e DAILY ciprofloxac Yes TAKE 1 [facility] in (CIPRO) 7-18 TABLET BY Ruth ege 500 MG 00:00: MOUTH of tablet 00 TWICE Medicin DAILY e tramadol Yes TAKE 1 [facility] (ULTRAM) 50 7-18 TABLET BY Col lege MG tablet 00:00: MOUTH of 00 THREE Medicin TIMES e DAILY famotidine Yes TAKE 1 [facility] (PEPCID) 20 6-28 TABLET BY Col lege MG tablet 00:00: MOUTH ONCE of 00 DAILY Medicin e famotidine Yes TAKE 1 [facility] (PEPCID) 20 6-28 TABLET BY Col lege MG tablet 00:00: MOUTH ONCE of 00 DAILY Medicin e Nebivolol Yes TAKE 1 [facility] HCl 5 MG 6-22 TABLET BY Colleg e TABS 00:00: MOUTH ONCE of 00 DAILY Medicin (STOP e METOPROLOL ) Nebivolol Yes TAKE 1 [facility] HCl 5 MG 6-22 TABLET BY Colleg e TABS 00:00: MOUTH ONCE of 00 DAILY Medicin (STOP e METOPROLOL ) gabapentin Yes TAKE 1/2 [place] [facility] (NEURONTIN) 6-06 TO 1 College 600 MG 00:00: (ONE-HALF of tablet 00 TO ONE) Medicin TABLET BY e MOUTH AT BEDTIME NEEDED gabapentin Yes TAKE 1/2 [place] [facility] (NEURONTIN) 6-06 TO 1 College 600 MG 00:00: (ONE-HALF of tablet 00 TO ONE) Medicin TABLET BY e MOUTH AT BEDTIME NEEDED apixaban Yes TAKE 1 Memoria 2.5 MG Oral 3-18 TABLET BY l Tablet 15:12: MOUTH Ti [Eliquis] 00 TWICE DAILY Nebivolol Yes TAKE 1 Memori a 10 mg oral 3-18 TABLET BY l tablet 15:12: MOUTH ONCE Tiana nn 00 DAILY (STOP METOPROLOL ) amLODIPine Yes TAKE 1 Memor ia 5 mg oral 3-18 TABLET BY l tablet 15:12: MOUTH ONCE Tiana nn 00 DAILY candesartan Yes TAKE 1 Shane robin 8 mg oral 3-18 TABLET BY l tablet 15:12: MOUTH ONCE Tiana nn 00 DAILY IN THE EVENING gabapentin Yes TAKE 1 TO Me moria 100 MG Oral 3-18 2 CAPSULES l Capsule 15:12: BY MOUTH Jimi n 00 TWICE DAILY NEEDED OR IN THE EVENING OR AT BEDTIME Cholecalcif Yes TAKE 1 Shane robin amada 43443 3-18 CAPSULE BY l UNT Oral 15:12: MOUTH ONCE Her valdes Capsule 00 A WEEK (DO [Decara] NOT USE ANY OTC VITAMIN OTC SUPPLEMENT S) casirivimab 2020- No [id number] 1200mg 1,200 mg, Univers -imdevimab 06-13 IV ity of 1200 mg in 22:30: 21:49 Infusion, [place] 60 mL NS 00 :00 ONCE, Medical MINI-BAG Administer Branc h over 20 Minutes, Celena 06/13/21 at 1730, For 1 dose
Ad trestleman as an IV infusion via pump or gravity through an intravenou s line containing a sterile, in-line or add-on 0.2-micron polyethers ulfone (PES) filter. Stable 36 hours refrigerat ed; 4 hours at room temperatur e.
casirivimab 2020- No [id number] 1200mg 1,200 mg, Univers -imdevimab 06-13 IV ity of 1200 mg in 22:30: 21:49 Infusion, [place] 60 mL NS 00 :00 ONCE, Medical MINI-BAG Administer Branc h over 20 Minutes, Celena 06/13/21 at 1730, For 1 dose
Ad trestleman as an IV infusion via pump or gravity through an intravenou s line containing a sterile, in-line or add-on 0.2-micron polyethers ulfone (PES) filter. Stable 36 hours refrigerat ed; 4 hours at room temperatur e.
CANDESARTAN Yes 1{tbl} Take 1 Ba ylor CILEXETIL 6-24 Tablet by Colle ge OR 12:33: mouth of 33 daily. Medicin e Apixaban 2020- No 2.5mg Take 2.5 [place] [facility] 2.5 MG TABS 6-24 06-24 mg by Colleg e 12:33: 00:00 mouth two of 23 :00 times Medicin daily. e DECARA 625 0 Yes 1{tbl} Take 1 [place] rohit MCG (28733 5-03 Tablet by [facility]) CAPS 00:00: mouth of 00 every 7 Medicin days. e DECARA 625 0 Yes 1{tbl} Take 1 [place] rohit MCG (81385 5-03 Tablet by [facility]) CAPS 00:00: mouth of 00 every 7 Medicin days. e DECARA 625 Yes 1{tbl} Take 1 [place] rohit MCG (21698 5-03 Tablet by [facility]) CAPS 00:00: mouth of 00 every 7 Medicin days. e Apixaban 2020-0 Yes 1{tbl} 1 Tablet. Ba ylor 2.5 MG TABS 8-31 [place] 00:00: of 00 Medicin e Apixaban 2020-0 Yes 1{tbl} 1 Tablet. Ba ylor 2.5 MG TABS 8-31 [place] 00:00: of 00 Medicin e Apixaban 2020-0 Yes 1{tbl} 1 Tablet. Ba ylor 2.5 MG TABS 8-31 [place] 00:00: of 00 Medicin e metoprolol 2020-0 Yes 25mg Take 25 mg U nivers succinate 6-25 by mouth 2 ity of XL 25 mg 24 16:18: (two) [place] hr tablet 35 times Medical daily. Branch pantoprazol 2020-0 Yes 40mg Take 40 mg Univers e 6-25 by mouth ity of (PROTONIX) 16:18: daily. [place] 40 mg EC 35 Medical tablet Branch amLODIPine 2020-0 Yes 5mg Take 5 mg Un leonard 2.5 mg 6-25 by mouth ity of tablet 16:18: daily. [place] 35 Medical Branch apixaban 2020-0 Yes 5mg [...] by mouth ity of tablet 16:18: daily. [place] [address] Medical Branch apixaban 2020-0 Yes 5mg Take [...] by mouth ity of tablet 16:18: daily. [place] [address] Medical Branch apixaban 2020-0 Yes 5mg Take [...] by mouth ity of tablet 16:18: daily. [place] [address] Medical Branch apixaban 2020-0 Yes 5mg Take [...] by mouth ity of tablet 16:18: daily. [place] [address] Medical Branch apixaban 2020-0 Yes 5mg Take [...] by mouth ity of tablet 16:18: daily. [address] Branch apixaban 2020-0 Yes 5mg Take [...] by mouth ity of (PROTONIX) 16:18: daily. [place] 40 mg EC 35 Medical tablet Branch amLODIPine 2020-0 Yes 5mg Take 5 mg Un leonard 2.5 mg 6-25 by mouth ity of tablet 16:18: daily. [place] [address] Medical Branch apixaban 2020-0 Yes 5mg Take [...] by mouth ity of tablet 11:18: daily. [place] 35 Medical Branch apixaban 2020-0 [...] by mouth ity of tablet 11:18: daily. [place] [address] Medical Branch apixaban 2020-0 Yes 5mg Take [...] by mouth ity of tablet 11:18: daily. [place] [address] Medical Branch apixaban 2020-0 Yes 5mg Take [...] by mouth ity of tablet 19:22: daily. [place] [address] Medical Branch apixaban 2020-0 Yes 5mg Take [...] by mouth ity of tablet 19:22: daily. [address] Branch apixaban 2020-0 Yes 5mg Take [...] by mouth ity of (PROTONIX) 19:22: daily. [place] 40 mg EC 46 Medical tablet Branch amLODIPine 2020-0 Yes 5mg Take 5 mg Un leonard 2.5 mg 6-23 by mouth ity of tablet 19:22: daily. [address] Branch apixaban 2020-0 Yes 5mg Take [...] by mouth ity of (PROTONIX) 19:22: daily. [place] 40 mg EC 46 Medical tablet Branch amLODIPine 2020-0 Yes 5mg Take 5 mg Un leonard 2.5 mg 6-23 by mouth ity of tablet 19:22: daily. [address] Branch pantoprazol 2020-0 Yes 40mg Take 40 mg [facility] e 6-16 by mouth College (PROTONIX) 00:00: daily. of 40 MG 00 Medicin tablet e amlodipine 2020-0 Yes 5mg Take 5 mg [facility] (NORVASC) 5 6-16 by mouth Ruth ege MG tablet 00:00: daily. of 00 Medicin e pantoprazol 2020-0 Yes 40mg Take 40 mg [facility] e 6-16 by mouth College (PROTONIX) 00:00: daily. of 40 MG 00 Medicin tablet e amlodipine 2020-0 Yes 5mg Take 5 mg [facility] (NORVASC) 5 6-16 by mouth Ruth ege MG tablet 00:00: daily. of 00 Medicin e pantoprazol 2019-0 Yes 40mg Take 40 mg [...] times of tablet 00 daily. Medicin e metoprolol 2019-2021- No 25mg Take 25 mg [facility] (LOPRESSOR) 5-26 07-28 by mouth Col lege 25 MG 00:00: 00:00 two times of tablet 00 :00 daily. Medicin e apixaban 2015-0 Yes 5mg Q.5D Take [address] (ELIQUIS) 5 5-02 by mouth 2 [facility]es mg Tab 11:54: (two) Medical tablet 04 times Center daily. lansoprazol 2016-0 Yes 30mg QD Take [address] e 5-02 by mouth [facility] (PREVACID) 11:54: daily. Medic al 30 MG 04 Center capsule famotidine 0 Yes 20mg Take [address] (PEPCID) 20 5-02 by mouth Luke s MG tablet 11:54: as needed Med ical 04 . Center apixaban 0 Yes 5mg Q.5D Take [address] (ELIQUIS) 5 5-02 by mouth 2 Gay kes mg Tab 11:54: (two) Medical tablet 04 times Center daily. lansoprazol 2016-0 Yes 30mg QD Take [address] e 5-02 by mouth [facility] (PREVACID) 11:54: daily. Medic al 30 MG 04 [place] capsule famotidine 0 Yes 20mg Take [address] (PEPCID) 20 5-02 by mouth Luke s MG tablet 11:54: as needed Med ical 04 . Center Immunizations Ordered Filled Immunization Date Status Comments [facility] e Immunization Name Name CHAD 2022-03-20 Completed University o f 00:00:00 [facility] BEBTELOVIMAB 2022-03-20 Completed University o f 00:00:00 [facility] [id number] 2020-12-01 Completed Memor iaandre [id number] 22:24:28 ER<sup>1, 2</sup> [id number] 2020-11-10 Completed Memor iaandre [id number] 22:48:00 ER Influenza Hd 2020-06-28 Completed [facility] Colle ge of 00:00:00 Medicine Influenza Hd 2019-12-16 Completed [facility] ge of 00:00:00 Medicine Zoster Recombinant 2019-04-01 Completed [facility] of 00:00:00 Medicine Zoster Recombinant 2018-12-31 Completed [facility] of 00:00:00 Medicine Influenza Hd 2012-11-01 Completed [facility] Colle ge of 00:00:00 Medicine Vital Signs Vital Name Observation Time Observation Value Comments Source Body height 2022-05-20 15:39:00 180.3 cm [facility] Body weight 2022-05-20 15:39:00 97.523 kg [facility] BMI 2022-05-20 15:39:00 29.99 kg/m2 [facility] Systolic blood 2022-05-15 15:15:00 125 mm[Hg] [facility] Medicine Diastolic blood 2022-05-15 15:15:00 83 mm[Hg] [facility] Medicine Heart rate 2022-05-15 15:15:00 125 /min [facility] Respiratory rate 2022-05-15 15:15:00 16 /min [facility] Body height 2022-05-15 15:15:00 180.3 cm [facility] Body weight 2022-05-15 15:15:00 99.338 kg [facility] BMI 2022-05-15 15:15:00 30.54 kg/m2 [facility] Systolic blood 2022-03-20 22:26:00 153 mm[Hg] [facility] [place] Diastolic blood 2022-03-20 22:26:00 82 mm[Hg] Unive rsity of pressure [place] [facility] Heart rate 2022-03-20 22:26:00 76 /min [facility] [place] [facility] Body temperature 2022-03-20 22:26:00 36.39 Stephany Univ ersity [facility] [place] [facility] Respiratory rate 2022-03-20 22:26:00 16 /min Univ ers[facility] [place] [facility] Oxygen saturation in 2022-03-20 22:26:00 98 /min University of Arterial blood by [facility] elizabeth Pulse oximetry Branch Body height 2022-03-20 21:15:00 180.3 cm [facility] [place] [facility] Body weight 2022-03-20 21:15:00 102.059 kg [facility] [place] [facility] BMI 2022-03-20 21:15:00 31.38 kg/m2 [facility] [place] [facility] Systolic blood 2021-12-14 18:00:00 126 mm[Hg] Univer sity of pressure [place] [facility] Diastolic blood 2021-12-14 18:00:00 89 mm[Hg] Unive rsity of pressure [place] [facility] Heart rate 2021-12-14 18:00:00 84 /min [facility] [place] [facility] Respiratory rate 2021-12-14 18:00:00 20 /min Univ ersity [facility] [place] [facility] Oxygen saturation in 2021-12-14 18:00:00 95 /min University of Arterial blood by [facility] elizabeth Pulse oximetry Branch Body temperature 2021-12-14 17:24:26 36 Stephany Univ [facility] [place] [facility] Body height 2021-12-14 17:13:00 185.4 cm [facility] [place] [facility] Body weight 2021-12-14 17:13:00 108.863 kg [facility] [place] [facility] BMI 2021-12-14 17:13:00 31.66 kg/m2 [facility] [place] [facility] Systolic blood 2021-06-13 21:28:00 102 mm[Hg] Univer sity of pressure [place] [facility] Diastolic blood 2021-06-13 21:28:00 65 mm[Hg] Unive rsity of pressure [place] [facility] Heart rate 2021-06-13 21:28:00 95 /min [facility] [place] [facility] Body temperature 2021-06-13 21:28:00 37 Stephany Univ [facility] [place] [facility] Respiratory rate 2021-06-13 21:28:00 24 /min Univ [facility] [place] [facility] Body height 2021-06-13 21:28:00 182.9 cm [facility] [place] [facility] Body weight 2021-06-13 21:28:00 106.595 kg [facility] [place] [facility] BMI 2021-06-13 21:28:00 31.87 kg/m2 Universi ty of [facility] Branch Oxygen saturation in 2021-06-13 21:28:00 93 /min University of Arterial blood by [place] [facility] Pulse oximetry Branch Systolic blood 2021-04-11 17:33:00 154 mm[Hg] [facility] Medicine Diastolic blood 2021-04-11 17:33:00 82 mm[Hg] [facility] Medicine Heart rate 2021-04-11 17:33:00 94 /min [facility] height 2021-04-11 17:33:00 [facility]9 [facility] Body weight 2021-04-11 17:33:00 106.595 [facility] BMI 2021-04-11 17:33:00 31.87 kg/m2 [facility] Systolic blood 2020-04-12 16:10:00 135 mm[Hg] Univer sity of pressure [place] [facility] [place] Diastolic blood 2020-04-12 16:10:00 74 mm[Hg] Unive rsity of pressure [facility] Heart rate 2020-04-12 16:10:00 63 /min [facility] [place] [facility] Body temperature 2020-04-12 16:10:00 36.44 Stephany Univ [facility] [place] [facility] Respiratory rate 2020-04-12 16:10:00 21 /min Univ [facility] [place] [facility] Oxygen saturation in 2020-04-12 16:10:00 97 /min University of Arterial blood by [place] Quid [facility] Pulse oximetry Branch Body height 2020-04-10 19:15:00 180.3 cm [facility] [place] [facility] Body weight 2020-04-10 19:15:00 106.142 kg [facility] [place] [facility] BMI 2020-04-10 19:15:00 32.64 kg/m2 [facility] Systolic blood 2020-04-12 16:10:00 135 mm[Hg] Univer sity of pressure [facility] Diastolic blood 2020-04-12 16:10:00 74 mm[Hg] Unive rsity of pressure [facility] Heart rate 2020-04-12 16:10:00 63 /min [facility] Body temperature 2020-04-12 16:10:00 36.44 Stephany [facility] Respiratory rate 2020-04-12 16:10:00 21 /min [facility] Oxygen saturation in 2020-04-12 16:10:00 97 /min [facility] Arterial blood by [facility] Pulse oximetry [place] Body height 2020-04-10 19:15:00 180.3 cm [facility] Body weight 2020-04-10 19:15:00 106.142 kg [facility] BMI 2020-04-10 19:15:00 32.64 kg/m2 [facility] Systolic (mm Hg) 2022-06-11 14:50:00 Shane rial Ti Diastolic (mm Hg) 2022-06-11 14:50:00 Mem orial [place] Respitory Rate 2022-06-11 14:50:00 Memori al Ti Height 2022-06-11 14:50:00 180.34 cm [facility] [place] Weight 2022-06-11 14:50[facility] 2022-06-11 14:50:00 Memori al Ti Systolic (mm Hg) 2022-01-28 13:14:00 Shane rial [place] Diastolic (mm Hg) 2022-01-28 13:14:00 Mem orial [place] Heart Rate 2022-01-28 13:14:00 [facility] [place] Respitory Rate 2022-01-28 13:14:00 Memori al Ti Height 2022-01-28 13:14:00 180.34 cm Memorial Ti Weight 2022-01-28 13:14:00 Memorial Ti BMI Calculated 2022-01-28 13:14:00 Memori al [place] Systolic (mm Hg) 2022-01-03 14:47:00 Shane rial [place] Diastolic (mm Hg) 2022-01-03 14:47:00 Emily newman Ti Heart Rate 2022-01-03 14:47:00 Della Luke Respitory Rate 2022-01-03 14:47:00 Emilykamryn lyudmila Luke Height 2022-01-03 14:47:00 180.34 cm Della Luke Weight 2022-01-03 14:47:00 Della Luke BMI Calculated 2022-01-03 14:47:00 Katherine Sprague Procedures Procedure Date / Time Performing Clinician Source Performed ORT - XR SHOULDER RIGHT 2022-05-20 10:32:[address] (CHARGE ONLY) Medicine CBC W/AUTO DIFF WITH 2022-05-15 11:02:51 [facility] COMPREHENSIVE METABOLIC 2022-05-15 11:02:51 [facility] VITAMIN B12 2022-05-15 11:02:51 [facility] CBC W/AUTO DIFF WITH 2022-05-15 11:01:35 [facility] COMPREHENSIVE METABOLIC 2022-05-15 11:01:35 [facility] VITAMIN B12 2022-05-15 11:01:35 [facility] URINE 2022-05-15 11:01:35 [facility] CULTURE,[facility] Medicine AMB REF TO ORTHOPEDIC 2022-05-15 10:59:30 [facility] POCT URINALYSIS DIPSTICK 2022-05-15 00:00:00 Anjum Gunter [facility] POCT URINALYSIS DIPSTICK 2022-05-15 00:00:00 [facility] IMMTRAC2 CONSENT 2022-03-20 05:01:00 Doctor Unassigned, No [facility] Branch XR FOOT <3 VW RIGHT 2021-12-14 17:38:47 Gretel Huerta [facility] COMP. METABOLIC PANEL 2021-12-14 17:26:00 Gretel Huerta [facility] ([id number]) Medical Branch CBC WITH DIFF 2021-12-14 17:26:00 Gretel Huerta [facility] N-TERMINAL PRO-BNP 2021-12-14 17:26:00 Bradley, Gretel J [facility] CONSENT/REFUSAL FOR 2021-12-14 17:03:49 [facility], [facility] NOTICE OF PRIVACY 2021-12-14 17:02:58 Doctor Unassigned, No Univ [facility] PRACTICES [facility] CONSENT/REFUSAL FOR 2021-06-13 05:01:00 Doctor [facility]assigned, [facility] BASIC METABOLIC PANEL 2021-04-11 19:37:00 Anjum Gunter [facility] COLONOSCOPY (ENDO) 2020-04-12 14:52:00 Lalo Mireles [facility] EGD (ENDO) 2020-04-12 14:29:[address] [facility] COVID-19 (ID NOW RAPID 2020-04-11 17:41:[address] [facility] TESTING) Medical Branch ASSIGNMENT OF BENEFITS 2020-04-11 17:00:48 Doctor Unassigned, No [facility] Bladder care [facility] Shoulder [facility] Coello replacement<sup>2</sup> Knee [facility] Ti replacement<sup>1</sup> Plan of Care Planned Activity Planned Date Details Comments Source Future Scheduled 2023-05-15 US RENAL BILATERAL Expected: [employer] Test 00:00:00 [code = 17726] 05/15/2023, of Medicine Expires: 06/17/2024 Future Scheduled 2022-05-20 COVID-19 Vaccine (#1) [place] Test 12:00:04 [code = COVID-19 of Medicine Vaccine (#1)] Future Scheduled 2022-05-20 TETANUS SHOT (ADULT) [employer] [employer] Test 12:00:04 [code = TETANUS SHOT of Medi cine (ADULT)] Future Scheduled 2022-05-20 BMI FOLLOW UP PLAN [employer] Test 12:00:04 [code = BMI FOLLOW UP of Med icine PLAN] Future Scheduled 2022-05-20 Pneumococcal 65+ (1 - [employer] Test 12:00:04 PCV) [code = of Medicine Pneumococcal 65+ (1 - PCV)] Future Scheduled 2022-05-20 MEDICARE AWV [facility] Test 12:00:04 (Initial) [code = of Medicin e MEDICARE AWV (Initial)] Future Scheduled 2022-05-20 FLU VACCINE > 6 Postponed from [facility] [employer] Test 12:00:04 MONTHS [code = FLU 05/19/2022 of Medici ne VACCINE > 6 MONTHS] (Postpone Reason: Patient declined today) Future Scheduled 2022-05-20 FALL SCREEN [code = [employer] Test 12:00:04 FALL SCREEN] of Medicine Future Scheduled 2022-05-20 XR SHOULDER RIGHT [facility] Test 10:32:28 (COMPLETE) [code = [place] [address]] Future Scheduled 2022-05-20 ORT - XR SHOULDER Ordered: [facility] Test 10:32:26 RIGHT 3V (CHARGE 05/20/2022 of Medicine ONLY) [code = 23012] Future Scheduled 2022-05-15 COVID-19 Vaccine (#1) [employer] Test 11:09:51 [code = COVID-19 of Medicine Vaccine (#1)] Future Scheduled 2022-05-15 TETANUS SHOT (ADULT) [facility] Test 11:09:51 [code = TETANUS SHOT of Medi cine (ADULT)] Future Scheduled 2022-05-15 BMI FOLLOW UP PLAN [facility] r [employer] Test 11:09:51 [code = BMI FOLLOW UP of Med icine PLAN] Future Scheduled 2022-05-15 ZOSTER VACCINE (1 of [facility] Test 11:09:51 2) [code = ZOSTER of Medicin e VACCINE (1 of 2)] Future Scheduled 2022-05-15 Pneumococcal 65+ (1 - [employer] Test 11:09:51 PCV) [code = of Medicine Pneumococcal 65+ (1 - PCV)] Future Scheduled 2022-05-15 MEDICARE AWV [facility] Test 11:09:51 (Initial) [code = of Medicin e MEDICARE AWV (Initial)] Future Scheduled 2022-05-15 FLU VACCINE > 6 [facility] Test 11:09:51 MONTHS [code = FLU of Medici ne VACCINE > 6 MONTHS] Future Scheduled 2022-05-15 FALL SCREEN [code = [employer] Test 11:09:51 FALL SCREEN] of Medicine Future Scheduled 2022-05-15 CBC W/AUTO DIFF WITH Ordered: [employer] Test 11:02:51 PLATELETS [code = 05/15/2022 of Medicin e 70510-1] Future Scheduled 2022-05-15 COMPREHENSIVE Ordered: [facility] [employer] Test 11:02:51 METABOLIC PANEL [code 05/15/2022 of Med icine = 40568-2] Future Scheduled 2022-05-15 VITAMIN B12 [code = Ordered: [employer] Test 11:02:51 2132-9] 05/15/2022 of Medicine Future Scheduled 2022-05-15 CBC W/AUTO DIFF WITH Ordered: [employer] Test 11:01:35 PLATELETS [code = 05/15/2022 of Medicin e 41902-4] Future Scheduled 2022-05-15 COMPREHENSIVE Ordered: [facility] [employer] Test 11:01:35 METABOLIC PANEL [code 05/15/2022 of Med icine = 49125-9] Future Scheduled 2022-05-15 VITAMIN B12 [code = Ordered: [employer] Test 11:01:35 2-9] 05/15/2022 of Medicine Future Scheduled 2022-05-15 URINE Ordered: [facility] [employer] Test 11:01:35 CULTURE,COMPREHENSIVE 05/15/2022 of Med icine [code = NOCPT] Future Scheduled 2021-04-12 COVID-19 Vaccine (1) [employer] Test 10:35:50 [code = COVID-19 of Medicine Vaccine (1)] Future Scheduled 2021-04-12 TETANUS SHOT (ADULT) [employer] Test 10:35:50 [code = TETANUS SHOT of Medi cine (ADULT)] Future Scheduled 2021-04-12 BMI FOLLOW UP PLAN [facility] r [employer] Test 10:35:50 [code = BMI FOLLOW UP of Med icine PLAN] Future Scheduled 2021-04-12 ZOSTER VACCINE (1 of [employer] Test 10:35:50 2) [code = ZOSTER of Medicin e VACCINE (1 of 2)] Future Scheduled 2021-04-12 FALL SCREEN [code = [employer] Test 10:35:50 FALL SCREEN] of Medicine Future Scheduled 2021-04-12 PNEUMOVAX >=65 [facility] [employer] Test 10:35:50 (PPSV23) [code = of Medicine PNEUMOVAX >=65 (PPSV23)] Future Scheduled 2021-04-12 MEDICARE AWV [facility] Test 10:35:50 (Initial) [code = of Medicin e MEDICARE AWV (Initial)] Future Scheduled 2021-04-12 FLU VACCINE > 6 [facility] Bebeto [employer] Test 10:35:50 MONTHS [code = FLU of Medici ne VACCINE > 6 MONTHS] Encounters Start End Encounter Admission Attending Care Care Encounter Source Date/Time Date/Time Type Type Clinicians Facility Department ID 2021-08-16 Outpatient R MAR [facility] NAOMI [id number] Univers 02:39:05 PITER Tucker [facility] 2022-06-11 2022-06-12 Outpatient nullFlavo MNA [id number] Memoria 14:45:00 04:59:59 r Neurology 04 l Kobe Luke 2022-06-11 2022-06-11 Outpatient BON Mcgrath [id number] 09:45:00 23:59:59 Ben 04 Ruslan 2022-06-11 2022-06-11 Outpatient JERAMY DESHPANDE [id number] Memoria 09:45:00 09:45:00 04 andre Luke 2022-05-20 2022-05-20 Office STEPHANIE PRASAD 1.2.840.114 [id number] [facility] 10:20:39 13:06:49 Visit ARNOLD AMBULATOR 350.1.13.21 College Y 0.2.7.2.686 of [id number] Medi kala 600 e 2022-05-20 2022-05-20 Outpatient [facility] [id number] [facility] 10:32:28 10:32:28 Colleg e of Medicin e 2022-05-15 2022-05-15 Office STEPHANIE GUNTER 1.2.840.114 [id number] [facility] 09:05:11 16:44:38 Visit ANJUM AMBULATOR 350.1.13.21 College Y 0.2.7.2.686 of [id number] Medi kala 300 e 2022-03-20 2022-03-20 Nurse Therapy, Adc Covid Infusion [facility] 1.2.840.114 [id number] [facility] 16:00:00 17:00:00 Visit Armaan Polo 350.1.13.10 [id number] [place] [id number] Branch 2022-03-20 2022-03-20 Outpatient Francesca POLO [facility] [id number] Univers 16:00:00 16:00:00 ARMAAN ity [facility] 2022-03-20 2022-03-20 Orders Doctor ANNY 1.2.840.114 [id number] Univers 00:00:00 00:00:00 Only Unassigned, TIFFANY 350.1.13.10 ity [facility] 4.2.7.2.686 Jake as [id number] [address] 2022-01-28 2022-01-29 Outpatient nullFlavo MNA [id number] Memoria 13:15:00 04:59:59 r Neurology 03 l Kobe Luke 2022-01-28 2022-01-28 Outpatient BECKI McgrathSCHBRYAN MISCHER [id number] 08:15:00 23:59:59 Ben 03 Ruslan 2022-01-28 2022-01-28 Outpatient MHIE MHIE [id number] Memoria 08:15:00 08:15:00 03 l Ti 2022-01-03 2022-01-04 Outpatient nullFlavo MNA [id number] Memoria 15:00:00 04:59:59 r Neurology 02 l Kobe Peacockann 2022-01-03 2022-01-03 Outpatient BON McgrathMISCHER [id number] 10:00:00 23:59:59 Ben 02 Ruslan 2022-01-03 2022-01-03 Outpatient MHIE MHIE [id number] Memoria 10:00:00 10:00:00 02 andre Luke 2021-12-14 2021-12-14 [id number] Univers 11:15:00 13:02:00 GRETEL cherry [facility] 2021-12-14 2021-12-14 [facility] 1.2.840.114 [id number] Univers 11:15:00 13:02:00 Gretel CASTLE 350.1.13.10 ity [facility] 4.2.7.2.686 [facility] [id number] [facility] 084 Branch 2021-06-13 2021-06-13 Outpatient R DELON [facility] [id number] Univers 15:30:00 15:30:00 GUSTAVO itmiryam of [facility] 2021-06-13 2021-06-13 Nurse Therapy, Adc Covid Infusion [facility] 1.2.840.114 [id number] Univers 14:27:03 15:27:03 Visit Gustavo Richards 350.1.13.10 ity [facility] 4.2.7.2.686 [facility] Surgical [id number] [facility] 053 Branch 2021-06-13 2021-06-13 Orders Doctor ANNY 1.2.840.114 [id number] Univers 00:00:00 00:00:00 Only Unassigned, TIFFANY 350.1.13.10 ity of [place] [facility] 4.2.7.2.686 [facility] [id number] [facility] 009 Branch 2021-06-09 2021-06-09 Outpatient R ANGELIAARAN [facility] [id number] Univers 16:30:00 16:30:00 , WANDY cherry [facility] 2021-04-11 2021-04-11 Office STEPHANIE Gunter 1.2.840.114 [id number] [facility] 11:29:59 14:29:38 Visit Anjum Munoz AMBULATOR 350.1.13.21 College Y 0.2.7.2.686 [id number] [facility] 300 e 2020-09-17 2020-09-17 Outpatient Fong, [facility]AT[facility] SURG [id number] 09:15:00 09:15:00 Arnold 03 [facility] 2020-09-12 2020-09-12 Laboratory Only, [facility] Test [facility] 1.2.840. 114 [id number] Univers 09:19:35 09:34:35 Only Binh Schumacher 350.1.13.10 ity of [place] 4.2.7.2.686 [facility] [id number] [facility] 353 Branch 2020-09-12 2020-09-12 Laboratory Only, [facility] 1.2.840.114 [id number] 09:19:35 09:34:35 Only Test Lawrence 350.1.13.10 [place] 4.2.7.2.686 [place] [id number] 353 2020-09-12 2020-09-12 Outpatient R RUTH, [facility] [id number] Univers 09:00:00 09:00:00 BINH cherry [facility] 2020-09-12 2020-09-12 ANNY Brown 1.2.840.114 [id number] Univers 00:00:00 00:00:00 (Out) Armaan [place]Y 350.1.13.10 i [facility] 4.2.7.2.686 Jake as [id number] [address] 2020-09-12 2020-09-12 ANNY Brown 1.2.840.114 [id number] 00:00:00 00:00:00 (Out) Armaan Ayon TIFFANY 350.1.13.10 [facility] 4.2.7.2.686 [id number] 019 2020-04-12 2020-04-12 [facility] 1.2.840.114 [id number] [facility] 07:56:00 11:17:00 Encounter Piter tucker [place] 350.1.13.10 ity of [place]2.[place] [id number] Med ical [address] 2020-04-12 2020-04-12 [facility] 1.2.840.114 [id number] 07:56:00 11:17:00 Encounter e Nizar C [place] 350.1.13.10 [place] 4.2.7.2.686 Surgical [id number] [place] [address] 2020-04-11 2020-04-11 Laboratory Only, [facility] Test [facility] 1.2.840. 114 [id number] [facility] 12:02:55 12:17:55 Only Pineda Ceeton 350.1.13.10 ity of [place].2.[place] [phone] [address] 2020-04-11 2020-04-11 Laboratory Only, [facility] 1.2.840.114 [id number] 12:02:55 12:17:55 Only Test Ezio 350.1.13.10 [place] 4.2.7.2.686 [place] [id number] 353 2020-04-11 2020-04-11 Outpatient R PINEDA CEE [facility] [id number] Univers 12:00:00 12:00:00 ity of [facility] 2020-04-11 2020-04-11 Orders Doctor ANNY 1.2.840.114 [id number] Univers 00:00:00 00:00:00 Only Unassigned, TIFFANY 350.1.13.10 ity of [place] [facility] 4.2.7.2.686 [facility] as [phone] [address] Results Test Description Test Time Test Comments Results Result Comments Source POCT URINALYSIS DIPSTICK 2022-05-15 00:00:00 Test Item Value Reference Range Interpretation Comme nts COLOR UA (test code = 5778-6) Yellow YELLOW/STRAW CLARITY UA (test code = 11714-7) Clear CLEAR GLUCOSE UA (test code = 5792-7) Negative NEGATIVE BILIRUBIN UA (test code = 5770-3) Negative NEGATIVE KETONES UA (test code = 79849-6) Negative NEGATIVE SPECIFIC GRAVITY UA (test code = 5811-5) 1.005-1.035 BLOOD UA (test code = 5794-3) Large 3+ NEGATIVE PH UA (test code = 5803-2) 5-9 PROTEIN UA (test code = 5804-0) 1+ NEGATIVE UROBILINOGEN UA (test code = 5818-0) 0.02 E.U/DL NORMAL MG/DL LEUKOCYTE ESTERASE UA (test code = 5799-2) Negative NEGATIVE NITRITE UA (test code = 5802-4) Negative NEGATIVE REDUCING SUBSTANCES URINE (test code = 20028-2) [facility] WITH [id number] 18:45:49 Test Item Value Reference Range Interpretation Comments WBC (test code = See_Comment H [Automated 6690-2) message] The sy stem which generated this result transmitted reference range : 4.20 - 10.70 10*3/?L. The reference range was not used to interpret this result as normal/abnormal . RBC (test code = See_Comment L [Automated 789-8) message] The sy stem which generated this result transmitted reference range : 4.26 - 5.52 10*6/?L. The reference range was not used to interpret this result as normal/abnormal . HGB (test code = 13.0 g/dL 12.2-16.4 718-7) HCT (test code = 39.7 % 38.4-49.3 4544-3) MCV (test code = 98.8 fL 81.7-95.6 H 787-2) MCH (test code = 32.3 pg 26.1-32.7 785-6) MCHC (test code = 32.7 g/dL 31.2-35.0 786-4) RDW-SD (test code = 45.1 fL 38.5-51.6 88289-0) RDW-CV (test code = 12.4 % 12.1-15.4 788-0) PLT (test code = See_Comment [Automated 777-3) message] The sy stem which generated this result transmitted reference range : 150 - 328 10*3/ ?L. The reference r jessica was not used to interpret this result as normal/abnormal . MPV (test code = 10.2 fL 9.8-13.0 79956-6) NRBC/100 WBC (test See_Comment [Automat ed code = 9445875391) message] The system which generated this result transmitted reference range : 0.0 - 10.0 /100 WBCs. The refer ence range was not u sed to interpret th is result as normal/abnormal . NRBC x10^3 (test code <0.01 See_Comment [Auto mated = 8859492938) message] The s ystem which generated this result transmitted reference range : 10*3/?L. The reference range was not used to interpret this result as normal/abnormal . GRAN MAT (NEUT) % 69.5 % (test code = 770-8) IMM GRAN % (test code 1.10 % = 8868991409) LYMPH % (test code = 13.1 % 736-9) MONO % (test code = 14.4 % 5905-5) EOS % (test code = 1.4 % 713-8) BASO % (test code = 0.5 % 706-2) GRAN MAT x10^3(ANC) 8.17 10*3/uL 1.99-6.95 H (test code = 1437337572) IMM GRAN x10^3 (test 0.13 10*3/uL 0.00-0.06 H code = 2788711214) LYMPH x10^3 (test code 1.54 10*3/uL 1.09-3.23 = 731-0) MONO x10^3 (test code 1.70 10*3/uL 0.36-1.02 H = 742-7) EOS x10^3 (test code = 0.17 10*3/uL 0.06-0.53 711-2) BASO x10^3 (test code 0.06 10*3/uL 0.01-0.09 = 704-7) Lab Interpretation Abnormal (test code = 85670-3) [id number] 18:08:25 Test Item Value Reference Range Interpretation Comments NT-proBNP (test code 1210 pg/mL See_Comment H [Autom ated = 4271984649) message] The system which generated this result transmitted reference range : <=450. The reference range was not used to interpret this result as normal/abnormal . VERONIKA (test code = VERONIKA) Biotin has been reported to cause a negative bias, interpret results relative to patient's use of biotin. Lab Interpretation Abnormal (test code = 22627-8) [facility] (83174)2021-12-14 18:00:27 Test Item Value Reference Range Interpretation Comments NA (test code = 142 mmol/L 135-145 4738251613) K (test code = 4.7 mmol/L 3.5-5.0 4098718509) CL (test code = 106 mmol/L 98-108 3278712738) CO2 TOTAL (test code = 22 mmol/L 23-31 L 7711461613) AGAP (test code = 2-16 5176003303) BUN (test code = 26 mg/dL 7-23 H 2587835927) GLUCOSE (test code = 124 mg/dL 70-110 H 7248287263) CREATININE (test code = 1.56 mg/dL 0.60-1.25 H 5155871699) TOTAL BILI (test code = 1.0 mg/dL 0.1-1.8 5959073886) CALCIUM (test code = 9.6 mg/dL 8.6-10.6 8533405781) T PROTEIN (test code = 7.7 g/dL 6.3-8.2 8660080774) ALBUMIN (test code = 4.6 g/dL 3.5-5.0 8584136124) ALK PHOS (test code = 82 U/L 34-122 6759309195) ALTv (test code = 48 U/L 5-50 1742-6) AST(SGOT) (test code = 53 U/L 13-40 H 3846389180) eGFR (test code = mL/min/1.73m2 2005854447) VERONIKA (test code = VERONIKA) Association of [...] tests). Lab Interpretation Abnormal (test code = 60454-2) [facility] [id number] 07:55:25 Test Item Value Reference Range Interpretation Comments GLUCOSE (test code = See_Comment [Autom ated message] 2345-7) The system [employer] generated this result transmitted ref erence range: 70 - 99 MG/DL. The reference r jessica was not used to interpret this result as normal/abnor mal. BLOOD UREA NITROGEN See_Comment H [Automa sloane message] (test code = 3091-6) The sys tem which generated this result transmitted ref erence range: 8 - 23 M G/DL. The reference r jessica was not used to interpret this result as normal/abnor mal. CREATININE (test code = See_Comment H [Au tomated message] 2160-0) The system [employer] generated this result transmitted ref erence range: 0.80 - 1 .40 MG/DL. The refe rence range was not u sed to interpret this result as normal/abnor mal. EGFR AA (test code = See_Comment L [Autom ated message] 14074-1) The system [employer] generated this result transmitted ref erence range: >60 ML/MIN/1.73. Th e reference range was not used to int erpret this result as normal/abnormal . EGFR (test code = See_Comment L [Automate d message] 81991-9) The system [employer] generated this result transmitted ref erence range: >60 ML/MIN/1.73. Th e reference range was not used to int erpret this result as normal/abnormal . SODIUM (test code = See_Comment [Automa sloane message] 2951-2) The system [employer] generated this result transmitted ref erence range: 133 - 14 6 MEQ/L. The refe rence range was not u sed to interpret this result as normal/abnor mal. POTASSIUM (test code = See_Comment [Aut omated message] 2823-3) The system [employer] generated this result transmitted ref erence range: 3.5 - 5. 4 MEQ/L. The refe rence range was not u sed to interpret this result as normal/abnor mal. CHLORIDE (test code = See_Comment [Auto mated message] 7335-0) The system [employer] generated this result transmitted ref erence range: 95 - 107 MEQ/L. The refe rence range was not u sed to interpret this result as normal/abnor mal. CO2 (test code = 1963-8) See_Comment [A utomated message] The system [employer] generated this result transmitted ref erence range: 19 - 31 MEQ/L. The reference r jessica was not used to interpret this result as normal/abnor mal. CALCIUM (test code = See_Comment Unless Otherwise 15526-8) Indicated, All Testing Perform ed At: [facility], [address] [place] [address] Laborator y Director: Yossi Lepe M.D. IA Number [id number] [employer] N o. [id number] [Autom ated message] The sy stem which generated this result transmit sloane reference range : 8.5 - 10.5 MG/DL. T he reference range was not used to int erpret this result as normal/abnormal . Lab Interpretation (test Abnormal code = 95593-2) [facility]2020-04-11 17:42:00 Test Item Value Reference Range Interpretation Comments SARS-CoV-2 Rapid ID NOW Not Detected Not Detected (test code = 58288-4) VERONIKA (test code = VERONIKA) ID NOW COVID-19 Assay is an isothermal nucleic acid amplification test intended for the qualitative detection of nucleic acid from SARS-CoV-2 viral RNA in nasopharyngeal (TEXTILE COLORIST DYER) specimens. It is used under Emergency Use [...] indicated. Lab Interpretation Normal (test code = 98420-1) [facility] NOW RAPID TEST[facility])2020-04-11 17:42:00 Test Item Value Reference Range Interpretation Comments SARS-CoV-2 Rapid ID NOW Not Detected Not Detected (test code = 23250-2) VERONIKA (test code = VERONIKA) ID NOW COVID-19 Assay is an isothermal nucleic acid amplification test intended for the qualitative detection of nucleic acid from SARS-CoV-2 viral RNA in nasopharyngeal (TEXTILE COLORIST DYER) specimens. It is used under Emergency Use [...] indicated. Lab Interpretation Normal (test code = 70655-3) [facility] NOW [facility]APID TESTING)2020-04-11 17:42:00 Test Item Value Reference Range Interpretation Comments SARS-CoV-2 Rapid ID NOW Not Detected Not Detected (test code = 63823-0) VERONIKA (test code = VERONIKA) ID NOW COVID-19 Assay is an isothermal nucleic acid amplification test intended for the qualitative detection of nucleic acid from SARS-CoV-2 viral RNA in nasopharyngeal (TEXTILE COLORIST DYER) specimens. It is used under Emergency Use [...] indicated. Lab Interpretation Normal (test code = 51484-7) [facility]"
[2022-11-06 10:08] LABS: Absolute Lymphocytes (CBC) 0.9 K/uL (0.7-4.9); Hematocrit 37.7 % (39.6-49.0); Lymphocytes % 10.2 % (15.3-44.8); MCV 97.9 fL (80-100); MPV 7.9 fL (7.6-11.3); RBC Red Blood Cell Count 3.86 M/uL (4.33-5.43)
[2022-11-06 10:17] LABS: Urine Blood 3+ (Negative); Urine Glucose Negative (Negative); Urine Protein 1+ (Negative); Urine pH 5.5 (5.0-7.0)
[2022-11-06 10:26] LABS: Potassium 4.9 mmol/L (3.5-5.1); Troponin High Sensitivity 42.9 pg/mL (<58.9)
--- NOTE | 2022-11-06 10:41 | RAD REPORT ---
EXAM DESCRIPTION: CT - Head Brain Wo Cont - 11/06/2022 10:29 am CLINICAL HISTORY: Dizzy COMPARISON: Head Brain Wo Cont dated 04/10/2017 TECHNIQUE: Axial 5 mm thick images of the head were obtained without IV contrast. All CT scans are performed using dose optimization technique as appropriate and may include automated exposure control or mA/KV adjustment according to patient size. FINDINGS: No intracranial hemorrhage, mass, edema or shift of mid-line structures. No acute cortical based infarction. Patient's moderate cerebral atrophy and mild to moderate chronic ischemic change p attern in the white matter stable from 2017. No abnormal extra-axial fluid collections. Ventricles ar e in proportion to the volume loss. Dense arterial tree calcifications are present. Mastoid air cells and visualized portions of the paranasal sinuses are clear. No acute bony findings. IMPRESSION: Negative non-contrast CT head examination for acute finding.
--- NOTE | 2022-11-06 10:43 | RAD REPORT ---
EXAM DESCRIPTION: RAD - Chest Single View - 11/06/2022 10:29 am CLINICAL HISTORY: Nausea COMPARISON: Portable 12/15/2021 TECHNIQUE: AP portable chest image was obtained 11/06/2022 10:29 am . FINDINGS: No focal lung parenchymal process. Interstitial pattern matches comparison. Heart and vasc ulature are normal. No measurable pleural effusion and no pneumothorax. No acute bone finding. Right shoulder prosthesis again noted. No acute aortic findings suspected. IMPRESSION: No acute cardiopulmonary process. No significant change from comparison study.
--- NOTE | 2022-11-06 12:40 | RAD REPORT ---
EXAM DESCRIPTION: MRI - Brain W/Wo Cont - 11/06/2022 12:30 pm CLINICAL HISTORY: DIZZINESS Headache, drowsiness, CVA symptomology COMPARISON: MRA Head Wo Cont dated 11/06/2022; Head Brain Wo Cont dated 11/06/2022 TECHNIQUE: Multi-sequence, multiplanar MR imaging of the brain was performed with contrast. FINDINGS: No intracranial hemorrhage, hydrocephalus, or extra-axial fluid collection.Moderate conflu ent T2/FLAIR hyperintensity in the periventricular and deep white matter is present compatible with c hronic microvascular ischemic changes. No edema or shift of midline structures. No intracranial mass. DWI is negative for acute CVA. The midline structures are normally formed. Mastoid air cells and paranasal sinuses are clear. Post-contrast images show no abnormal enhancement to suggest tumor or infection. IMPRESSION: Negative for acute CVA or other acute intracranial process.
--- NOTE | 2022-11-06 12:41 | RAD REPORT ---
EXAM DESCRIPTION: MRI - MRA Head Wo Cont - 11/06/2022 12:30 pm CLINICAL HISTORY: Dizziness CVA COMPARISON: Head Brain Wo Cont dated 11/06/2022 FINDINGS: 3D noncontrast [id number] MR angiography of the [place] was performed. No aneurysm, flow-limiting stenosis or vascular malformation is seen. Forward flow seen in codominant vertebral arteries. The visualized dural venous sinuses appear patent. IMPRESSION: No significant flow abnormality of the [place] is identified.
--- NOTE | 2022-11-06 12:50 | RAD REPORT ---
EXAM DESCRIPTION: MRI - MRA Neck W/Wo Cont - 11/06/2022 12:30 pm CLINICAL HISTORY: DIZZINESS Headache, drowsiness, CVA symptomology COMPARISON: No comparisons FINDINGS: Contrast enhance 2D [id number] MR angiography of the neck vessels was performed. There is a left aortic arch with normal branching pattern of the great vessels. Mild narrowing of the carotid bulbs seen bilaterally without high-grade stenosis. There is antegrade flow in both vertebral arteries which are largely codominant. IMPRESSION: There is no significant carotid stenosis seen.
--- NOTE | 2022-11-06 13:34 | ER ---
Nurse's Notes [facility] Name: Alpesh Alves Age: 82 yrs Sex: Male : 1940 Arrival Date: 11/06/2022 Time: 09:43 Bed 18 Private MD: Diagnosis: Dizziness and giddiness Presentation: 11/06 09:54 Chief complaint: Patient states: he was sent here by Dr. Madison. He reports he had his ap3 carotid arteries scanned yesterday, and started feeling dizzy, weak and nauseated last night. patient had his follow up this morning where he was informed that one of his arteries were a reported "nearly 100% occluded". Patient states that Dr. Madison sent him here for further evaluation due to his carotid reported with his combined symptoms of dizziness, weakness and nausea. Coronavirus screen: At this time, the client does not indicate any symptoms associated with coronavirus-19. Ebola Screen: No symptoms or risks identified at this time. Initial Sepsis Screen: Does the patient meet any 2 criteria? No. Patient's initial sepsis screen is negative. Does the patient have a suspected source of infection? No. Patient's initial sepsis screen is negative. Risk Assessment: Do you want to hurt yourself or someone else? Patient reports no desire to harm self or others. Onset of symptoms was November 05, 2022. 09:54 Method Of Arrival: Ambulatory ap3 09:54 Acuity: DEE 3 ap3 Triage Assessment: 09:57 General: Appears uncomfortable, Behavior is calm, cooperative. General: Reports fatigue ap3 for. Pain: Denies pain. Neuro: Level of Consciousness is awake, alert, Oriented to person, place, time, situation, Gait is steady, Speech is normal, Facial symmetry appears normal, Reports weakness. Cardiovascular: Patient's skin is warm and dry. Respiratory: Airway is patent Respiratory effort is even, unlabored, Respiratory pattern is regular, symmetrical. GI: Reports nausea. 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 - Social history:: Smoking status: Patient denies any tobacco usage or history of. Screenin:58 Abuse screen: Denies threats or abuse. Nutritional screening: No deficits noted. ap3 Tuberculosis screening: No symptoms or risk factors identified. 10:21 [facility] ED Fall Risk Assessment (Adult) History of falling in the last 3 months, ko1 including since admission No falls in past 3 months (0 pts) Confusion or Disorientation No (0 pts) Intoxicated or Sedated No (0 pts) Impaired Gait Yes (1 pt) Mobility Assist Device Used No (0 pt) Altered Elimination No (0 pt) Score/Fall Risk Level 0 - 2 = Low Risk Oriented to surroundings, Maintained a safe environment, Educated pt \\T\\ family on fall prevention, incl call for assistance when getting out of bed, Assessed \\T\\ reinforced patient's understanding of fall precautions, Provided non-skid footwear, Hourly rounding (assess needs \\T\\ fall precautionary measures) done, Used ambulatory aids as needed (educated on \\T\\ assisted with), Used gait belt as appropriate. Assessment: 10:00 General: Appears in no apparent distress. comfortable, Behavior is calm, cooperative, ko1 appropriate for age. Pain: Denies pain. Neuro: Reports dizziness, weakness. Cardiovascular: No deficits noted. Respiratory: No deficits noted. GI: No deficits noted. GI: Reports nausea. : No deficits noted. EENT: No deficits noted. Derm: No deficits noted. Musculoskeletal: No deficits noted. Vital Signs: 09:54 BP 117 / 82; Pulse 78; Resp 18; Pulse Ox 98% ; Weight 104.33 kg; Height 5 ft. 11 in. ap3 (180.34 cm); 10:21 BP 174 / 88; Pulse 85; Resp 18; Pulse Ox 99% ; ko1 10:47 BP 181 / 94; Pulse 66; Pulse Ox 99% ; ko1 12:00 BP 155 / 86; Pulse 71; Pulse Ox 98% ; ko1 13:00 BP 150 / 70; Pulse 63; Pulse Ox 99% ; ko1 09:54 Body Mass Index 32.08 (104.33 kg, 180.34 cm) ap3 ED Course: 09:43 Patient arrived in ED. rg4 09:45 Dano Dick MD is Attending Physician. kdr 09:48 Shagufta Betts RN is Primary Nurse. ko1 09:50 Inserted saline lock: 20 gauge in right antecubital area, using aseptic technique. ko1 Blood collected. 09:55 Initial lab(s) drawn, by me, sent to lab. ko1 09:57 Triage completed. ap3 09:58 Patient has correct armband on for positive identification. Bed in low position. Call ap3 light in reach. Side rails up X 1. Adult w/ patient. acid regenerator on. Pulse ox on. NIBP on. Door closed. Noise minimized. 09:58 Arm band placed on right wrist. ap3 10:00 Basic Metabolic Panel Sent. ko1 10:01 CBC with Diff Sent. ko1 10:01 NT PRO-BNP Sent. ko1 10:01 Troponin HS Sent. ko1 10:[address] via wheelchair. ko1 10:31 XRAY Chest (1 view) In Process Unspecified. EDMS 10:31 CT Head Brain wo Cont In Process Unspecified. EDMS 10:35 Patient moved back from CT. ko1 12:32 MRA Head Wo Cont In Process Unspecified. EDMS 12:32 Brain W/Wo Cont In Process Unspecified. EDMS 12:32 MRA Neck W/Wo Cont In Process Unspecified. EDMS 13:29 No provider procedures requiring assistance completed. IV discontinued, intact, ko1 bleeding controlled, No redness/swelling at site. Pressure dressing applied. Administered Medications: 13:42 Drug: Meclizine 25 mg Route: PO; ko1 Medication: 13:29 VIS not applicable for this client. ko1 Outcome: 13:34 Discharge ordered by . kdr 13:53 Discharged to home ambulatory, with family. ko1 13:53 Condition: improved 13:53 Discharge instructions given to patient, family, Instructed on discharge instructions, follow up and referral plans. medication usage, Demonstrated understanding of instructions, follow-up care, medications, Prescriptions given X 1. 13:53 Patient left the ED. ko1 Signatures: Dispatcher [employer] EDMS Dano Dick MD MD kdr Garcia, Rubi rg4 Genesis Cantor RN RN ap3 Shagufta Betts, JOE RN ko1 Corrections: (The following items were deleted from the chart) 09:57 09:57 Allergies: BP medication - unknown; ap3 ap3
--- NOTE | 2022-11-06 13:34 | EDPHYS ---
Physician Documentation [facility] Name: Alpesh Alves Age: 82 yrs Sex: Male : 1940 Arrival Date: 11/06/2022 Time: 09:43 Bed 18 Private MD: ED Physician Dano Dick HPI: 11/06 15:34 This 82 yrs old Male presents to ER via Ambulatory with complaints of Dizziness, kdr Nausea, Sent By Gricelda. 15:34 Patient is brought to the ED by POV. He was sent by Dr. Madison who had had a report kdr from an ultrasound scan of his neck indicating that he had near 100% occlusion of his carotid artery on the left. Patient has been experience some mild dizziness but otherwise has no other specific symptoms or complaints at this time. Patient is completely nontoxic appearing. Patient is mildly dizzy but otherwise without report of any illness or injury. Onset: The symptoms/episode began/occurred gradually, Few days. Severity of symptoms: At their worst the symptoms were mild in the emergency department the symptoms are unchanged. The patient has not experienced similar symptoms in the past. The patient has been recently seen by a physician: the patient's primary care provider, a physician office clin asst. 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 - Social history:: Smoking status: Patient denies any tobacco usage or history of. ROS: 15:34 Constitutional: Negative for fever, chills, and weight loss, Eyes: Negative for injury, kdr pain, redness, and discharge, ENT: Negative for injury, pain, and discharge, Neck: Negative for injury, pain, and swelling, Cardiovascular: Negative for chest pain, palpitations, and edema, Respiratory: Negative for shortness of breath, cough, wheezing, and pleuritic chest pain, Abdomen/GI: Negative for abdominal pain, nausea, vomiting, diarrhea, and constipation, Back: Negative for injury and pain, : Negative for injury, bleeding, discharge, and swelling, MS/Extremity: Negative for injury and deformity, Skin: Negative for injury, rash, and discoloration, Psych: Negative for depression, anxiety, suicide ideation, homicidal ideation, and hallucinations, Allergy/Immunology: Negative for hives, rash, and allergies, Endocrine: Negative for neck swelling, polydipsia, polyuria, polyphagia, and marked weight changes, Hematologic/Lymphatic: Negative for swollen nodes, abnormal bleeding, and unusual bruising. 15:34 Neuro: Positive for dizziness, Negative for altered mental status, gait disturbance, headache, hearing loss, loss of consciousness, numbness, seizure activity, speech changes, syncope. Exam: 15:34 Constitutional: This is a well developed, well nourished patient who is awake, alert, kdr and in no acute distress. Head/Face: Normocephalic, atraumatic. Eyes: Pupils equal round and reactive to light, extra-ocular motions intact. Lids and lashes normal. Conjunctiva and sclera are non-icteric and not injected. Cornea within normal limits. Periorbital areas with no swelling, redness, or edema. Neck: Trachea midline, no thyromegaly or masses palpated, and no cervical lymphadenopathy. Supple, full range of motion without nuchal rigidity, or vertebral point tenderness. No Meningismus. Chest/axilla: Normal chest wall appearance and motion. Nontender with no deformity. No lesions are appreciated. Cardiovascular: Regular rate and rhythm with a normal S1 and S2. No gallops, murmurs, or rubs. Normal PMI, no JVD. No pulse deficits. Respiratory: Lungs have equal breath sounds bilaterally, clear to auscultation and percussion. No rales, rhonchi or wheezes noted. No increased work of breathing, no retractions or nasal flaring. Abdomen/GI: Soft, non-tender, with normal bowel sounds. No distension or tympany. No guarding or rebound. No evidence of tenderness throughout. Back: No spinal tenderness. No costovertebral tenderness. Full range of motion. Skin: Warm, dry with normal turgor. Normal color with no rashes, no lesions, and no evidence of cellulitis. MS/ Extremity: Pulses equal, no cyanosis. Neurovascular intact. Full, normal range of motion. Neuro: Awake and alert, GCS 15, oriented to person, place, time, and situation. Cranial nerves II-XII grossly intact. Motor strength 5/5 in all extremities. Sensory grossly intact. Cerebellar exam normal. Normal gait. Psych: Awake, alert, with orientation to person, place and time. Behavior, mood, and affect are within normal limits. Vital Signs: 09:54 BP 117 / 82; Pulse 78; Resp 18; Pulse Ox 98% ; Weight 104.33 kg; Height 5 ft. 11 in. ap3 (180.34 cm); 10:21 BP 174 / 88; Pulse 85; Resp 18; Pulse Ox 99% ; ko1 10:47 BP 181 / 94; Pulse 66; Pulse Ox 99% ; ko1 12:00 BP 155 / 86; Pulse 71; Pulse Ox 98% ; ko1 13:00 BP 150 / 70; Pulse 63; Pulse Ox 99% ; ko1 09:54 Body Mass Index 32.08 (104.33 kg, 180.34 cm) ap3 MDM: 13:34 Patient medically screened. kdr 15:34 Data reviewed: vital signs, nurses notes, lab test result(s), radiologic studies. kdr Consideration of Admission/Observation Patient was admitted/placed on observation. Escalation of care including admission/observation considered. Management of patient was discussed with the following: Contract Project Manager: Dr. Madison regarding non-occlusion of coronary arteries. 11/06 09:46 Order name: Basic Metabolic Panel; Complete Time: 11:38 [facility] 11/06 09:46 Order name: CBC with Diff; Complete Time: 11:38 [facility] 11/06 09:46 Order name: NT PRO-BNP; Complete Time: 11:38 [facility] 11/06 09:46 Order name: Troponin HS; Complete Time: 11:38 [facility] 11/06 09:46 Order name: XRAY Chest (1 view); Complete Time: 11:38 [facility] 11/06 10:18 Order name: Urine Dipstick-Ancillary; Complete Time: 11:38 [facility] 11/06 09:46 Order name: EKG; Complete Time: 09:47 [facility] 11/06 10:10 Order name: CT Head Brain wo Cont; Complete Time: 11:38 [facility] 11/06 10:26 Order name: MRI Stroke Protocol [facility] 11/06 12:05 Order name: MRA Head Wo Cont; Complete Time: 12:47 [facility] 11/06 12:07 Order name: Brain W/Wo Cont; Complete Time: 12:47 [facility] 11/06 12:07 Order name: MRA Neck W/Wo Cont; Complete Time: 13:17 [facility] 11/06 09:46 Order name: Cardiac monitoring; Complete Time: 09:48 kdr 11/06 09:46 Order name: EKG - Nurse/Tech; Complete Time: 10:01 kdr 11/06 09:46 Order name: IV Saline Lock; Complete Time: 10:00 kdr 11/06 09:46 Order name: Labs collected and sent; Complete Time: 10:00 kdr 11/06 09:46 Order name: O2 Per Protocol; Complete Time: 09:48 kdr 11/06 09:46 Order name: O2 Sat Monitoring; Complete Time: 09:48 kdr Administered Medications: 13:42 Drug: Meclizine 25 mg Route: PO; ko1 Disposition Summary: 11/06/22 13:34 Discharge Ordered Location: Home kdr Problem: new kdr Symptoms: have improved kdr Condition: Stable kdr Diagnosis - Dizziness and giddiness kdr Followup: kdr - With: Private Physician - When: 2 - 3 days - Reason: If symptoms return, Further diagnostic work-up, Recheck today's complaints, Continuance of care, Re-evaluation by your physician Discharge Instructions: - Discharge Summary Sheet kdr - Dizziness, [id number] kdr Forms: - Medication Reconciliation Form kdr - Thank You Letter kdr Prescriptions: - Meclizine 25 mg Oral Tablet - take 1 tablet by ORAL route every 8 hours As needed; 15 tablet; Refills: 0, kdr Product Selection Permitted Signatures: Dispatcher [employer] Dano Mariscal MD MD kdr Genesis Cantor RN RN ap3 Shagufta Betts RN RN ko1 Corrections: (The following items were deleted from the chart) 09:57 09:57 Allergies: BP medication - unknown; ap3 ap3 12:05 10:30 Stroke Protocol ordered. [facility]
[2022-11-06] MEDS ORDERED: MECLIZINE HCL 12.5 MG TAB ONE (13:40)
[2022-11-06 14:43] VITALS: BP 150/70; O2SAT 99
--- NOTE | 2022-11-07 17:34 | EKG ---
Test Date: 2022-11-06 Test Time: 10:49:39 Epidemiology Investigator: BINDU MEASUREMENT RESULTS: Intervals: Rate: 70 NH: 202 QRSD: 92 QT: 404 QTc: 436 [place]: P: 47 NH: 202 QRS: 3 T: 35 INTERPRETIVE STATEMENTS: Normal sinus rhythm Incomplete right bundle branch block Borderline ECG Compared to ECG 12/15/2021 19:46:02 Incomplete right bundle-branch block now present Atrial flutter no longer present Ventricular premature complex(es) no longer present Electronically Signed On 11-07-22 17:31:39 ASSOCIATE PROFESSOR OF COMMUNICATION by Blayne Madison
== END 2022-11-06 13:53 | disposition home or self-care (01) ==
LOC: ER 09:41
DX: R42 Dizziness and giddiness (principal); I10 Essential (primary) hypertension; K21.9 Gastro-esophageal reflux disease without esophagitis; Z85.51 Personal history of malignant neoplasm of bladder; I48.91 Unspecified atrial fibrillation
CPT/HCPCS: 85025; 80048; 36415; 81003; 84484; 83880; 70450; 71045; 70553; 70544; 70549; A9577; J8597; 93005

== ENCOUNTER 2022-12-01 12:31 | Day surgery (SDC) | payer OTHER, MEDICARE ==
[2022-11-21 11:39] LABS: Absolute Lymphocytes (CBC) 1.4 K/uL (0.7-4.9); Hematocrit 40.5 % (39.6-49.0); Lymphocytes % 14.3 % (15.3-44.8); MPV 8.5 fL (7.6-11.3); RBC Red Blood Cell Count 4.14 M/uL (4.33-5.43)
[2022-11-21 11:43] LABS: Protime INR 1.2
[2022-11-21 11:46] LABS: Potassium 4.8 mmol/L (3.5-5.1)
[2022-12-01] MEDS ORDERED: NA CHLORIDE 0.9% 500 ML ONE (12:37)
[2022-12-01] MEDS ORDERED: LIDOCAINE 1% 20 ML MDV ONE (13:09)
[2022-12-01] MEDS ORDERED: FENTANYL CITR 100 MCG/2 ML ONE (13:09)
[2022-12-01] MEDS ORDERED: HEPA 1000U/500MLS 2,000 UNIT/1,000 ML BAG IV ONE (13:09)
[2022-12-01] MEDS ORDERED: ATROPINE SULF 1 MG/10 ML SYR IV ONE (13:10)
[2022-12-01] MEDS ORDERED: MIDAZOLAM HCL 2 MG/2 ML INJ ONE (13:10)
[2022-12-01 15:10] VITALS: TEMP 97
[2022-12-01] MEDS ORDERED: ACETAMINOPHEN 325 MG TABLET ONE (16:23)
[2022-12-01 17:32] VITALS: BP 132/74; O2SAT 98
--- NOTE | 2022-12-01 23:09 | OP ---
Date of Procedure: 12/01/2022 Surgeon: NICHOL CEVALLOS Procedure Performed: Bilateral selective carotid angiogram. Indication: Carotid stenosis by Doppler. Access: Right femoral artery 4-Kazakh closed with manual pressure. Complications: None. Estimated Blood Loss: Bleeding less than 10 mL. Description Of Procedure: After risks, benefits, and alternatives were explained, the patient agreed to proceed and signed informed consent. The patient was brought to the [facility] and prepped and draped in sterile fashion. Then I accessed right femoral artery using micropu ncture kit, ultrasound guidance, and fluoroscopy and placed 4-Kazakh [place] sheath. We took a 4-Fr [employer] 3DRC catheter into the aortic root, engaged the right brachiocephalic artery, and then performed an angiogram of the right carotid artery and then engaged the left common carotid artery and perform ed angiogram and then removed the catheter and sheath was removed. Manual pressure was applied with hemostasis. Findings: 1.Right common carotid artery is widely patent. Right internal carotid artery with proximal 30% to 40% stenosis. 2.The left common carotid artery is normal. The left internal carotid artery is normal, dilated at the pulp and the left external carotid artery is a very small vessel. Conclusion: Mild carotid stenosis. Plan: Medical management. SR/MODL Voice ID: [id number] Report ID: [id number]
--- NOTE | 2022-12-02 17:48 | EKG ---
Test Date: 2022-11-21 Test Time: 11:19:09 Research Administrator: LILLIAN MEASUREMENT RESULTS: Intervals: Rate: 69 [place]: QRSD: 88 QT: 376 QTc: 402 [place]: P: NV: QRS: -9 T: 18 INTERPRETIVE STATEMENTS: Atrial fibrillation with a competing junctional pacemaker Abnormal ECG Compared to ECG 11/06/2022 10:49:39 Sinus rhythm no longer present Incomplete right bundle-branch block no longer present Electronically Signed On 12-02-22 17:28:56 POWER OPERATOR by Blayne Madison
== END 2022-12-01 17:41 | disposition home or self-care (01) ==
LOC: CCL 12:31
PROVIDERS: ATTEND Internal Medicine
DX: I65.23 Occlusion and stenosis of bilateral carotid arteries (principal); I25.10 Atherosclerotic heart disease of native coronary artery without angina pectoris; I70.213 Atherosclerosis of native arteries of extremities with intermittent claudication, bilateral legs; I10 Essential (primary) hypertension; I48.0 Paroxysmal atrial fibrillation; Z95.0 Presence of cardiac pacemaker; Z79.01 Long term (current) use of anticoagulants; Z79.899 Other long term (current) drug therapy; Z87.891 Personal history of nicotine dependence
CPT/HCPCS: 93005; 85025; 80048; 36415; 85610; 85730; 36222; 76937; C1893; J2250; J3010; J7040; J1644; J0461; J2001

== ENCOUNTER 2023-12-03 13:14 | Inpatient (IN) | payer OTHER ==
[2023-12-03] MEDS: INFLUENZA VACCINE (for 6+ mo) 0.5 ML DOSE IMVAC ONE (15:00)
[2023-12-03 15:09] VITALS: BMI 32.9
[2023-12-03 16:07] LABS: Absolute Lymphocytes (CBC) 1.6 K/uL (0.7-4.9); Hematocrit 33.3 % (39.6-49.0); Lymphocytes % 18.9 % (15.3-44.8); MCV 96.9 fL (80-100); MPV 8.2 fL (7.6-11.3); Platelets 210 thou/uL (152-406); RBC Red Blood Cell Count 3.44 M/uL (4.33-5.43)
[2023-12-03 17:09] LABS: Albumin 3.5 g/dL (3.4-5.0); Bilirubin Total 0.9 mg/dL (0.2-1.0); Magnesium 1.7 mg/dL (1.6-2.4); Potassium 4.2 mEq/L (3.5-5.1); Protein, Total 7.2 g/dL (6.4-8.2)
[2023-12-03 17:13] LABS: Troponin High Sensitivity 96.9 pg/mL (<58.9)
[2023-12-03] MEDS: ASPIRIN EC 81 MG TAB PO ONE (19:02)
--- NOTE | 2023-12-03 19:58 | RAD REPORT ---
EXAM DESCRIPTION: RAD - Chest Pa And Lat (2 Views) - 12/03/2023 7:52 pm CLINICAL HISTORY: chest pain Chest pain. COMPARISON: No comparisons TECHNIQUE: PA and lateral views of the chest were obtained. FINDINGS: The lungs are hyperexpanded compatible with COPD. The heart is upper limit of normal in si ze. No fracture or aggressive bony process. Right shoulder arthroplasty. IMPRESSION: COPD without acute process identified. The USPSTF recommends annual screening for lung cancer with low-dose CT (LDCT) in adults aged 50 to 8 0 years who have a 20 pack-year smoking history and currently smoke or have quit within the past 15 y ears.
--- NOTE | 2023-12-03 20:14 | RAD REPORT ---
EXAM DESCRIPTION: CT - Head Brain Wo Cont - 12/03/2023 7:58 pm CLINICAL HISTORY: altered eye sight Headache, drowsiness COMPARISON: Head Brain Wo Cont dated 11/06/2022; Head Brain Wo Cont dated 04/10/2017 TECHNIQUE: All CT scans are performed using dose optimization technique as appropriate and may inclu de automated exposure control or mA/KV adjustment according to patient size. FINDINGS: No intracranial hemorrhage, hydrocephalus or extra-axial fluid collection.Moderate general ized brain atrophy is present with mild periventricular and deep white matter chronic microvascular i schemic changes.No areas of brain edema or evidence of midline shift. Left vertebral atherosclerosis. The paranasal sinuses and mastoids are clear. The calvarium is intact. IMPRESSION: No acute intracranial abnormality.
[2023-12-03] MEDS: NA CHLORIDE 0.9% 1,000 ML IV SCH (21:00)
[2023-12-03] MEDS: FAMOTIDINE 20 MG TAB PO SCH (21:08)
[2023-12-03] MEDS: ATORVASTATIN 40 MG TAB PO SCH (21:08)
[2023-12-03] MEDS: METOPROLOL TAR 25 MG TAB PO SCH (21:09)
[2023-12-03] MEDS: DONEPEZIL HCL 5 MG TAB PO SCH (21:11)
--- NOTE | 2023-12-03 22:13 | HP ---
Date of Admission: 12/03/2023 Chief Complaint: Chest pain and problem with eye sites. History Of Present Illness: This 83-year-old pleasant male patient, who came into office today with above-mentioned problems. The patient reported that earlier before he came to office, he felt like wavy type of line out of his left eye, lasted for maybe about 5 to 10 minutes and then it got resolved. He also had some vague chest pain in the left upper chest, described as tightness type of feeling earlier today, lasted for 10 to 15 minutes and then got resolved. After he informed me about all these, decision was made to communicate with his medical receptionist assistant, Dr. Madison, who informed me that the patient recently had a stress test done which showed some abnormality and decision was made to admit him to the hospital and Dr. Madison is planning to do cardiac cath on him tomorrow. The patient is on chronic anticoagulation therapy with Eliquis and his last dose of Eliquis was this morning and we will not give any Eliquis tonight since Dr. Madison is planning to do cardiac cath procedure tomorrow sometime late morning. Review of Systems: Cardiovascular: As mentioned above. Eyes: As mentioned above. All other systems reviewed and negative. Allergies: NO KNOWN ALLERGIES. Medications: List reviewed. Past Medical History: Significant for hypertension, hyperlipidemia, probable coronary artery disease, carotid artery stenosis, hypothyroidism, gastroesophageal reflux disease, CKD 3b, chronic atrial fibrillation, vitamin D deficiency, vitamin B12 deficiency, hypomagnesemia, bladder cancer. Past Surgical History: Umbilical hernia repair, removal of bladder with neobladder in 2007, right shoulder surgery and bilateral knee replacement. Family History: Father had CO and hypertension. Mother had CO, brother has hypertension and hyperlipidemia. Social History: Negative for smoking and alcohol use. Physical Examination: Vital Signs: Height 5 feet 11 inches, weight 236 pounds, temperature 98.4, pulse 62, respiratory rate 17, blood pressure 158/81, oxygen saturation 97%. General: Awake, alert, oriented, not in distress. HEENT: Head atraumatic, normocephalic. Conjunctivae nonerythematous. Sclerae white. Mouth, no thrush or edema noted. Ears/Nose, no mass, lesion, discharge noted. Neck: Supple. No JVD, lymph nodes, bruit, thyromegaly noted. Lungs: Bilateral good equal air entry. Clear to auscultation. No rhonchi. No rales. Heart: Normal heart sounds, no murmur or gallop. Abdomen: Soft, bowel sounds normal. No guarding, rigidity, tenderness, mass, hepatosplenomegaly, distention, or bruit noted. Extremities: No leg edema. No calf tenderness. Skin: No rash, ulcer, cellulitis. Lymphatics: No lymph node enlargement in neck, supraclavicular, infraclavicular region. Neuro: No focal neurological deficit. Chest: Unremarkable. External Genitalia: Deferred. Rectal: Deferred. Laboratory Data: White count 8.4, hemoglobin 11.2, platelets 210. Sodium 140, potassium 4.2, chloride 110, bicarb 24, BUN 33, creatinine 1.63, glucose 90, estimated GFR 41. Liver function tests unremarkable. First troponin 96.9. Chest x-ray did not show any acute changes and CT scan of head was negative for any acute intracranial changes. Impression: 1. Unstable angina. 2. Carotid artery stenosis. 3. Hypertension. 4. Hyperlipidemia. 5. Hypothyroidism. 6. Chronic kidney disease, stage IIIB. 7. Atrial fibrillation, chronic. 8. Chronic anticoagulation therapy. Plan: We will go ahead and admit the patient to hospital for further evaluation and management of this problem. The patient is appropriate for inpatient and is expected to spend 2 midnights in hospital. The patient took his last dose of Eliquis this morning. We will not give any more Eliquis since he is planning to have cardiac cath tomorrow. We will go ahead and give aspirin 81 mg 2 tablets this evening. EKG did not show any acute changes. Chest x-ray will be done today. Cardiology consultation was requested from Dr. Madison and I have discussed details with him. We will keep him n.p.o. after midnight. For hyperlipidemia, continue his statin therapy which is atorvastatin 40 mg daily at bedtime. For hypertension, we will continue his antihypertensive medication. Monitor blood pressure if necessary. Adjust blood pressure medications. Details and plan of treatment discussed with the patient. I will see him tomorrow for followup. MANSOOR/MODL Voice ID: [id number] MTDD
[2023-12-04 04:39] LABS: Potassium 4.2 mEq/L (3.5-5.1)
[2023-12-04 04:47] LABS: Troponin High Sensitivity 86.8 pg/mL (<58.9)
[2023-12-04] MEDS: LEVOTHYROXINE SOD 0.05 MG TABLET PO SCH (05:04)
[2023-12-04] MEDS: MAGNESIUM OXIDE 400 MG TAB PO SCH (09:00)
[2023-12-04] MEDS: lisinopriL 10 MG TAB PO SCH (09:14)
[2023-12-04] MEDS: NA CHLORIDE 0.9% 1,000 ML IV SCH (10:00)
[2023-12-04] MEDS ORDERED: HEPA 1000U/500MLS 2,000 UNIT/1,000 ML BAG IV ONE (11:17)
[2023-12-04] MEDS ORDERED: LIDOCAINE 1% 20 ML MDV ONE (11:17)
--- NOTE | 2023-12-04 13:37 | PN ---
Date of Progress Note: 12/04/2023 Subjective: Patient was seen this morning for followup. No new complaints or problems reported by ijeoma schulz. He was sitting in chair. No chest pain, no shortness of breath overnight. Objective: Vital Signs: Reviewed. HEENT: Unremarkable. Lungs: Clear to auscultation. Heart: Sounds normal. Abdomen: Soft. Bowel sounds normal. No guarding, rigidity, tenderness, or distention. Extremities: No leg edema. Laboratory Data: Sodium 140, potassium 4.2, chloride 111, bicarb 26, BUN 29, creatinine 1.58, glucos e 100. Troponin 86.8. LDL 17, triglyceride 83, total cholesterol 83. CAT scan of the head was nega tive last night and chest x-ray was negative for any acute changes. Impression: 1.Unstable angina. 2.Carotid artery stenosis. 3.Hypertension. 4.Hyperlipidemia. 5.Impaired memory. 6.Atrial fibrillation. 7.Chronic anticoagulation therapy. Plan: The patient received IV fluid overnight. Creatinine was 1.63 upon admission and this morning it is 1.58. He is scheduled to have cardiac cath today. I will go ahead and continue IV fluid hydra tion. MANSOOR/MODL Voice ID: [id number] Report ID: [id number]
[2023-12-04] MEDS: NA CHLORIDE 0.9% 500 ML ONE (14:18)
[2023-12-04] MEDS ORDERED: MIDAZOLAM HCL 2 MG/2 ML INJ ONE (14:41)
[2023-12-04] MEDS ORDERED: FENTANYL CITR 100 MCG/2 ML ONE (14:41)
[2023-12-04] MEDS ORDERED: VERAPAMIL HCL 10 MG/4 ML VIAL IV ONE (14:41)
[2023-12-04] MEDS ORDERED: HEPARIN 10,000 UNIT/10 ML VIAL IV ONE (14:42)
[2023-12-04] MEDS ORDERED: HEPARIN 5000 UNIT/ML 1 ML VIAL ONE (14:42)
[2023-12-04] MEDS ORDERED: ATROPINE SULF 1 MG/10 ML SYR IV ONE (14:42)
[2023-12-04] MEDS ORDERED: CLOPIDOGREL 75 MG TABLET ONE (14:45)
[2023-12-04] MEDS ORDERED: TICAGRELOR 90 MG TABLET PO ONE (14:45)
[2023-12-04] MEDS ORDERED: ASPIRIN 325 MG TAB ONE (14:45)
[2023-12-04 16:40] VITALS: O2SAT 100
[2023-12-04] MEDS: CLOPIDOGREL 75 MG TABLET PO ONE (17:25)
[2023-12-04] MEDS: NA CHLORIDE 0.9% 0 ML ONE (18:35)
[2023-12-04] MEDS: FUROSEMIDE 20 MG/ 2ML VIAL IV ONE (18:40)
--- NOTE | 2023-12-04 20:04 | CON ---
Date of Consultation: 12/04/2023 Reason For Consultation: Chest pain. History Of Present Illness: An 83-year-old male with past medical history of hypertension, dyslipide jim, and carotid stenosis, presented to Dr. Joaquin's office complaining of typical chest pain in left u pper chest, describes as heaviness and tightness and advanced for about 10-15 minutes, radiate to lef t upper extremity. Chest pain is becoming more frequent and more intense since he presented to the e mergency room and I was consulted to evaluate this particular issue. Upon my evaluation, he was ches t pain-free. Past Medical History: As outlined above in the HPI. Medications: Refer reconciliation sheet for detailed list. Allergies: NO KNOWN DRUG ALLERGIES. Family History: No premature coronary artery disease or cancer. Social History: Does not smoke or drink. Does not use any drugs. Review of Systems: All systems reviewed are negative except as mentioned above in HPI. Physical Examination: Vital Signs: Reviewed. Head and Neck: Pupils are equal, reactive to light. Intact eye movements. No JVD. No cervical lym phadenopathy. Neck is supple. Thyroid is not enlarged. Lungs: Clear to auscultation bilaterally. No rhonchi, wheeze, or crackles. No accessory muscle use . Heart: Regular. No extra sounds. Abdomen: Soft, nontender. Bowel sounds positive. No organomegaly. No masses or hernia. No rigidi ty or rebound. Extremities: No edema, clubbing, or cyanosis. Intact pulses. Skin: No rash. Neurologic: Alert, awake, and oriented x3. No acute focal deficits appreciated. Investigations: Troponin 96, down to 86. BUN 29, creatinine 1.58. Hemoglobin 11.2. Assessment/recommendation: 1.Kcp-GV-tlkwxcmpv myocardial infarction, active chest pain with positive troponin. Keep n.p.o. Pl an for coronary angiogram today and continue baby aspirin. 2.Hypertension. Blood pressure is now controlled. Continue home medication. 3.Dyslipidemia. Continue Lipitor 40 mg at bedtime. Case discussed with Dr. Joaquin. SR/MODL Voice ID: [id number] Report ID: [id number]
--- NOTE | 2023-12-04 21:14 | OP ---
Date of Procedure: 12/04/2023 Surgeon: NICHOL CEVALLOS Procedure Performed: 1.Selective coronary angiogram. 2.Left heart catheterization. Indication: Fwu-GE-isiuawtub myocardial infarction. Access: Right radial artery 6-Sudanese, closed with TR band. Complications: None. Bleeding: Less than 50 mL. Anesthesia: Total sedation time was 30 minutes. Used fentanyl and Versed. Description Of Procedure: After risks, benefits, alternatives explained, the patient agreed to proce dure and signed informed consent. The patient was brought into cardiac catheterization laboratory, p repped and draped in usual sterile fashion. Then, I accessed right radial artery using pediatric livia ropuncture kit, placed 6-Sudanese Slender sheath and took 5-Sudanese [place] 4 catheter in the aortic root, crossed the aortic valve over the wire, measured LVEDP, pulled back, not recorded any gradient, then engaged the left main, took standard views, then RCA, took standard views, then removed the catheter and sheath and placed TR band with good hemostasis. Findings: 1.Left main is normal. 2.LAD: Proximal segment is normal. Mid segment diffusely diseased along heavily calcified 80% sten osis. Diagonal 1 branch that comes off has 90% stenosis, but is very small vessel. Rest of LAD is l arge and normal. 3.Left circumflex: Moderate sized with luminal regularities. 4.RCA: Large and aneurysmal and dominant. Distally, there is focal 60% stenosis, but still large l umen. 5.LVEDP elevated at 20 mmHg. Conclusion: 1.Severe mid LAD stenosis, heavily calcified, needs shockwave lithotripsy or atherectomy, then PCI. At this point, this will be performed at a higher level of care facility which we can arrange for as an outpatient. 2.Moderate coronary artery disease elsewhere. 3.Elevated LVEDP. Plan: If the patient is chest pain free by tomorrow on activity, he can be released to see me on Thu in the office and we will plan for doing this PCI with atherectomy at [facility] mid of next week . If the patient continues to be symptomatic, then the plan would be to keep him through the weekend and then transfer him early next week to [facility] and then do the procedure as an inpatient. SR/MODL Voice ID: [id number] Report ID: [id number]
[2023-12-05] MEDS: ASPIRIN EC 81 MG TAB PO SCH (09:49)
[2023-12-05] MEDS: CLOPIDOGREL 75 MG TABLET PO SCH (09:49)
--- NOTE | 2023-12-05 10:17 | DS ---
Date of Discharge: 12/05/2023 Disposition: Discharged to go home. Physical Examination: HEENT: Unremarkable. Lungs: Clear to auscultation. Heart: Sounds normal. Abdomen: Soft. Bowel sounds normal. No guarding, rigidity, tenderness, distention. Extremities: No leg edema. Laboratory Data: White count 8.4, hemoglobin 11.2, platelets 210. Initial chemistry: Sodium 140, p otassium 4.2, chloride 110, bicarb 24, BUN 33, creatinine 1.63, estimated GFR 41, glucose 90. Liver function test unremarkable. First troponin was 96.9, second one was 89.3, third one was 86.8. Lipid profile from yesterday: Triglycerides 83, total cholesterol 83, LDL 17, HDL 49. Yesterday's BUN wa s 29, creatinine 1.58. Today's chemistry result is pending. Hospital Course: This is an 83-year-old male patient, admitted to the hospital after he came into of [facility] with complaints of chest pain and problem with his eyesight. Please see dictated H and P for mo re information. The patient was admitted to the hospital after he was evaluated at office and Cardio logy consultation was obtained from Dr. Madison. Dr. Madison did cardiac cath on him yesterday and fou nd out that the patient's left main artery was normal and patent, had about 60% stenosis of distal RC A, and about 80% stenosis of mid LAD with 90% stenosis of first diagonal branch. Dr. Madison did not perform any intervention at our hospital because of high-risk nature of the intervention and in the e vent if there are any complications at our hospital, we will not be able to manage it at our hospital , where we have limited resources, so he has recommended further intervention in form of angioplasty and stent placement to be done at outside hospital, where there are more resources available. He als o informed me that the patient's LVEDP was elevated and recommended 1 dose of Lasix 20 mg IV. I was giving him IV fluid to protect his renal function because of baseline abnormality of his renal functi on and in anticipation of having cardiac cath, so after the cardiac cath procedure, IV fluid was disc ontinued and 20 mg Lasix IV x1 dose was ordered. Dr. Madison also recommended for the patient to disc ontinue his Eliquis and, as per his recommendation, loading dose of Plavix 300 mg was given yesterday and starting today the patient will receive Plavix 75 mg daily along with aspirin 81 mg daily. Ther e is no prior history of stroke related to atrial fibrillation. The patient is thinking about Watchm an procedure that Dr. Madison has suggested in the past, and I have encouraged him to communicate with Dr. Madison about it when he sees him. I will see him next week on Thursday morning, which is on 2023. At 8 o'clock in the morning, he will come to my office for followup and at 9 a.m., he will follow up with Dr. Madison and Dr. Madison will plan further outpatient procedure for him. Today, I did ambulate him in the hallway and I was walking with him, and he was able to make a whole makah without any symptoms of chest pain, and I have encouraged him that when he goes home until further i nstruction he should not do any exertion or any exercise. I have also asked him not to lift anything more than 2 pounds of weight in his right hand for 1 week. Final Diagnoses: 1.Unstable angina. 2.Coronary artery disease. 3.Carotid artery stenosis. 4.Hypertension. 5.Hyperlipidemia. 6.Hypothyroidism. 7.Chronic kidney disease stage 3B. 8.Atrial fibrillation, chronic. Discharge Medications And Instructions: 1.Continue all prior home medications except following changes: a.Stop Eliquis. b.Start hyjo-ssy-uxfjdvb aspirin 81 mg, take 1 tablet by mouth daily with food. c.Start Plavix 75 mg, take 1 tablet by mouth daily with food. 2.Do not exercise, avoid any exertion. 3.Do not carry any object heavier than 2 pounds in right hand for 1 week. 4.Follow up at my office at [address] Madison at 9 a.m. on 12/07/2023. MANSOOR/MODL Voice ID: [id number] Report ID: [id number]
[2023-12-05 10:26] LABS: Potassium 4.5 mEq/L (3.5-5.1)
[2023-12-05 11:20] VITALS: BP 137/71; TEMP 97.7
--- NOTE | 2023-12-07 11:07 | EKG ---
Test Date: 2023-12-03 Test Time: 16:26:38 Deputy Sheriff Lieutenant: Elizabet PEREZ MEASUREMENT RESULTS: Intervals: Rate: 58 MT: QRSD: 92 QT: 452 QTc: 443 [place]: P: MT: QRS: 8 T: -26 INTERPRETIVE STATEMENTS: Junctional rhythm with occasional premature ventricular complexes Cannot rule out Inferior infarct, age undetermined Abnormal ECG Compared to ECG 10/05/2023 15:28:08 Junctional rhythm now present Ventricular premature complex(es) now present Myocardial infarct finding now present Sinus rhythm no longer present Electronically Signed On 12-07-23 11:00:34 TUNNELLER by Dhruv Harper
== END 2023-12-05 11:15 | disposition home or self-care (01) | DRG 287 ==
LOC: 2ND 13:38 → OBSVTOIN 20:48
PROVIDERS: ADMIT Internal Medicine; ATTEND Internal Medicine
PROC: B2111ZZ Fluoroscopy of Multiple Coronary Arteries using Low Osmolar Contrast (ICD-10-PCS; principal; 2023-12-04)
PROC: 4A023N7 Measurement of Cardiac Sampling and Pressure, Left Heart, Percutaneous Approach (ICD-10-PCS; 2023-12-04)
DX: I25.110 Atherosclerotic heart disease of native coronary artery with unstable angina pectoris (principal); I48.20 Chronic atrial fibrillation, unspecified; E78.5 Hyperlipidemia, unspecified; E03.9 Hypothyroidism, unspecified; K21.9 Gastro-esophageal reflux disease without esophagitis; I65.29 Occlusion and stenosis of unspecified carotid artery; I12.9 Hypertensive chronic kidney disease with stage 1 through stage 4 chronic kidney disease, or unspecified chronic kidney disease; N18.32 Chronic kidney disease, stage 3b; Z85.51 Personal history of malignant neoplasm of bladder; Z79.01 Long term (current) use of anticoagulants; Z96.653 Presence of artificial knee joint, bilateral
CPT/HCPCS: 36415; 70450; 71046; 76937; 80048; 80053; 80061; 83735; 84484; 85025; 93005; 93458; 99152; 99153; C1893; G0378; G0379; J0461; J1644; J1940; J2001; J2250; J3010; J7030; J7040; Q9966

== ENCOUNTER 2024-01-06 22:41 | Inpatient (IN) | payer OTHER ==
[2024-01-06] MEDS ORDERED: METOCLOPRAMIDE 10 MG/2mL INJ ONE (23:19)
[2024-01-06] MEDS ORDERED: PANTOPRAZOLE 40 MG INJ ONE (23:19)
[2024-01-06] MEDS ORDERED: NA CHLORIDE 0.9% 250 ML ONE (23:20)
[2024-01-06 23:22] LABS: Absolute Eosinophils 0.3 K/uL (0-0.5); Absolute Monocytes 0.7 K/uL (0.1-1.3); Absolute Neutrophil 4.7 K/uL (1.8-8.0); Basophils % 0.6 % (0-1.3); Eosinophils % 4.4 % (0-4.4); Hemoglobin 7.9 g/dL (13.6-17.9); Lymphocytes % 14.9 % (15.3-44.8); MCH 32.1 pg (27.0-35.0); MCHC 32.8 g/dL (32.0-36.0); MCV 97.7 fL (80-100); MPV 7.2 fL (7.6-11.3); Neutrophils % 69.1 % (41.7-73.7); Nucleated Red Blood Cells % 0.1 % (0-0); Platelets 271 thou/uL (152-406); RBC Red Blood Cell Count 2.46 M/uL (4.33-5.43); Red Cell Distribution Width 14.9 % (12.1-15.2)
[2024-01-06 23:30] LABS: PT Prothrombin Time 13.5 SECONDS (9.5-12.5); Protime INR 1.23
[2024-01-06 23:44] LABS: Albumin 3.5 g/dL (3.4-5.0); Anion Gap 10.2 mEq/L (5.0-15.0); Bilirubin Direct 0.2 mg/dL (0-0.2); Bilirubin Indirect, Calculated 0.4 mg/dL (0.2-0.8); Bilirubin Total 0.6 mg/dL (0.2-1.0); Globulin 3.6 g/dL (2.3-3.5); Magnesium 1.7 mg/dL (1.6-2.4); Potassium 4.2 mEq/L (3.5-5.1); Protein, Total 7.1 g/dL (6.4-8.2)
[2024-01-07] MEDS ORDERED: DIPHENHYDRAMINE 25 MG TAB/CAP ONE (01:02)
[2024-01-07] MEDS ORDERED: ACETAMINOPHEN 500 MG TAB ONE (01:02)
[2024-01-07] MEDS ORDERED: FUROSEMIDE 20 MG/ 2ML VIAL ONE (01:03)
[2024-01-07] MEDS ORDERED: FAMOTIDINE 20 MG/2 ML VIAL IV ONE (01:03)
--- NOTE | 2024-01-07 02:00 | EDPHYS ---
Physician Documentation [facility] Name: Alpesh Alves Age: 83 yrs Sex: Male : 1940 Arrival Date: 01/06/2024 Time: 22:41 Bed 20 Private MD: Verito Joaquin C ED Physician Alonso Dee HPI: 01/05 22:56 This 83 yrs old Male presents to ER via Ambulatory with complaints of Bloody sp4 Stools, Shortness Of Breath, Abdominal Pain. 23:07 83-year-old male presents with report of bloody stool shortness of breath and also sp4 generalized weakness. Patient was admitted here 12/15/2023 through 12/20/2023 . Patient has had upper endoscopy by Dr. Danish Penn that has revealed reflux esophagitis grade A, distal esophagitis, small hiatal hernia without obstruction, mild patchy gastritis in antrum, multiple superficial acute benign ulcers in the antrum, ulcers clean-based without signs of bleeding, few localized erosions in the antrum. Overall patient was diagnosed with reflux of a generous, hiatal hernia, gastritis, acute gastric ulcer, gastric erosions.. 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 TO LEFT HAND; GERD; GERD; Hypertension; Hypertension; - PSHx: 22:51 bladder replaced d/t bladder cancer; bladder replaced d/t bladder cancer; Knee kd3 Replacement bilateral; Knee Replacement bilateral; shoulder replacement right; shoulder replacement right; Stented artery; - Immunization history:: Adult Immunizations up to date. - Social history:: Smoking status: Patient denies any tobacco usage or history of. - Family history:: not pertinent. ROS: 23:10 Constitutional: Negative for fever, chills, and weight loss, positive fatigue, positive sp4 bloody stools, positive shortness of breath 23:10 All other systems are negative, Exam: 23:10 Constitutional: This is a well developed, well nourished patient who is awake, alert, sp4 and in no acute distress. Head/Face: Normocephalic, atraumatic. Eyes: Pupils equal round and reactive to light, extra-ocular motions intact. Lids and lashes normal. Conjunctiva and sclera are not injected. Cornea within normal limits. Periorbital areas with no swelling, redness, or edema. ENT: Nares patent. No nasal discharge, no septal abnormalities noted. Tympanic membranes are normal and external auditory canals are clear. Oropharynx with no redness, swelling, or masses, exudates, or evidence of obstruction, uvula midline. Mucous membranes moist. Neck: Trachea midline, no thyromegaly or masses palpated, and no cervical lymphadenopathy. Supple, full range of motion without nuchal rigidity, or vertebral point tenderness. Chest/axilla: Normal chest wall appearance and motion. Nontender with no deformity. No lesions are appreciated. Cardiovascular: Regular rate and rhythm with a normal S1 and S2. No gallops, murmurs, or rubs. Normal PMI, no JVD. No pulse deficits. Respiratory: Lungs have equal breath sounds bilaterally, clear to auscultation and percussion. No rales, rhonchi or wheezes noted. No increased work of breathing, no retractions or nasal flaring. Abdomen/GI: Soft, with normal bowel sounds. No distension or tympany. No guarding or rebound. No evidence of tenderness throughout. Back: No spinal tenderness. No costovertebral tenderness. Male : Normal genitalia with no discharge or lesions. Reveals no blood, no melena, no maroon stools, no other abnormality on rectal exam Skin: Warm, dry with normal turgor. Normal color with no rashes, no lesions, and no evidence of cellulitis. MS/ Extremity: Pulses equal, no cyanosis. Neurovascular intact. Full, normal range of motion. Neuro: Awake and alert, GCS 15, oriented to person, place, time, and situation. Cranial nerves II-XII grossly intact. Motor strength 5/5 in all extremities. Sensory grossly intact. Psych: Awake, alert, with orientation to person, place and time. Behavior, mood, and affect are within normal limits 01/06 00:28 ECG was reviewed by the Attending Physician. EKG at 2234 reveals atrial fibrillation at sp4 the rate of 90. Prolonged QT. No ST elevation or depression Vital Signs: 01/05 22:49 BP 158 / 91; Pulse 68; Resp 23; Temp 97.9(O); Pulse Ox 97% on R/A; Weight 104.33 kg; kd3 Height 5 ft. 11 in. ; 23:00 BP 170 / 90; Pulse 86; Resp 21 S; Pulse Ox 98% on R/A; jw7 23:53 BP 144 / 69; Pulse 90; Resp 12 S; Pulse Ox 100% on R/A; jw7 01/06 01:00 BP 140 / 77; Pulse 78; Resp 16 S; Pulse Ox 97% on R/A; jw7 02:53 BP 133 / 86; Pulse 77; Resp 18; Pulse Ox 98% on R/A; vc1 01/05 22:49 Body Mass Index 32.08 (104.33 kg, 180.34 cm) kd3 [place] Coma Score: 01/05 23:10 Eye Response: spontaneous(4). Motor Response: obeys commands(6). Verbal Response: sp4 oriented(5). Total: 15. MDM: 22:44 Patient medically screened. sp4 01/06 00:51 Data reviewed: vital signs, nurses notes, old medical records, lab test result(s), EKG, sp4 radiologic studies, plain films. ED course: CLINICAL HISTORY: chest pains COMPARISON: None. TECHNIQUE: XR CHEST 1 VIEW 01/06/2024 10:44 PM CDT FINDINGS: The heart is mildly enlarged. There is mild diffuse interstitial prominence. There is no pleural effusion. There is no pneumothorax. Right shoulder arthroplasty was performed. IMPRESSION: Possible pulmonary edema.. 01/05 22:44 Order name: Basic Metabolic Panel; Complete Time: 00:29 sp4 01/05 22:44 Order name: CBC with Diff; Complete Time: 00:29 sp4 01/05 22:44 Order name: LFT's; Complete Time: 00:29 sp4 01/05 22:44 Order name: Magnesium; Complete Time: 00:29 sp4 01/05 22:44 Order name: NT PRO-BNP; Complete Time: 00:29 sp4 01/05 22:44 Order name: PT-INR; Complete Time: 00:29 sp4 01/05 22:44 Order name: Troponin HS; Complete Time: 00:29 sp4 01/05 22:46 Order name: Type And Screen sp4 01/06 00:32 Order name: PRBC sp4 01/06 00:35 Order name: ABO/RH typing EDMS 01/06 00:35 Order name: Antibody Screen EDMS 01/06 00:59 Order name: RBC Leukored Pheresis [facility] 01/05 22:44 Order name: XRAY Chest (1 view) [facility] 01/05 22:44 Order name: EKG; Complete Time: 22:44 4 01/06 01:20 Order name: CONS Physician Consult [facility] 01/05 22:44 Order name: Cardiac monitoring; Complete Time: 23:43 4 01/05 22:44 Order name: EKG - Nurse/Tech; Complete Time: 23:43 4 01/05 22:44 Order name: IV Saline Lock; Complete Time: 23: sp4 01/05 22:44 Order name: Labs collected and sent; Complete Time: 23: 4 01/05 22:44 Order name: O2 Per Protocol; Complete Time: 23: sp4 01/05 22:44 Order name: O2 Sat Monitoring; Complete Time: : sp4 EC:28 Rate is 90 beats/min. Rhythm is irregularly irregular, A fib. QRS [place] is Normal. QRS sp4 interval is normal. QT interval is prolonged. No Q waves. T waves are Normal. No ST changes noted. Clinical impression: No evidence of ischemia. Interpreted by me. Administered Medications: 01/05 23:25 Drug: metoCLOPramide IVP 10 mg IVP once; over 1 to 2 minutes Route: IVP; Site: right [address]; 01/06 02:57 Follow up: Response: No adverse reaction; Marked relief of symptoms [facility] 01/05 23:25 Drug: Pantoprazole IVP 80 mg IVP once Route: IVP; Site: right forearm; [facility] 01/06 02:56 Follow up: Response: Marked relief of symptoms 1 01/05 23:25 Drug: Pantoprazole IV 8 mg/hr IV at 25 ml/hr continuous; (Standard dilution is 80 mg in [facility] 250 mL NS) Route: IV; Rate: 25 ml/hr; Site: right forearm; 01/06 02:55 Follow up: IV Status: Infusion continued upon admission vc10 19: Drug: Acetaminophen PO 1000 mg PO once Route: PO; [facility] 02:55 Follow up: Response: No adverse reaction; Marked relief of symptoms vc10 19:21 Drug: diphenhydrAMINE PO 25 mg PO once Route: PO; jw7 02:55 Follow up: Response: No adverse reaction; Marked relief of symptoms vc1 01:22 Drug: Furosemide IVP 20 mg IVP once; give over 2 minutes Route: IVP; Site: left hand; jw7 02:55 Follow up: Response: No adverse reaction; Marked relief of symptoms vc1 01:22 Drug: Famotidine IVP 20 mg IVP once; dilute with 10 mL 0.9% NaCl; give over 2 minutes jw7 Route: IVP; Site: left hand; 02:55 Follow up: Response: No adverse reaction; Marked relief of symptoms vc1 Disposition Summary: 01/07/24 01:59 Hospitalization Ordered Notes: Hospitalization Status: Inpatient Admission sp4 Provider: Verito Joaquin Location: Telemetry/[facility] (Inpatient) sp4 Condition: Stable sp4 Problem: new sp4 Symptoms: have improved sp4 Bed/Room Type: Standard sp4 Room Assignment: 404(01/07/24 02:00) jb4 Diagnosis - Anemia, unspecified sp4 - Upper GI bleed, symptomatic anemia, elevated troponin sp4 Forms: - Medication Reconciliation Form sp4 - SBAR form sp4 - Leadership Thank You Letter sp4 Signatures: Dispatcher [employer] Magdi Araya RN RN jb4 Diane Alonso RN RN kd3 Carine Miranda RN RN jw7 Alonso Dee MD MD sp4 Estefany Carr RN vc1 Corrections: (The following items were deleted from the chart) 02:00 01:59 sp4 jb4
--- NOTE | 2024-01-07 02:00 | ER ---
Nurse's Notes [facility] Name: Alpesh Alves Age: 83 yrs Sex: Male : 1940 Arrival Date: 01/06/2024 Time: 22:41 Bed 20 Private MD: Verito Joaquin C Diagnosis: Anemia, unspecified;Upper GI bleed, symptomatic anemia, elevated troponin Presentation: 01/05 22:49 Chief complaint: Patient states: I had some heart stents placed recently and also had a kd3 GI bleed recently. Because of the plavix, i have been battling GI bleed. Yesterday i had my HGB checked and it was 7.8, then this afternoon i wiped after using the restroom and have blood on the toilet paper. In addition, i feel very SOB when i walk around. Coronavirus screen: Vaccine status: Patient reports receiving the 2nd dose of the covid vaccine. Ebola Screen: No symptoms or risks identified at this time. Initial Sepsis Screen: Does the patient meet any 2 criteria? No. Patient's initial sepsis screen is negative. Does the patient have a suspected source of infection? No. Patient's initial sepsis screen is negative. Risk Assessment: Do you want to hurt yourself or someone else? Patient reports no desire to harm self or others. Onset of symptoms was January 06, 2024. 22:49 Method Of Arrival: Ambulatory kd3 22:49 Acuity: DEE 3 kd3 Triage Assessment: 22:51 General: Appears uncomfortable, Behavior is calm, cooperative. Pain: Denies pain. GI: kd3 Reports rectal bleeding, bloody stool. 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 TO LEFT HAND; GERD; GERD; Hypertension; Hypertension; - PSHx: 22:51 bladder replaced d/t bladder cancer; bladder replaced d/t bladder cancer; Knee kd3 Replacement bilateral; Knee Replacement bilateral; shoulder replacement right; shoulder replacement right; Stented artery; - Immunization history:: Adult Immunizations up to date. - Social history:: Smoking status: Patient denies any tobacco usage or history of. - Family history:: not pertinent. Screenin:00 [facility] ED Fall Risk Assessment (Adult) History of falling in the last 3 months, jw7 including since admission No falls in past 3 months (0 pts) Confusion or Disorientation No (0 pts) Intoxicated or Sedated No (0 pts) Impaired Gait No (0 pts) Mobility Assist Device Used No (0 pt) Altered Elimination Yes (1 pt) Score/Fall Risk Level 0 - 2 = Low Risk Oriented to surroundings, Maintained a safe environment, Educated pt \T\ family on fall prevention, incl call for assistance when getting out of bed. Abuse screen: Denies threats or abuse. Denies injuries from another. Nutritional screening: No deficits noted. Tuberculosis screening: No symptoms or risk factors identified. Assessment: 22:50 General: Appears in no apparent distress. comfortable, Behavior is calm, cooperative. jw7 Pain: Denies pain. Neuro: Level of Consciousness is awake, alert, obeys commands, Oriented to person, place, time, situation. 22:50 Cardiovascular: Heart tones S1 S2 present Capillary refill < 3 seconds Clubbing of nail jw7 beds is absent JVD is absent Patient's skin is warm and dry. Respiratory: Airway is patent Trachea midline Respiratory effort is even, unlabored, Respiratory pattern is regular, symmetrical, Breath sounds with wheezes in right upper lobe, right middle lobe, right lower lobe, right posterior upper lobe, right posterior middle lobe and right posterior lower lobe. GI: Abdomen is round non-distended, Bowel sounds present X 4 quads. Abd is soft and non tender X 4 quads. Reports rectal bleeding, bloody stool. : No deficits noted. No signs and/or symptoms were reported regarding the genitourinary system. EENT: No deficits noted. No signs and/or symptoms were reported regarding the EENT system. Derm: Skin is intact, is healthy with good turgor, Skin is dry, Skin is normal, Skin temperature is warm. Musculoskeletal: Circulation, motion, and sensation intact. Range of motion: intact in all extremities. 23:54 Reassessment: Patient appears in no apparent distress at this time. No changes from jw7 previously documented assessment. Patient and/or family updated on plan of care and expected duration. Pain level reassessed. Patient is alert, oriented x 3, equal unlabored respirations, skin warm/dry/pink. 01/06 01:00 Reassessment: Patient appears in no apparent distress at this time. No changes from jw7 previously documented assessment. Patient and/or family updated on plan of care and expected duration. Pain level reassessed. Patient is alert, oriented x 3, equal unlabored respirations, skin warm/dry/pink. 02:00 Reassessment: Patient appears in no apparent distress at this time. No changes from vc1 previously documented assessment. Patient and/or family updated on plan of care and expected duration. Pain level reassessed. Patient is alert, oriented x 3, equal unlabored respirations, skin warm/dry/pink. 02:53 Reassessment: Patient appears in no apparent distress at this time. No changes from vc1 previously documented assessment. Patient and/or family updated on plan of care and expected duration. Pain level reassessed. Patient is alert, oriented x 3, equal unlabored respirations, skin warm/dry/pink. Vital Signs: 01/05 22:49 BP 158 / 91; Pulse 68; Resp 23; Temp 97.9(O); Pulse Ox 97% on R/A; Weight 104.33 kg; kd3 Height 5 ft. 11 in. ; 23:00 BP 170 / 90; Pulse 86; Resp 21 S; Pulse Ox 98% on R/A; jw7 23:53 BP 144 / 69; Pulse 90; Resp 12 S; Pulse Ox 100% on R/A; jw7 01/06 01:00 BP 140 / 77; Pulse 78; Resp 16 S; Pulse Ox 97% on R/A; jw7 02:53 BP 133 / 86; Pulse 77; Resp 18; Pulse Ox 98% on R/A; vc1 01/05 22:49 Body Mass Index 32.08 (104.33 kg, 180.34 cm) kd3 Jenifer Coma Score: 01/05 23:10 Eye Response: spontaneous(4). Motor Response: obeys commands(6). Verbal Response: sp4 oriented(5). Total: 15. ED Course: 22:00 Patient has correct armband on for positive identification. Bed in low position. Call jw7 light in reach. Provided Education on: Use of Call Light. 22:42 Patient arrived in ED. mr 22:42 Verito Joaquin MD is Private Physician. mr 22:43 Alonso Dee MD is Attending Physician. sp4 22:51 Triage completed. kd3 22:51 Arm band placed on. kd3 22:59 Carine Miranda, RN is Primary Nurse. jw7 23:00 Served as a demolition expert during rectal exam. jw7 23:14 Initial lab(s) drawn, by me, sent to lab. T\T\S collected, blood band applied to patient. jw7 Inserted saline lock: 22 gauge in right forearm, using aseptic technique. Blood collected. 23:26 XRAY Chest (1 view) In Process Unspecified. EDMS 23:26 Type And Screen Sent. [facility] 01/06 01:19 Inserted saline lock: 20 gauge in left hand, using aseptic technique. vc1 01:58 Verito Joaquin MD is Hospitalizing Provider. sp4 02:54 Patient admitted, IV remains in place. vc1 Administered Medications: 01/05 23:25 Drug: metoCLOPramide IVP 10 mg IVP once; over 1 to 2 minutes Route: IVP; Site: right [facility] forearm; 01/06 02:57 Follow up: Response: No adverse reaction; Marked relief of symptoms vc1 01/05 23:25 Drug: Pantoprazole IVP 80 mg IVP once Route: IVP; Site: right forearm; [facility] 01/06 02:56 Follow up: Response: Marked relief of symptoms vc1 01/05 23:25 Drug: Pantoprazole IV 8 mg/hr IV at 25 ml/hr continuous; (Standard dilution is 80 mg in [facility] 250 mL NS) Route: IV; Rate: 25 ml/hr; Site: right forearm; 01/06 02:55 Follow up: IV Status: Infusion continued upon admission vc1 01:21 Drug: Acetaminophen PO 1000 mg PO once Route: PO; [facility] 02:55 Follow up: Response: No adverse reaction; Marked relief of symptoms vc1 01:21 Drug: diphenhydrAMINE PO 25 mg PO once Route: PO; jw7 02:55 Follow up: Response: No adverse reaction; Marked relief of symptoms vc1 01:22 Drug: Furosemide IVP 20 mg IVP once; give over 2 minutes Route: IVP; Site: left hand; [facility] 02:55 Follow up: Response: No adverse reaction; Marked relief of symptoms vc1 01:22 Drug: Famotidine IVP 20 mg IVP once; dilute with 10 mL 0.9% NaCl; give over 2 minutes [facility] Route: IVP; Site: left hand; 02:55 Follow up: Response: No adverse reaction; Marked relief of symptoms vc1 Medication: 02:05 VIS not applicable for this client. jw7 Outcome: 01:59 Decision to Hospitalize by Provider. sp4 02:53 Admitted to Med/surg accompanied by tech, via wheelchair, room 404, with chart, Report vc1 called to faxed to 4th floor, called Sharon to let her know patient is on the way up 02:53 Condition: good 02:53 Instructed on the need for admit, 02:55 Patient left the ED. vc1 Signatures: Dispatcher [employer] EDMS LukeKristen, Reg Reg mr GavinDiane, RN RN kd3 Estefany Carr RN RN vc1 Carine Miranda RN RN jw7 Alonso Dee MD MD sp4 Corrections: (The following items were deleted from the chart) 01:22 01/05 22:50 Respiratory: Airway is patent Trachea midline Respiratory effort is even, jw7 unlabored, Respiratory pattern is regular, symmetrical, Breath sounds are clear bilaterally. jw7
[2024-01-07] MEDS ORDERED: ONDANSETRON 4 MG/2 ML VIAL IV PRN (02:34)
[2024-01-07] MEDS ORDERED: HYDRALAZINE HCL 20 MG/ML VIAL IV PRN (02:34)
[2024-01-07] MEDS ORDERED: ALBUTEROL 2.5 MG/3 ML NEB SOL NEB PRN (02:34)
[2024-01-07] MEDS ORDERED: MORPHINE 2 MG/ML SYR IV PRN (02:34)
[2024-01-07] MEDS: NA CHLORIDE 0.9% 250 ML ONE ×2 (02:41→11:10)
[2024-01-07] MEDS: D5 0.45 NS 1,000 ML IV SCH (03:13)
[2024-01-07 04:23] VITALS: BMI 31.1
[2024-01-07 04:23] LABS: Specific Gravity 1.007 (1.005-1.030); Sqamous Epithelial None Seen /HPF (None Seen); Urine Bacteria None Seen /HPF (<20); Urine Bilirubin NEGATIVE (Negative); Urine Blood Trace (Negative); Urine Clarity Turbid (Clear); Urine Color Colorless (Yellow); Urine Culture Reflex Order NOT NEEDED; Urine Glucose NEGATIVE (Negative); Urine Ketones NEGATIVE (Negative); Urine Microscopic Reflex YN ORDER UMIC; Urine Nitrite NEGATIVE (Negative); Urine Protein NEGATIVE (Negative); Urine RBC <5 /HPF (None Seen); Urine Urobilinogen Normal (Normal); Urine WBC Clump Rare /HPF (None Seen); Urine Yeast (Budding) Trace /HPF (None Seen)
[2024-01-07 07:35] LABS: Absolute Eosinophils 0.3 K/uL (0-0.5); Absolute Monocytes 0.7 K/uL (0.1-1.3); Absolute Neutrophil 3.8 K/uL (1.8-8.0); MCV 97.3 fL (80-100); Nucleated Red Blood Cells % 0.1 % (0-0)
[2024-01-07 07:38] LABS: Anion Gap 10.1 mEq/L (5.0-15.0); Magnesium 1.6 mg/dL (1.6-2.4); Potassium 4.1 mEq/L (3.5-5.1)
[2024-01-07 07:49] LABS: Troponin High Sensitivity 100.1 pg/mL (<58.9)
[2024-01-07] MEDS: INFLUENZA VACCINE (for 6+ mo) 0.5 ML DOSE IMVAC ONE (08:00)
[2024-01-07] MEDS: PANTOPRAZOLE INJ 80 MG in NA CHLORIDE 0.9% 250 ML IV SCH (08:53)
[2024-01-07] MEDS: METOPROLOL TAR 25 MG TAB PO SCH (08:54)
[2024-01-07 10:43] LABS: RBC Red Blood Cell Count 2.65 M/uL (4.33-5.43)
[2024-01-07 10:44] LABS: Basophils % 0.6 % (0-1.3); Eosinophils % 4.8 % (0-4.4); Hematocrit 25.8 % (39.6-49.0); Hemoglobin 8.6 g/dL (13.6-17.9); Lymphocytes % 16.8 % (15.3-44.8); MCH 32.4 pg (27.0-35.0); MCHC 33.3 g/dL (32.0-36.0); MPV 7.4 fL (7.6-11.3); Monocytes % 12.7 % (3.3-12.3); Neutrophils % 65.1 % (41.7-73.7); Platelets 246 thou/uL (152-406)
--- NOTE | 2024-01-07 12:04 | P.CNS ---
Date of Consult: 01/07/24 Chief Complaint: GI bleed with history of CAD and PCI History of Present Illness: Patient with PMH of CAD s/p PCI of LAD on 11/2023, presented with abdominal pain and bleeding, this is the second time patient present with GI bleed, on last visit he had an endoscopy done that shown esophagitis, gastritis and clean ulcer, patient has been complaint with medications and denies any chest pain, no SOB, no syncope. Allergies aspirin Adverse Reaction (Verified 12/16/23 03:42) GI bleeding Home Medications: RX: Metoprolol Tartrate 12.5 mg PO BID 06/18/20 RX: Atorvastatin Calcium [Lipitor] 40 mg PO BEDTIME 12/03/23 RX: Famotidine [Pepcid] 40 mg PO BEDTIME 12/03/23 RX: Levothyroxine [Synthroid*] 50 mcg PO [id number] 12/03/23 RX: Magnesium Oxide [Magnesium] 400 mg PO DAILY 12/03/23 RX: Aspirin [Aspirin EC] 81 mg PO DAILY 12/15/23 RX: Clopidogrel Bisulfate [Plavix*] 75 mg PO DAILY 12/15/23 RX: Losartan Potassium 25 mg PO DAILY 12/15/23 Pantoprazole [Protonix Tab] 40 mg PO Q12H #60 tab 12/20/23 - Past Medical/Surgical History Diabetic: No -: Afib -: HTN -: GERD -: h/o bladder cancer -: sneha-bladder/ rebuilt from intestion -: hernia repair -: bilateral knee replacement -: R shoulder repair Psychosocial/ Personal History: Patient lives at home alone. - Family History Mother Medical History: Heart disease Father Medical History: Heart disease brother Medical History: Other (see notes) - Social History Smoking Status: Unknown if ever smoked Alcohol use: No CD- Drugs: No Caffeine use: No Place of Residence: Home Review of Systems 10-point ROS is otherwise unremarkable Physical Examination Temp Pulse Resp BP Pulse Ox 97.3 F 66 16 157/77 H 96 01/07/24 08:00 01/07/24 08:54 01/07/24 08:00 01/07/24 08:54 01/07/24 08:00 General: Alert, Oriented x3 Neck: Supple Respiratory: Clear to auscultation bilaterally Cardiovascular: No edema, Normal S1 S2 Gastrointestinal: Normal bowel sounds Laboratory Data (last 24 hrs) 01/06/24 01/06/24 01/06/24 23:14 23:14 23:14 WBC 6.80 Hgb 7.9 L Hct 24.0 L Plt Count 271 PT 13.5 H INR 1.23 Sodium 142 Potassium 4.2 BUN 31 H Creatinine 1.62 H Glucose 134 H Magnesium 1.7 Total Bilirubin 0.6 AST 20 ALT 23 Alkaline Phosphatase 103 - Problems (1) CAD (coronary artery disease) Current Visit: Yes Status: Acute Plan: Patient with recent PCI of the LAD, patient will need DAPT even if he is having GI bleed. At least continue Plavix 75 mg daily. ok to stop ASA at this time since it has been 2 months since stent placement Continue Lipitor 40 mg daily (2) Atrial fibrillation and flutter Current Visit: No Status: Chronic Plan: plan is for outpatient evaluation for watchman procedure. (3) HTN (hypertension) Current Visit: No Status: Chronic Plan: Continue lopressor 12.5 mg po BID Continue Losartan 25 mg daily Qualifiers:
--- NOTE | 2024-01-07 14:17 | RAD REPORT ---
EXAM DESCRIPTION: RAD - Chest Single View - 01/06/2024 11:24 pm CLINICAL HISTORY: Chest pains COMPARISON: None. TECHNIQUE: XR CHEST 1 VIEW 01/06/2024 10:44 PM CDT FINDINGS: The heart is mildly enlarged. There is mild diffuse interstitial prominence. There is no p leural effusion. There is no pneumothorax. Right shoulder arthroplasty was performed. IMPRESSION: Possible pulmonary edema. Electronically signed by: Alonso Sanchez MD 01/06/2024 11:45 PM CDT Due to temporary technical issues with the PACS/Fluency reporting system, reports are being signed by the in house radiologists without review as a courtesy to insure prompt reporting. The interpreting radiologist is fully responsible for the content of the report.
--- NOTE | 2024-01-07 14:23 | EKG ---
Test Date: 2024-01-06 Test Time: 22:33:01 Legal Services Manager: VINITA MEASUREMENT RESULTS: Intervals: Rate: 0 RI: QRSD: 0 QT: 0 QTc: 0 [place]: P: RI: QRS: 0 T: 0 INTERPRETIVE STATEMENTS: No QRS complexes found, no ECG analysis possible Compared to ECG 12/03/2023 16:26:38 Junctional rhythm no longer present Ventricular premature complex(es) no longer present Myocardial infarct finding no longer present Electronically Signed On 01-07-24 14:22:49 CDT by Blayne Madison
--- NOTE | 2024-01-07 14:23 | EKG ---
Test Date: 2024-01-06 Test Time: 22:34:56 Recovery Manager: VINITA MEASUREMENT RESULTS: Intervals: Rate: 90 [place]: QRSD: 82 QT: 382 QTc: 467 [place]: P: VA: QRS: 26 T: 1 INTERPRETIVE STATEMENTS: Atrial fibrillation Nonspecific T wave abnormality, probably digitalis effect Prolonged QT Abnormal ECG Compared to ECG 01/06/2024 22:33:01 T-wave abnormality now present Prolonged QT interval now present Electronically Signed On 01-07-24 14:22:48 CDT by Blayne Madison
[2024-01-07] MEDS: MAGNESIUM CITRATE 300 ML BOT PO ONE (15:29)
[2024-01-07] MEDS: GOLYTELY 4000 ML PO ONE (15:29)
[2024-01-07] MEDS: METOCLOPRAMIDE 10 MG/2mL INJ IV SCH (15:29)
[2024-01-07 18:16] LABS: Hematocrit 33.6 % (39.6-49.0); Hemoglobin 11.2 g/dL (13.6-17.9)
--- NOTE | 2024-01-07 21:46 | HP ---
Date of Admission: 01/07/2024 Chief Complaint: Abdominal pain, rectal bleeding, and shortness of breath. History Of Present Illness: This is an 83-year-old pleasant male patient, who came into emergency room with above-mentioned complaints and after he was evaluated in the ER, he was admitted to the hospital with symptomatic anemia problem. This patient had coronary artery angioplasty with stent placement during later part of November of this year, so approximately 3 to 4 weeks ago, he had this procedure done by Dr. Madison and since that time, he has been on aspirin and Plavix. End of last month, he was admitted to the hospital and he was admitted with upper GI bleeding problem and at that time, he had EGD done by Dr. Penn, which showed small hiatal hernia, esophagitis, mild gastritis in gastric antrum with 4 small 2 to 4 mm gastric ulcers also in gastric antrum and few gastric erosion in gastric antrum area. During the last hospital admission, the patient did not require any blood transfusion, but he was on IV Protonix and subsequently he was discharged to go home and dentist, Dr. Madison wanted him to be back on his aspirin and Plavix which was restarted during last hospital admission and he continued to take this medications. Outpatient hemoglobin that was done just few days ago was 7.7, but the patient was asymptomatic and did not have any signs or symptoms of any GI bleeding at that time, so we decided at that time for the patient to go ahead and seek medical attention if he has any such symptoms and he was advised to take iron tablets as prescribed. Our plan was to monitor him closely on an outpatient basis and this was according to appointment this week at the office. Unfortunately, yesterday evening, he ends up having abdominal pain with blood in stool and shortness of breath and denies any chest pain. He comes to the emergency room with this. After he was evaluated, he was admitted to the hospital. Allergies: NO KNOWN ALLERGIES. Medications: Aspirin 81 mg daily, clopidogrel 75 mg daily, atorvastatin 40 mg daily at bedtime, gabapentin 100 mg 2 times a day, levothyroxine 50 mcg daily, losartan 25 mg daily, metoprolol 25 mg takes half a tablet 2 times a day, magnesium oxide 400 mg daily, rivastigmine patch 4.6 mg daily, pantoprazole 40 mg 2 times a day, and iron tablet 65 mg 2 times a day. Review of Systems: Respiratory: As mentioned above. GI: As mentioned above. All other systems reviewed and negative. Past Medical History: Significant for hypertension, hyperlipidemia, coronary artery disease, gastroesophageal reflux disease, gastric ulcer, upper GI bleeding recently, hypothyroidism, chronic kidney disease stage IIIB, vitamin B12 deficiency anemia, vitamin D deficiency, hypomagnesemia, iron deficiency anemia, atrial fibrillation, hypothyroidism. Past Surgical History: Hernia repair, removal of bladder with neobladder in 2007, right shoulder surgery, bilateral knee replacement, and coronary artery angioplasty with stent placement in November 2023. Family History: Father , had [place] and hypertension. Mother , had [place]. Brother has hypertension and hyperlipidemia. Social History: Negative for smoking and alcohol use. Physical Examination: Vital Signs: Temperature 97.8, pulse 75, respiratory rate 16, blood pressure 145/76, oxygen saturation 98%. Height 5 feet 11 inches, weight 230 pounds. General: Awake, alert, oriented, not in distress. HEENT: Head atraumatic, normocephalic. Conjunctivae nonerythematous. Sclerae white. Mouth, no thrush or edema noted. Ears/Nose, no mass, lesion, discharge noted. Neck: Supple. No JVD, lymph nodes, bruit, thyromegaly noted. Lungs: Bilateral good equal air entry. Clear to auscultation. No rhonchi. No rales. Heart: Normal heart sounds, no murmur or gallop. Abdomen: Soft, bowel sounds normal. No guarding, rigidity, tenderness, mass, hepatosplenomegaly, distention, or bruit noted. Extremities: No leg edema. No calf tenderness. Skin: No rash, ulcer, cellulitis. Lymphatics: No lymph node enlargement in neck, supraclavicular, infraclavicular region. Neuro: No focal neurological deficit. Chest: Unremarkable. External Genitalia: Deferred. Rectal: Deferred. Laboratory Data: White count 6.8, hemoglobin 7.9. Sodium 142, potassium 4.2, chloride 112, bicarb 24, BUN 31, creatinine 1.62, glucose 134. Liver function tests normal. Troponin 91. ProBNP 2494. Urinalysis negative. Impression: 1. Acute blood loss anemia. 2. Iron deficiency anemia, due to chronic GI blood loss. 3. Gastric ulcer with bleeding. 4. Gastroesophageal reflux disease. 5. Coronary artery disease. 6. Chronic anti-platelet therapy. 7. Chronic atrial fibrillation. 8. Hypertension. 9. Hyperlipidemia. 10. Chronic kidney disease stage IIIB. 11. Hypothyroidism. 12. Vitamin D deficiency. 13. Vitamin B12 deficiency. Plan: We will go ahead and admit the patient to hospital for further evaluation and management of this problem. The patient is appropriate for inpatient and is expected to spend 2 midnights in hospital. When I saw him this morning, he was getting his first unit of PRBC blood transfusion and my plan is to give him 2 units of PRBC blood transfusion and then get post transfusion hemoglobin monitoring. I have requested consultation from package wrapper, Dr. Penn, as well as dentist for anti-platelet management. For his coronary artery disease, we will continue his metoprolol. We will not give any anti-platelet therapy at this point and when to restart such therapy will depend on dentist and GI evaluation. For hyperlipidemia, we will restart his statin therapy per order. For hypothyroidism, start levothyroxine and no need for further intervention. IV Protonix was started and details on plan of treatment discussed with the patient. I will see him tomorrow for followup. MANSOOR/MODL Voice ID: [id number] [email or web address]
[2024-01-08 07:10] LABS: Absolute Eosinophils 0.3 K/uL (0-0.5); Absolute Lymphocytes (CBC) 1.3 K/uL (0.7-4.9); Absolute Monocytes 0.8 K/uL (0.1-1.3); Absolute Neutrophil 4.7 K/uL (1.8-8.0); Basophils % 0.5 % (0-1.3); Eosinophils % 3.7 % (0-4.4); Hematocrit 31.2 % (39.6-49.0); Hemoglobin 10.4 g/dL (13.6-17.9); Lymphocytes % 18.3 % (15.3-44.8); MCH 31.8 pg (27.0-35.0); MCHC 33.3 g/dL (32.0-36.0); MCV 95.6 fL (80-100); MPV 7.8 fL (7.6-11.3); Monocytes % 11.2 % (3.3-12.3); Neutrophils % 66.3 % (41.7-73.7); Nucleated Red Blood Cells % 0.1 % (0-0); Platelets 264 thou/uL (152-406); RBC Red Blood Cell Count 3.26 M/uL (4.33-5.43); Red Cell Distribution Width 15.7 % (12.1-15.2)
[2024-01-08] MEDS: CLOPIDOGREL 75 MG TABLET PO SCH (07:56)
[2024-01-08] MEDS ORDERED: ALBUTEROL 2.5 MG/3 ML NEB SOL NEB PRN (11:58)
[2024-01-08] MEDS: Ringers Lactate 1,000 ML IV ONE (13:32)
[2024-01-08] MEDS: EPINEPHRINE 1 MG/ML VIAL ONE (13:32)
[2024-01-08] MEDS ORDERED: SIMETHICONE 40 MG/ 0.6 ML ONE (13:42)
[2024-01-08] MEDS ORDERED: LIDOCAINE 1% MPF 5 ML VIAL ONE (14:34)
[2024-01-08] MEDS ORDERED: propofoL 200 MG/20 ML VIAL IV ONE (14:34)
[2024-01-08] MEDS ORDERED: INFLUENZA VACCINE (for 6+ mo) 0.5 ML DOSE IMVAC ONE (15:00)
[2024-01-08 16:01] VITALS: O2SAT 99
[2024-01-08 16:33] VITALS: BP 147/82; TEMP 97.3
--- NOTE | 2024-01-09 22:10 | CON ---
Date of Consultation: 01/08/2024 Reason For Consultation: GI bleed with hematochezia, melena, and iron-deficiency anemia. History Of Present Illness: The patient is an 83-year-old white male with history of hypertension, c oronary artery disease, status post PCI of the left anterior descending on December 08, 2003, with ca rdiac stent, subsequently on aspirin and Plavix. Subsequent to his cardiac cath, the patient develop ed pneumonia, which may be the source of his shortness of breath he was admitted with. He also has h ematochezia and some lower abdominal pain it appears. He had a prior EGD that appears approximately a month or 2 ago, which showed a small hiatal hernia, esophagitis, gastritis in the antrum with 4 sma ll 2-4 mm gastric ulcers in the antrum and a few gastric erosions in the antrum as well. Due to his recent cardiac stent on December 08, he has been on aspirin and Plavix, which he will need to keep his stent patent and avoid any type of cardiac event. Medications: Include aspirin, Plavix, Lipitor, gabapentin, levothyroxine, losartan, metoprolol, magn esium, rivastigmine patch, Protonix, iron tablets. Allergies: NKDA. Social History: He is . No tobacco or alcohol. Family History: Father due to myocardial infarction. Mother due to myocardi al infarction. Brother is alive with hypertension, hyperlipidemia. Past Medical History: Significant for hypertension, hyperlipidemia, coronary artery disease, reflux disease, gastric ulcer, upper GI bleeding, hypothyroidism, chronic kidney disease, stage IIIB, vitami n B12 deficiency, vitamin D deficiency, hypomagnesemia, iron-deficiency anemia, atrial fibrillation, hypothyroidism. Surgical History: Hernia repair, removal of bladder with neobladder in 2007, right shoulder surgery, bilateral knee replacement, coronary artery angioplasty, stent placement in November 2023. Review of Systems: The patient has hematochezia. He also notes melena. He had shortness of breath. He has some lower abdominal pain. He denies depression, anxiety, some chest pain, shortness of breath, seizure, syncop e, muscle aches, joint aches, backaches, hematemesis, coffee-grounds emesis, hemoptysis, epistaxis, h ematuria, dysuria, polydipsia, or other. Physical Examination: Vital Signs: The patient is 5 feet 11 inches, 230 pounds, BMI of 32.1 kg/m2, temperature of 97.3 deg kennedi Fahrenheit, pulse rate 96, respiratory rate 16, blood pressure 147/82, O2 saturation 99%. General: He is an obese male, lying in bed, no acute distress. HEENT: Normocephalic, atraumatic. Anicteric. Pupils equal, round, and reactive to light. Extraocu lar movements are intact. Oropharynx is clear. Neck: Supple. No masses. Respirations: Clear to auscultation bilaterally. Cardiac: Regular rate and rhythm. Gastrointestinal: Positive bowel sounds. Soft, nontender, nondistended. No hepatosplenomegaly. Extremities: No clubbing, cyanosis, or edema. 2+ pulses. Neuro x3. Grossly nonfocal. 5/5 motor sensation to light touch. Laboratory Data: The patient has a white count of 7.1, hemoglobin of 10.4, hematocrit 31, MCV of 96, platelet count of 264, polys of 66%, lymphocytes 18%, monocytes 11%, eosinophils 4%. PT of 13.5, IN R of 1.23. The patient yesterday had a sodium 143, potassium 4.1, chloride 112, bicarb 25, BUN of 31 , creatinine of 1.5, glucose 97, calcium 9.1, magnesium 1.6, total bilirubin 0.6, direct bilirubin 0. 2, AST of 20, ALT 23, alkaline phosphatase 103. Troponin I is elevated at 91 and 100 respectively. B type natriuretic peptide is elevated 2494. Total protein 7.1, albumin 3.5, globulin elevated 3.6. UA showed some trace blood, trace yeast, otherwise negative. Chest x-ray revealed possible pulmonar y edema. Heart is mildly enlarged. Impression: 1.GI bleed with hematochezia, melena, on Plavix and aspirin with a recent cardiac stent on December 08, 2023. The patient also has been on outpatient iron tablets for his iron-deficiency anemia. 2.Iron-deficiency anemia with acute blood loss. 3.Anemia with hemoglobin of 7.9, up to 10.4 with transfusion. 4.History of hypertension, coronary artery disease, status post percutaneous coronary of left anteri or descending on December 08, 2023, cardiac stent, history of atrial fibrillation, gastric reflux dis ease, gastric ulcer, upper GI bleed, hypothyroidism, chronic kidney disease, stage IIIB, B12 deficien cy, vitamin D deficiency, magnesium deficiency and iron deficiency. Recommendations: 1.Continue PPI therapy. 2.IV fluids and resuscitation. 3.EGD and colonoscopy. 4.Serial H and H, and transfuse p.r.n. MEHUL/KARMEN Voice ID: [id number] Report ID: [id number]
== END 2024-01-08 17:36 | disposition home or self-care (01) | DRG 368 ==
LOC: ER 22:41 → ERHOLD 01-07 01:16 → 4TH 01-07 02:16
PROVIDERS: ADMIT Internal Medicine; ATTEND Internal Medicine
PROC: 30233N1 Transfusion of Nonautologous Red Blood Cells into Peripheral Vein, Percutaneous Approach (ICD-10-PCS; 2024-01-07)
PROC: 0DJD8ZZ Inspection of Lower Intestinal Tract, Via Natural or Artificial Opening Endoscopic (ICD-10-PCS; principal; 2024-01-08 14:00)
PROC: 0DJ08ZZ Inspection of Upper Intestinal Tract, Via Natural or Artificial Opening Endoscopic (ICD-10-PCS; 2024-01-08 14:00)
DX: K21.01 Gastro-esophageal reflux disease with esophagitis, with bleeding (principal); K25.4 Chronic or unspecified gastric ulcer with hemorrhage; K29.71 Gastritis, unspecified, with bleeding; I48.92 Unspecified atrial flutter; I48.20 Chronic atrial fibrillation, unspecified; D62 Acute posthemorrhagic anemia; K64.8 Other hemorrhoids; I12.9 Hypertensive chronic kidney disease with stage 1 through stage 4 chronic kidney disease, or unspecified chronic kidney disease; N18.32 Chronic kidney disease, stage 3b; D63.1 Anemia in chronic kidney disease; D50.9 Iron deficiency anemia, unspecified; E55.9 Vitamin D deficiency, unspecified; E53.8 Deficiency of other specified B group vitamins; I25.10 Atherosclerotic heart disease of native coronary artery without angina pectoris; R79.89 Other specified abnormal findings of blood chemistry; Z96.0 Presence of urogenital implants; Z88.6 Allergy status to analgesic agent; Z79.82 Long term (current) use of aspirin; Z79.02 Long term (current) use of antithrombotics/antiplatelets; Z85.51 Personal history of malignant neoplasm of bladder; Z79.890 Hormone replacement therapy; Z96.653 Presence of artificial knee joint, bilateral; Z96.611 Presence of right artificial shoulder joint; Z79.899 Other long term (current) drug therapy
CPT/HCPCS: 36415; 71045; 80048; 80076; 81001; 83735; 83880; 84484; 85014; 85018; 85025; 85610; 86850; 86900; 86901; 86920; 93005; 99285; C9113; J0171; J1940; J2001; J2704; J2765; J7050; J7120; J7799; P9016

== ENCOUNTER 2024-04-24 10:57 | Emergency (ER) | payer OTHER ==
[2012-05-25 15:25] VITALS: BP 130/90
--- NOTE | 2024-04-24 11:22 | ER ---
Nurse's Notes [facility] Name: Alpesh Alves Age: 83 yrs Sex: Male : 1940 Arrival Date: 04/24/2024 Time: 10:57 Bed IW4 Private MD: Diagnosis: Epistaxis Presentation: 04/24 11:11 Chief complaint: Patient states: Had a nose bleed last week, rhino rocket x 2 placed to ph R nare by ENT, last night while sleeping bleeding started again. Coronavirus screen: Vaccine status: Patient reports receiving the 2nd dose of the covid vaccine. Ebola Screen: No symptoms or risks identified at this time. Initial Sepsis Screen: Does the patient meet any 2 criteria? No. Patient's initial sepsis screen is negative. Does the patient have a suspected source of infection? No. Patient's initial sepsis screen is negative. Risk Assessment: Do you want to hurt yourself or someone else? Patient reports no desire to harm self or others. Onset of symptoms was April 24, 2024. 11:11 Method Of Arrival: Ambulatory ph 11:11 Acuity: DEE 4 ph Triage Assessment: 11:15 General: Appears in no apparent distress. Behavior is calm, cooperative. Pain: Denies ph pain. EENT: Nares rhino rocket x 2 to R nare, not actively bleeding at this time. 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 - Infectious Disease History:: Denies. - Social history:: Smoking status: Patient denies any tobacco usage or history of. Screenin:15 [facility] ED Fall Risk Assessment (Adult) History of falling in the last 3 months, ph including since admission No falls in past 3 months (0 pts) Confusion or Disorientation No (0 pts) Intoxicated or Sedated No (0 pts) Impaired Gait No (0 pts) Mobility Assist Device Used No (0 pt) Altered Elimination No (0 pt) Score/Fall Risk Level 0 - 2 = Low Risk Oriented to surroundings, Maintained a safe environment, Hourly rounding (assess needs \T\ fall precautionary measures) done. Abuse screen: Denies threats or abuse. Denies injuries from another. Nutritional screening: No deficits noted. Tuberculosis screening: No symptoms or risk factors identified. Vital Signs: 11:12 BP 138 / 78; Pulse 65; Resp 18; Temp 98; Pulse Ox 99% on R/A; ph ED Course: 11:00 Patient arrived in ED. ph 11:02 [facility] New[facility]C [facility] kb 11:02 Manolo Powell MD is Attending Physician. kb 11:14 Triage completed. ph 11:14 Arm band placed on left wrist. ph 11:15 Patient has correct armband on for positive identification. ph 11:15 No provider procedures requiring assistance completed. Patient did not have IV access ph during this emergency room visit. 11:22 Erica Reese MD is Referral Physician. kb 11:25 Debra Hernandez, RN is Primary Nurse. ph Administered Medications: No medications were administered Medication: 11:20 VIS not applicable for this client. ph Outcome: 11:21 Discharge ordered by . kb 11:25 Patient left the ED. ph 11:25 Discharged to home ambulatory, with significant other, ph 11:25 Condition: good 11:25 Discharge instructions given to patient, Instructed on discharge instructions, follow up and referral plans. Demonstrated understanding of instructions, follow-up care, Signatures: Amanda Newberry FNP-C FNP-Ckb Hall, Patricia, RN RN ph
--- NOTE | 2024-04-24 11:22 | EDPHYS ---
Physician Documentation [facility] Name: Alpesh Alves Age: 83 yrs Sex: Male : 1940 Arrival Date: 04/24/2024 Time: 10:57 Bed IW4 Private MD: ED Physician Manolo Powell HPI: 04/24 11:37 This 83 yrs old Male presents to ER via Ambulatory with complaints of Nose Bleed. kb 11:37 Pt is an 83 year old male who presents for nosebleed. States he was here 2 days ago, Dr serg Reese came in and placed a balloon in nostril to stop the bleeding and told him to follow up in office next week. States he believes he pulled it in his sleep because it was bleeding this morning. Denies any other symptoms. . 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 - Infectious Disease History:: Denies. - Social history:: Smoking status: Patient denies any tobacco usage or history of. ROS: 11:35 Constitutional: As per HPI kb Exam: 11:35 Constitutional: This is a well developed, well nourished patient who is awake, alert, kb and in no acute distress. Head/Face: Normocephalic, atraumatic. ENT: Moist Mucous membranes Cardiovascular: Regular rate Respiratory: Respirations even and unlabored. No increased work of breathing. Talking in full sentences Skin: Warm, dry with normal turgor. Normal color. MS/ Extremity: Pulses equal, no cyanosis. Neurovascular intact. Full, normal range of motion. Neuro: Awake and alert, GCS 15, oriented to person, place, time, and situation. Moves all extremities. Normal gait. 11:35 ENT: Nose: rhinorocket in place in right nare, large blood clot noted. No active bleeding, Vital Signs: 11:12 BP 138 / 78; Pulse 65; Resp 18; Temp 98; Pulse Ox 99% on R/A; ph MDM: 11:03 Patient medically screened. kb 11:36 Differential diagnosis: foreign body - resolved, foreign body - unresolved, epistaxis kb r/t trauma, spontaneous epistaxis. Data reviewed: vital signs, nurses notes. Counseling: I had a detailed discussion with the patient and/or guardian regarding the historical points, exam findings, and any diagnostic results supporting the discharge/admit diagnosis, the need for outpatient follow up, an ENT specialist, to return to the emergency department if symptoms worsen or persist or if there are any questions or concerns that arise at home. ED course: Pt educated to leave clot and rhinorocket in place until follow up with Dr Reese. Educated on return precautions. Verbal understanding received. . Administered Medications: No medications were administered Disposition Summary: 04/24/24 11:21 Discharge Ordered Notes: Location: Home kb Condition: Stable kb Diagnosis - Epistaxis kb Followup: kb - With: Emergency Department - When: As needed - Reason: Worsening of condition Followup: kb - With: Private Physician - When: 2 - 3 days - Reason: Recheck today's complaints, Continuance of care, Re-evaluation by your physician Followup: kb - With: Erica Reese MD - When: 2 - 3 days - Reason: Recheck today's complaints, Continuance of care, Re-evaluation by your physician Discharge Instructions: - Discharge Summary Sheet kb - Nosebleed, Adult, [id number] kb Forms: - Medication Reconciliation Form kb - Antibiotic Education kb - Prescription Opioid Use kb - Patient Portal Instructions kb - Leadership Thank You Letter kb Addendum: 04/25/2024 11:49 I was immediately available for consultation during this patient's visit. I did not e c2 personally see the patient or discuss the patient with the JADE. . Signatures: Amanda Newberry, Debra Nance, RN RN ph Manolo Powell MD MD ec2
== END 2024-04-24 11:25 | disposition home or self-care (01) ==
LOC: ER 10:57
DX: R04.0 Epistaxis (principal)
CPT/HCPCS: 99282

== ENCOUNTER 2024-04-24 20:04 | Emergency (ER) | payer OTHER ==
--- NOTE | 2024-04-24 20:22 | EDPHYS ---
Physician Documentation [facility] Name: Alpesh Alves Age: 83 yrs Sex: Male : 1940 Arrival Date: 04/24/2024 Time: 20:04 Bed 19 Private MD: ED Physician Jd Camarena HPI: 04/24 23:57 This 83 yrs old Male presents to ER via Ambulatory with complaints of Nose Bleed. rt 23:57 Patient presents to the ED with reported epistaxis. The patient had a nasal packing rt performed by Dr. Reese. Was seen earlier today for small minor bleeding. States that had a slight bruise onto the bandage that was there. Denies any active bleeding currently. Denies other acute complaints, symptoms are mild in severity, no other aggravating or elevating factors.. 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 - Infectious Disease History:: Denies. - Social history:: Smoking status: Patient denies any tobacco usage or history of. - Family history:: not pertinent. ROS: 23:57 Constitutional: Negative for fever, chills, and weight loss, Cardiovascular: Negative rt for chest pain, palpitations, and edema, Respiratory: Negative for shortness of breath, cough, wheezing, and pleuritic chest pain, Abdomen/GI: Negative for abdominal pain, nausea, vomiting, diarrhea, and constipation, Skin: Negative for injury, rash, and discoloration, Neuro: Negative for headache, weakness, numbness, tingling, and seizure, 23:57 ENT: Positive for nose bleed, Exam: 23:57 Constitutional: This is a well developed, well nourished patient who is awake, alert, rt and in no acute distress. Head/Face: Normocephalic, atraumatic. Chest/axilla: Normal chest wall appearance and motion. Nontender with no deformity. No lesions are appreciated. Cardiovascular: Regular rate and rhythm with a normal S1 and S2. No gallops, murmurs, or rubs. Normal PMI, no JVD. No pulse deficits. Respiratory: Lungs have equal breath sounds bilaterally, clear to auscultation and percussion. No rales, rhonchi or wheezes noted. No increased work of breathing, no retractions or nasal flaring. Abdomen/GI: Soft, non-tender, with normal bowel sounds. No distension or tympany. No guarding or rebound. No evidence of tenderness throughout. Skin: Warm, dry with normal turgor. Normal color with no rashes, no lesions, and no evidence of cellulitis. MS/ Extremity: Pulses equal, no cyanosis. Neurovascular intact. Full, normal range of motion. Neuro: Awake and alert, GCS 15, oriented to person, place, time, and situation. Cranial nerves II-XII grossly intact. Motor strength 5/5 in all extremities. Sensory grossly intact. Cerebellar exam normal. Normal gait. 23:57 ENT: Nasal packing in the right nare, clot noted at the inferior portion, no active bleeding apparent.. Vital Signs: 20:14 BP 167 / 92; Pulse 112; Resp 22; Temp 98.4(TE); Pulse Ox 98% on R/A; Weight 104.33 kg; tl4 Height 5 ft. 11 in. ; Pain 5/10; 20:30 BP 167 / 92; Pulse 111; Resp 18; Temp 98.4(O); Pulse Ox 97% on R/A; Pain 0/10; tm6 20:14 Body Mass Index 32.08 (104.33 kg, 180.34 cm) tl4 20:14 Pain Scale: Adult tl4 20:30 Pain Scale: Adult tm6 MDM: 20:11 Patient medically screened. rt 23:57 Differential diagnosis: spontaneous epistaxis. Data reviewed: vital signs, nurses rt notes. Test considered but Not performed: Other Details Unremarkable vital signs, no active bleeding, CBC not indicated. Counseling: I had a detailed discussion with the patient and/or guardian regarding the historical points, exam findings, and any diagnostic results supporting the discharge/admit diagnosis, the need for outpatient follow up, to return to the emergency department if symptoms worsen or persist or if there are any questions or concerns that arise at home. ED course: Patient with no active bleeding currently. No apparent complications with nasal packing. Patient is stable for outpatient care to follow-up with ENT as previously scheduled.. Administered Medications: No medications were administered Disposition Summary: 04/24/24 20:22 Discharge Ordered Notes: Location: Home rt Problem: an ongoing problem rt Symptoms: have improved rt Condition: Stable rt Diagnosis - Epistaxis rt Followup: rt - With: Erica Reese MD - When: 2 - 3 days - Reason: Discharge Instructions: - Discharge Summary Sheet rt - Nosebleed, Adult rt Forms: - Medication Reconciliation Form rt - Antibiotic Education rt - Prescription Opioid Use rt - Patient Portal Instructions rt - Leadership Thank You Letter rt Signatures: Jd Camarena MD MD rt Jb Penn, RN RN tl4
--- NOTE | 2024-04-24 20:22 | ER ---
Nurse's Notes [facility] Name: Alpesh Alves Age: 83 yrs Sex: Male : 1940 Arrival Date: 04/24/2024 Time: 20:04 Bed 19 Private MD: Diagnosis: Epistaxis Presentation: 04/24 20:14 Chief complaint: Patient states: Pt states he thinks he may have dislodged the tl4 rhinorocket in place to control ongoing nosebleed. Pt was evaluated in this ED this am for breakthrough bleeding and was told there is a clot in place and to monitor. Pt states he has changed the gauze multiple times today. Gauze currently in place has small amount of bright red blood. Coronavirus screen: At this time, the client does not indicate any symptoms associated with coronavirus-19. Ebola Screen: No symptoms or risks identified at this time. Initial Sepsis Screen: Does the patient meet any 2 criteria? No. Patient's initial sepsis screen is negative. Does the patient have a suspected source of infection? No. Patient's initial sepsis screen is negative. Risk Assessment: Do you want to hurt yourself or someone else? Patient reports no desire to harm self or others. Onset of symptoms is unknown. 20:14 Method Of Arrival: Ambulatory tl4 20:14 Acuity: EDE 3 tl4 Triage Assessment: 20:18 General: Appears in no apparent distress. Behavior is calm, cooperative. Pain: tl4 Complains of pain in neck. EENT: Reports pain when swallowing. Neuro: Level of Consciousness is awake, alert, obeys commands, Oriented to person, place, time, situation, Moves all extremities. Full function Gait is steady. Cardiovascular: Capillary refill < 3 seconds Patient's skin is warm and dry. Respiratory: Airway is patent Respiratory effort is even, unlabored, Respiratory pattern is regular, symmetrical, Breath sounds are clear bilaterally. GI: No signs and/or symptoms were reported involving the gastrointestinal system. : No signs and/or symptoms were reported regarding the genitourinary system. Derm: No signs and/or symptoms reported regarding the dermatologic system. Musculoskeletal: No signs and/or symptoms reported regarding the musculoskeletal system. 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 - Infectious Disease History:: Denies. - Social history:: Smoking status: Patient denies any tobacco usage or history of. - Family history:: not pertinent. Screenin:28 [facility] ED Fall Risk Assessment (Adult) History of falling in the last 3 months, tm6 including since admission No falls in past 3 months (0 pts) Confusion or Disorientation No (0 pts) Intoxicated or Sedated No (0 pts) Impaired Gait No (0 pts) Mobility Assist Device Used No (0 pt) Altered Elimination No (0 pt) Score/Fall Risk Level 0 - 2 = Low Risk Oriented to surroundings, Maintained a safe environment, Educated pt \T\ family on fall prevention, incl call for assistance when getting out of bed. Abuse screen: Denies threats or abuse. Denies injuries from another. Nutritional screening: No deficits noted. Tuberculosis screening: No symptoms or risk factors identified. Assessment: 20:28 General: Appears in no apparent distress. Behavior is calm, cooperative. Pain: Denies tm6 pain. Neuro: Level of Consciousness is awake, alert, obeys commands, Oriented to person, place, time, situation. Cardiovascular: No deficits noted. Patient's skin is warm and dry. Respiratory: Airway is patent Respiratory effort is even, unlabored, Respiratory pattern is regular, symmetrical. GI: No signs and/or symptoms were reported involving the gastrointestinal system. Abdomen is round non-distended. : No signs and/or symptoms were reported regarding the genitourinary system. EENT: device in nose placed by ENT. Reports nose bleed. Derm: No signs and/or symptoms reported regarding the dermatologic system. Musculoskeletal: No signs and/or symptoms reported regarding the musculoskeletal system. Vital Signs: 20:14 BP 167 / 92; Pulse 112; Resp 22; Temp 98.4(TE); Pulse Ox 98% on R/A; Weight 104.33 kg; tl4 Height 5 ft. 11 in. ; Pain 5/10; 20:30 BP 167 / 92; Pulse 111; Resp 18; Temp 98.4(O); Pulse Ox 97% on R/A; Pain 0/10; tm6 20:14 Body Mass Index 32.08 (104.33 kg, 180.34 cm) tl4 20:14 Pain Scale: Adult tl4 20:30 Pain Scale: Adult tm6 ED Course: 20:06 Patient arrived in ED. mr 20:07 Jd Camarena MD is Attending Physician. rt 20:12 Destiny Castillo, RN is Primary Nurse. tm6 20:17 Triage completed. tl4 20:20 Arm band placed on right wrist. tl4 20:21 Erica Reese MD is Referral Physician. rt 20:28 Patient has correct armband on for positive identification. Bed in low position. Call tm6 light in reach. Provided Education on: follow up with Dr. Reese. Client placed on continuous cardiac and pulse oximetry monitoring. NIBP monitoring applied. Pulse ox on. NIBP on. 20:28 No provider procedures requiring assistance completed. Patient did not have IV access tm6 during this emergency room visit. Administered Medications: No medications were administered Medication: 20:28 VIS not applicable for this client. tm6 Outcome: 20:22 Discharge ordered by . rt 20:28 Discharged to tm6 20:28 Condition: stable 20:31 Discharged to home ambulatory, with family, tm6 20:31 Discharge instructions given to patient, family, Instructed on discharge instructions, follow up and referral plans. Demonstrated understanding of instructions, follow-up care, 20:31 Patient left the ED. tm6 Signatures: Kristen Butler, Reg Reg mr Jd Camarena MD MD rt Destiny Castillo, RN RN tm6 LogdaJb garcia RN RN tl4
[2024-04-24 21:10] VITALS: BP 167/92; TEMP 98.4; O2SAT 97
== END 2024-04-24 20:31 | disposition home or self-care (01) ==
LOC: ER 20:04
DX: R04.0 Epistaxis (principal); Z79.01 Long term (current) use of anticoagulants
CPT/HCPCS: 99283

== ENCOUNTER 2025-01-27 06:06 | Observation (INO) | payer OTHER ==
[2025-01-27] MEDS ORDERED: IPRATROPIUM BROM 0.5MG/2.5ML ONE (06:18)
[2025-01-27] MEDS ORDERED: ALBUTEROL 2.5 MG/3 ML NEB SOL ONE (06:18)
[2025-01-27 06:41] LABS: PT Prothrombin Time 13.6 SECONDS (10-13.0); Protime INR 1.2
[2025-01-27 06:52] LABS: Absolute Basophils 0.1 K/uL (0-0.5); Absolute Eosinophils 0.3 K/uL (0-0.5); Absolute Lymphocytes (CBC) 1.3 K/uL (0.7-4.9); Absolute Neutrophil 4.9 K/uL (1.8-8.0); Basophils % 0.8 % (0-1.3); Eosinophils % 4.5 % (0-4.4); Hemoglobin 12.1 g/dL (13.6-17.9); Lymphocytes % 17.6 % (15.3-44.8); MCH 32.5 pg (27.0-35.0); MCHC 33.6 g/dL (32.0-36.0); MCV 96.8 fL (80-100); MPV 8.6 fL (7.6-11.3); Monocytes % 12.8 % (3.3-12.3); Neutrophils % 64.3 % (41.7-73.7); Nucleated Red Blood Cells % 0.1 % (0-0); Platelets 208 thou/uL (152-406); RBC Red Blood Cell Count 3.71 M/uL (4.33-5.43); Red Cell Distribution Width 14.3 % (12.1-15.2)
--- NOTE | 2025-01-27 07:00 | RAD REPORT ---
EXAMINATION: ONE VIEW CHEST XR CLINICAL INDICATION: Male, 84 years old.,Cough;Dyspnea TECHNIQUE: Frontal chest projection is submitted. Examination is limited by patient positioning and t echnique. COMPARISON: 01/06/2024 FINDINGS: Central interstitial prominence with engorgement of the major vascular structures. Trace right pleura l effusion along the minor fissure. No pneumothorax or other sizable effusion. Mild cardiomegaly. Mediastinal contours are unremarkable. IMPRESSION: Worsening findings suggestive of central congestion/CHF.
[2025-01-27 07:02] LABS: Albumin 3.7 g/dL (3.4-5.0); Anion Gap 8.4 mEq/L (5.0-15.0); Bilirubin Direct 0.4 mg/dL (0-0.2); Bilirubin Indirect, Calculated 0.6 mg/dL (0.2-0.8); Globulin 3.8 g/dL (2.3-3.5); Magnesium 1.5 mg/dL (1.6-2.4); Potassium 4.4 mEq/L (3.5-5.1); Protein, Total 7.5 g/dL (6.4-8.2)
[2025-01-27 07:06] LABS: Troponin High Sensitivity 108.8 pg/mL (<58.9)
[2025-01-27 07:17] LABS: Influenza A Ag Negative; Influenza B Ag Negative; SARS-CoV-2 Antigen Rapid Res Negative (Negative)
--- NOTE | 2025-01-27 07:54 | ER ---
Nurse's Notes [facility] Name: Alpesh Alves Age: 84 yrs Sex: Male : 1940 Arrival Date: 01/27/2025 Time: 06:06 Bed 8 Private MD: Diagnosis: Acute diastolic (congestive) heart failure;Acute pulmonary edema;Subsequent non-ST elevation (NSTEMI) myocardial infarction Presentation: 01/27 06:07 Chief complaint: Patient states: I have been really short of breath since 2300 last bm8 night. 06:07 Coronavirus screen: At this time, the client does not indicate any symptoms associated bm8 with coronavirus-19. Ebola Screen: Patient negative for fever greater than or equal to 101.5 degrees Fahrenheit, and additional compatible Ebola Virus Disease symptoms Patient denies exposure to infectious person. Patient denies travel to an Ebola-affected area in the 21 days before illness onset. No symptoms or risks identified at this time. Initial Sepsis Screen: Does the patient meet any 2 criteria? RR > 20 per min. No. Patient's initial sepsis screen is negative. Does the patient have a suspected source of infection? No. Patient's initial sepsis screen is negative. Risk Assessment: Do you want to hurt yourself or someone else? Patient reports no desire to harm self or others. Onset of symptoms was January 26, 2025 at 23:00. 06:07 Method Of Arrival: Ambulatory bm8 06:07 Acuity: DEE 2 bm8 Triage Assessment: 06:31 General: Appears distressed, uncomfortable, Behavior is cooperative, appropriate for bm8 age, anxious. Pain: Complains of pain in chest Pain currently is 5 out of 10 on a pain scale. EENT: No deficits noted. No signs and/or symptoms were reported regarding the EENT system. Neuro: No deficits noted. Level of Consciousness is awake, alert, obeys commands, Oriented to person, place, time, situation, Appropriate for age. Cardiovascular: Reports chest pain, shortness of breath, Heart tones S1 S2 present Capillary refill < 3 seconds in bilateral fingers Patient's skin is warm and dry. Edema is 1+ to left ankle, left foot, left toes, right ankle and right foot. Respiratory: Reports shortness of breath labored breathing Airway is patent Trachea midline Respiratory effort is even, unlabored, Respiratory pattern is regular, symmetrical, Onset: The symptoms/episode began/occurred gradually, the patient has moderate shortness of breath. GI: No deficits noted. No signs and/or symptoms were reported involving the gastrointestinal system. : No deficits noted. No signs and/or symptoms were reported regarding the genitourinary system. Derm: No deficits noted. No signs and/or symptoms reported regarding the dermatologic system. Musculoskeletal: No deficits noted. No signs and/or symptoms reported regarding the musculoskeletal system. 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 - Infectious Disease History:: Denies. - Social history:: Smoking status: Patient denies any tobacco usage or history of. Screenin:34 [facility] ED Fall Risk Assessment (Adult) History of falling in the last 3 months, bm8 including since admission No falls in past 3 months (0 pts) Confusion or Disorientation No (0 pts) Intoxicated or Sedated No (0 pts) Impaired Gait No (0 pts) Mobility Assist Device Used No (0 pt) Altered Elimination No (0 pt) Score/Fall Risk Level 0 - 2 = Low Risk Oriented to surroundings, Maintained a safe environment, Educated pt \T\ family on fall prevention, incl call for assistance when getting out of bed, Assessed \T\ reinforced patient's understanding of fall precautions, Hourly rounding (assess needs \T\ fall precautionary measures) done, Used ambulatory aids as needed (educated on \T\ assisted with), Used gait belt as appropriate. Abuse screen: Denies threats or abuse. Nutritional screening: No deficits noted. Tuberculosis screening: No symptoms or risk factors identified. Assessment: 07:23 General: Appears comfortable, Behavior is calm, cooperative, appropriate for age. Pain: ap3 Denies pain. Neuro: Level of Consciousness is awake, alert, obeys commands, Oriented to person, place, time, situation, Appropriate for age. Cardiovascular: Patient's skin is warm and dry. Cardiovascular: Rhythm is. Respiratory: Airway is patent Respiratory effort is even, unlabored, Respiratory pattern is regular, symmetrical. 11:13 Respiratory: ld1 Vital Signs: 06:07 BP 180 / 107; Pulse 86; Resp 30; Temp 98.2; Pulse Ox 88% on R/A; Weight 108 kg; Height bm8 5 ft. 11 in. ; Pain 5/10; 06:21 BP 163 / 107; Pulse 79; Resp 20; Temp 98; Pulse Ox 96% on R/A; Weight 104.33 kg; Height oe 5 ft. 11 in. ; 07:30 BP 161 / 90; Pulse 86; Pulse Ox 98% on 2 lpm NC; ap3 08:00 BP 176 / 90; Pulse 79; Pulse Ox 91% on 2 lpm NC; ap3 08:37 BP 148 / 89; Pulse 92; Resp 20; Pulse Ox 94% on 2 lpm NC; ap3 09:21 BP 153 / 62; Pulse 86; Pulse Ox 92% on 2 lpm NC; ap3 10:11 BP 140 / 88; Pulse 92; Resp 18; Pulse Ox 95% on 2 lpm NC; ap3 06:21 Body Mass Index 32.08 (104.33 kg, 180.34 cm) oe 06:07 Pain Scale: Adult bm8 [place] Coma Score: 06:34 Eye Response: spontaneous(4). Motor Response: obeys commands(6). Verbal Response: bm8 oriented(5). Total: 15. ED Course: 06:07 Patient arrived in ED. jj6 06:09 Yumiko Richards MD is Attending Physician. sp3 06:20 Initial lab(s) drawn, by ms, sent to lab. First set of blood cultures drawn by me, EKG bm8 done, by ED staff, reviewed by Yumiko Richards MD COVID swab sent to lab. Flu and/or RSV swab sent to lab. Oxygen administered via a nebulizer mask. Response to oxygen therapy: symptoms improved. 06:29 Saul Dumas, RN is Primary Nurse. bm8 06:31 Triage completed. bm8 06:31 Arm band placed on right wrist. bm8 06:34 XRAY Chest (1 view) In Process Unspecified. EDMS 06:34 Patient has correct armband on for positive identification. Bed in low position. Call bm8 light in reach. Side rails up X 1. Adult w/ patient. Client placed on continuous cardiac and pulse oximetry monitoring. NIBP monitoring applied. structural steel equipment erector on. Pulse ox on. NIBP on. Door closed. Warm blanket given. Pillow given. Verbal reassurance given. Head of bed elevated. 06:34 No provider procedures requiring assistance completed. Inserted saline lock: 18 gauge bm8 in right antecubital area, using aseptic technique. Blood collected. Flushed with 10 mL NS. 07:12 Attending Physician role handed off by Yumiko Richards MD jr11 07:12 Ike Joya MD is Attending Physician. jr11 07:22 Primary Nurse role handed off by Saul Dumas, RN eb 07:23 Genesis Cantor, JOE is Primary Nurse. ap3 07:25 Warm blanket given. ap3 07:53 Verito Joaquin MD is Hospitalizing Provider. jr11 11:13 Provided Education on: ER hold status. . ld1 11:13 Patient admitted, IV remains in place. ld1 Administered Medications: 06:32 Drug: DuoNeb Nebulize (3:1) (2.5 mg - 0.5 mg) 3 ml Nebulizer once Route: Nebulizer; dd2 07:24 Follow up: Response: No adverse reaction ap3 08:12 Drug: Nitroglycerin Transdermal Ointment 2 % 1 inches Transdermal once Route: ap3 Transdermal; Site: anterior chest wall; 08:12 Drug: Furosemide IVP 60 mg IVP once; give over 2 minutes Route: IVP; Site: right ap3 antecubital; 10:12 Follow up: Response: No adverse reaction ap3 Medication: 06:34 VIS not applicable for this client. bm8 Output: 10:12 Urine: 450ml (Voided); Total: 450ml. ap3 Outcome: 07:53 Decision to Hospitalize by Provider. jr11 11:13 Admitted to ER Hold. Please see [facility] for further documentation. ld1 11:13 Condition: good 11:13 Discharge instructions given to patient, Instructed on the need for admit, Demonstrated understanding of instructions, 15:43 Patient left the ED. ap3 Signatures: Dispatcher [employer] EDMS Josh Snow Amanda, RN RN ap3 Emani Ackerman Lauren RN RN ld1 Yumiko Richards MD MD sp3 Starr Johnsonj6 Ike Joya MD MD jr11 Saul Dumas RN RN bm8 AYLA BECKFORD RN RN dd2 Corrections: (The following items were deleted from the chart) 07:27 07:24 BP 161 / 90; Pulse 88bpm; Resp 19bpm; Pulse Ox 94% RA; ap3 ld1
--- NOTE | 2025-01-27 07:54 | EDPHYS ---
Physician Documentation [facility] Name: Alpesh Alves Age: 84 yrs Sex: Male : 1940 Arrival Date: 01/27/2025 Time: 06:06 Bed 8 Private MD: ED Physician Ike Joya HPI: 01/27 06:25 This 84 yrs old Male presents to ER via Unassigned with complaints of Breathing sp3 Difficulty. 06:27 84-year-old male with history of atrial fibrillation, asthma, NSTEMI, prior bladder sp3 cancer status post repair/treatment currently LAZARA, now presents to the ED with chief complaint difficulty breathing and wheezing. He has been using his rescue inhaler which has helped somewhat but not fully. He also endorses productive cough. He denies any chest pain, significant peripheral edema, orthopnea, abdominal pain, nausea, vomiting, diarrhea, syncope, known sick contacts, travel history, prolonged immobilization, prior DVT or PE, or any other signs or symptoms on ROS at this time. Patient sees Dr. Joaquin for PCP. He is on a "blood thinner" but does not recall the name.. 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 - Infectious Disease History:: Denies. - Social history:: Smoking status: Patient denies any tobacco usage or history of. ROS: 06:29 Constitutional: Negative for fever, chills, and weight loss, Eyes: Negative for injury, sp3 pain, redness, and discharge, Neck: Negative for injury, pain, and swelling, Cardiovascular: Negative for chest pain, palpitations, and edema, Abdomen/GI: Negative for abdominal pain, nausea, vomiting, diarrhea, and constipation, Back: Negative for injury and pain, : Negative for injury, bleeding, discharge, and swelling, MS/Extremity: Negative for injury and deformity, Skin: Negative for injury, rash, and discoloration, Neuro: Negative for headache, weakness, numbness, tingling, and seizure, Psych: Negative for depression, anxiety, suicide ideation, homicidal ideation, and hallucinations, Allergy/Immunology: Negative for hives, rash, and allergies, Endocrine: Negative for neck swelling, polydipsia, polyuria, polyphagia, and marked weight changes, 06:29 All other systems are negative, Exam: 06:29 Constitutional: This is a well developed, well nourished patient who is awake, alert, sp3 and in no acute distress. Head/Face: Normocephalic, atraumatic. Eyes: Pupils equal round and reactive to light, extra-ocular motions intact. Lids and lashes normal. Conjunctiva and sclera are non-icteric and not injected. Cornea within normal limits. Periorbital areas with no swelling, redness, or edema. Neck: Trachea midline, no thyromegaly or masses palpated, and no cervical lymphadenopathy. Supple, full range of motion without nuchal rigidity, or vertebral point tenderness. No Meningismus. Chest/axilla: Normal chest wall appearance and motion. Nontender with no deformity. No lesions are appreciated. Cardiovascular: Regular rate and rhythm with a normal S1 and S2. No gallops, murmurs, or rubs. Normal PMI, no JVD. No pulse deficits. Abdomen/GI: Soft, non-tender, with normal bowel sounds. No distension or tympany. No guarding or rebound. No evidence of tenderness throughout. Back: No spinal tenderness. No costovertebral tenderness. Full range of motion. Skin: Warm, dry with normal turgor. Normal color with no rashes, no lesions, and no evidence of cellulitis. MS/ Extremity: Pulses equal, no cyanosis. Neurovascular intact. Full, normal range of motion. Neuro: Awake and alert, GCS 15, oriented to person, place, time, and situation. Cranial nerves II-XII grossly intact. Motor strength 5/5 in all extremities. Sensory grossly intact. Cerebellar exam normal. Normal gait. Psych: Awake, alert, with orientation to person, place and time. Behavior, mood, and affect are within normal limits. 06:29 Respiratory: Scattered wheeze noted. No significant Rales., 06:58 ECG was reviewed by the Attending Physician. EKG demonstrates atrial fibrillation at 82 sp3 bpm with normal intervals absent OR with QTc 455, normal axis, normal QRS and nonspecific diffuse ST/T changes without evidence of acute ischemia. Vital Signs: 06:07 BP 180 / 107; Pulse 86; Resp 30; Temp 98.2; Pulse Ox 88% on R/A; Weight 108 kg; Height bm8 5 ft. 11 in. ; Pain 5/10; 06:21 BP 163 / 107; Pulse 79; Resp 20; Temp 98; Pulse Ox 96% on R/A; Weight 104.33 kg; Height oe 5 ft. 11 in. ; 07:30 BP 161 / 90; Pulse 86; Pulse Ox 98% on 2 lpm NC; ap3 08:00 BP 176 / 90; Pulse 79; Pulse Ox 91% on 2 lpm NC; ap3 08:37 BP 148 / 89; Pulse 92; Resp 20; Pulse Ox 94% on 2 lpm NC; ap3 09:21 BP 153 / 62; Pulse 86; Pulse Ox 92% on 2 lpm NC; ap3 10:11 BP 140 / 88; Pulse 92; Resp 18; Pulse Ox 95% on 2 lpm NC; ap3 06:21 Body Mass Index 32.08 (104.33 kg, 180.34 cm) oe 06:07 Pain Scale: Adult bm8 [place] Coma Score: 06:34 Eye Response: spontaneous(4). Motor Response: obeys commands(6). Verbal Response: bm8 oriented(5). Total: 15. MDM: 06:09 Medical Screening Exam initiated sp3 06:30 Data reviewed: vital signs, nurses notes, old medical records, lab test result(s), EKG, sp3 radiologic studies. ED course: 84-year-old male with PMH above now with cough and dyspnea since 11 PM last night. Differential diagnosis includes asthma exacerbation, undiagnosed COPD, CHF, pneumonia, bronchitis, viral illness including COVID-19 and flu, noncardiac pulmonary edema, among others. Workup will include EKG, chest x-ray and general labs including troponin and BNP. One dose of albuterol/Atrovent ordered to be both diagnostic and therapeutic. Disposition pending workup and patient course. Patient likely will be signed out to daytime physician for final reevaluation and disposition. If needing admission, patient to be admitted to her PCP Dr. Joaquin.. 08:00 ED course: Dr Joaquin at bedside, agrees with lasix and nitro, will admit. . 01/27 06:24 Order name: Basic Metabolic Panel; Complete Time: 07:36 01/27 07:37 Interpretation: GFR 41. 01/27 06:24 Order name: CBC with Diff; Complete Time: 07:36 01/27 06:24 Order name: LFT's; Complete Time: 07:36 01/27 06:24 Order name: Magnesium; Complete Time: 07:36 01/27 06:24 Order name: NT PRO-BNP; Complete Time: 07:36 01/27 06:24 Order name: PT-INR; Complete Time: 06:58 01/27 06:24 Order name: Troponin HS; Complete Time: 07:36 01/27 06:24 Order name: COVID-19 Ag + Flu A+B Ag; Complete Time: 07:36 01/27 06:24 Order name: XRAY Chest (1 view); Complete Time: 07:36 01/27 06:24 Order name: Cardiac monitoring; Complete Time: 06:36 01/27 06:24 Order name: EKG - Nurse/Tech; Complete Time: 06:36 01/27 06:24 Order name: IV Saline Lock; Complete Time: 06:36 01/27 06:24 Order name: Labs collected and sent; Complete Time: 06:36 01/27 06:24 Order name: O2 Per Protocol; Complete Time: 06:36 01/27 06:24 Order name: O2 Sat Monitoring; Complete Time: 06:36 3 Administered Medications: 06:32 Drug: DuoNeb Nebulize (3:1) (2.5 mg - 0.5 mg) 3 ml Nebulizer once Route: Nebulizer; dd2 07:24 Follow up: Response: No adverse reaction ap3 08:12 Drug: Nitroglycerin Transdermal Ointment 2 % 1 inches Transdermal once Route: ap3 Transdermal; Site: anterior chest wall; 08:12 Drug: Furosemide IVP 60 mg IVP once; give over 2 minutes Route: IVP; Site: right ap3 antecubital; 10:12 Follow up: Response: No adverse reaction ap3 Disposition Summary: 01/27/25 07:53 Hospitalization Ordered Notes: Hospitalization Status: Observation jr11 Provider: Verito Joaquin jr Condition: Stable jr11 Problem: an acute exacerbation jr11 Symptoms: are unchanged jr11 Bed/Room Type: Standard [facility] Location: Telemetry/MedSurg (observation)(01/27/25 14:58) eb Room Assignment: 225(01/27/25 14:58) Diagnosis - Acute diastolic (congestive) heart failure jr11 - Acute pulmonary edema jr11 - Subsequent non-ST elevation (NSTEMI) myocardial infarction jr11 Forms: - Medication Reconciliation Form jr11 - SBAR form jr11 - Leadership Thank You Letter jr11 Signatures: Dispatcher [employer] EDAZ Genesis Cantor RN RN ap3 Emani Ackerman Setul, MD MD sp3 Ike Joya MD MD jr11 Saul Dumas RN RN bm8 AYLA BECKFORD RN RN dd2 Corrections: (The following items were deleted from the chart) 06:25 06:25 BASIC METABOLIC PANEL+C.LAB.BRZ ordered. EDMS EDMS 06:25 06:25 CBC+H.LAB.BRZ ordered. EDMS EDMS 06:25 06:25 HEPATIC FUNCTION+C.LAB.BRZ ordered. EDMS EDMS 06:25 06:25 MAGNESIUM+C.LAB.BRZ ordered. EDMS EDMS 06:25 06:25 PROBNP+C.LAB.BRZ ordered. EDMS EDMS 06:25 06:25 PROTIME (+INR)+COAG.LAB.BRZ ordered. EDMS EDMS 06:25 06:25 Troponin High Sensitivity+C.LAB.BRZ ordered. EDMS EDMS 06:25 06:25 COVID-19 Ag + Flu A+B Ag+I.LAB.BRZ ordered. EDMS EDMS 06:25 06:25 Chest Single View+RAD.RAD.BRZ ordered. EDMS EDMS 12:59 07:53 Telemetry/MedSurg (observation) jr11 eb 12:59 07:53 jr eb 14:58 12:59 [facility] 14:58 12:59 [facility]
[2025-01-27] MEDS ORDERED: NITROGLYCERIN 1 GM PKT TD ONE (08:00)
[2025-01-27] MEDS ORDERED: FUROSEMIDE 100 MG/10 ML VIAL IV ONE (08:00)
[2025-01-27 11:03] VITALS: BMI 32.1
--- NOTE | 2025-01-27 12:50 | HP ---
Date of Admission: 01/27/2025 Chief Complaint: Shortness of breath and leg swelling. History Of Present Illness: Mr. Alves is a pleasant 84-year-old male patient who was doing fine in h is normal usual state of health until last night. He started to have shortness of breath and present ed to emergency room early this morning. Denies any chest pain. He also noted to have some leg swel ling in last day or so. No fever, cough, congestion, or any expectoration. After patient was evalua sloane in the emergency room, he was admitted to the hospital with congestive heart failure problem and I saw him in the emergency room this morning. Physical Examination: Vital Signs: Height 6 feet, inches, weight pounds, temperature , pul se , blood pressure , respiratory rate , oxygen saturation . General: Awake, alert, oriented, not in distress. HEENT: Head atraumatic, normocephalic. Conjunctivae nonerythematous. Sclerae white. Mouth, no thr ush or edema noted. Ears/Nose, no mass, lesion, discharge noted. Neck: Supple. No JVD, lymph nodes, bruit, thyromegaly noted. Lungs: Presence of rales noted in bilateral lower 1/4 to 1/3 lung mccormick. Not using accessory muscl es of respiration. Heart: Normal heart sounds, no murmur or gallop. Abdomen: Soft, bowel sounds normal. No guarding, rigidity, tenderness, mass, hepatosplenomegaly, dis tention, or bruit noted. Extremities: Bilateral grade 1 to grade 2 pedal edema extending up to the knees. Skin: No rash, ulcer, cellulitis. Lymphatics: No lymph node enlargement in neck, supraclavicular, infraclavicular region. Neuro: No focal neurological deficit. Chest: Unremarkable. External Genitalia: Deferred. Rectal: Deferred. Laboratory Data: WBC 7.7, hemoglobin 12.1 platelets 208. Sodium 140, potassium 4.4, chloride 109, b icarb 27, BUN 36, creatinine 1.64, glucose 118. Liver function tests unremarkable. Troponin 108.8. ProBNP 2673. Chest x-ray shows findings suggestive of congestive heart failure. Impression: 1. Congestive heart failure. 2. Chronic kidney disease, stage 3B. 3. Chronic atrial fibrillation. 4. Hypertension. 5. Coronary artery disease. 6. Hyperlipidemia. 7. Anemia, unspecified. 8. Gastroesophageal reflux disease. Plan: Admit patient to hospital for further evaluation and management of this problem. The patient is appropriate for inpatient and is expected to spend 2 midnights in hospital. We will go ahead and start him on IV Lasix and nitroglycerin ointment that was ordered to be given in the emergency room. After he was admitted to the hospital, we will continue Lasix and monitor intake, output, daily weig ht, electrolytes, renal function. We will evaluate his outpatient record today to look for last echo cardiogram result and if necessary, we will order one to be done but he sees subject scientific research regularly, so hopefully he should have a current echocardiogram findings should assist us with the management. The patient should restrict salt intake. This was discussed with him. For hypertension, we will con tinue antihypertensive medication and monitor blood pressure, if necessary adjust medication. For hy perlipidemia, we will continue his statin therapy per order. No need for further intervention. For chronic kidney disease, stage 3, we will continue to monitor, but no need for any further interventio n on it. Total time spent today 80 minutes including review of last hospital admission record from 04/23/2024, communication with emergency room provider, review of emergency room visit record, and performing to day's evaluation and management. MANSOOR/MODL Voice ID: [id number]
[2025-01-27 15:57] VITALS: O2SAT 95
[2025-01-27] MEDS: FUROSEMIDE 40 MG/4 ML VIAL IV SCH (17:56)
[2025-01-27] MEDS: DULERA 100/5 (MOMETASONE/FORMOTEROL) INHALER IH SCH (21:00)
[2025-01-27] MEDS: GABAPENTIN 100 MG CAP PO SCH (21:00)
[2025-01-27] MEDS: ATORVASTATIN 40 MG TAB PO SCH (22:44)
[2025-01-27] MEDS: METOPROLOL TAR 25 MG TAB PO SCH (22:45)
[2025-01-27] MEDS: MAGNESIUM OXIDE 400 MG TAB PO SCH (22:45)
[2025-01-28] MEDS: DIPHENHYDRAMINE 25 MG TAB/CAP ONE (00:34)
[2025-01-28] MEDS: ACETAMINOPHEN 500 MG TAB ONE (00:35)
[2025-01-28] MEDS: ACETAMINOPHEN 500 MG TAB PO ONE (00:36)
[2025-01-28] MEDS: DIPHENHYDRAMINE 25 MG TAB/CAP PO ONE (00:37)
[2025-01-28 05:36] LABS: Absolute Eosinophils 0.3 K/uL (0-0.5); Absolute Neutrophil 4.5 K/uL (1.8-8.0); Basophils % 0.7 % (0-1.3); Eosinophils % 4.2 % (0-4.4); Lymphocytes % 14.2 % (15.3-44.8); MCH 33.2 pg (27.0-35.0); MCHC 34.6 g/dL (32.0-36.0); MCV 95.9 fL (80-100); MPV 8.2 fL (7.6-11.3); Monocytes % 14.4 % (3.3-12.3); Neutrophils % 66.5 % (41.7-73.7); Nucleated Red Blood Cells % 0.1 % (0-0); Platelets 181 thou/uL (152-406); RBC Red Blood Cell Count 3.33 M/uL (4.33-5.43); Red Cell Distribution Width 14.1 % (12.1-15.2)
[2025-01-28] MEDS: LEVOTHYROXINE SOD 0.05 MG TABLET PO SCH (05:57)
[2025-01-28 05:59] LABS: Anion Gap 10.7 mEq/L (5.0-15.0); Magnesium 1.6 mg/dL (1.6-2.4); Potassium 3.7 mEq/L (3.5-5.1)
[2025-01-28 06:10] LABS: Troponin High Sensitivity 135.1 pg/mL (<58.9)
[2025-01-28 09:03] VITALS: BP 128/80; TEMP 98.3
[2025-01-28] MEDS: AMLODIPINE 10 MG TAB PO SCH (09:20)
[2025-01-28] MEDS: CLOPIDOGREL 75 MG TABLET PO SCH (09:20)
[2025-01-28] MEDS: PANTOPRAZOLE 40MG TABLET PO SCH (09:21)
--- NOTE | 2025-01-28 12:10 | PN ---
This is a code 44 dictation. The patient was admitted as an inpatient based on his admitting diagnosis of CHF, however, he improve d rapidly and today, he is clinically stable for discharge. I discussed the case in detail with Dr. Joaquin and based on the information provided, I approved the code 44. The patient should be converted from inpatient to OBS. /MODL Voice ID: [id number] Report ID: [id number]
--- NOTE | 2025-01-30 00:06 | DS ---
Date of Discharge: 01/28/2025 Disposition: Discharged to go home. Physical Examination: HEENT: Unremarkable. Lungs: Clear to auscultation. Heart: Sounds normal. Abdomen: Soft. Bowel sounds normal. No guarding, rigidity, tenderness, distention. Extremities: No leg edema. Discharge Medications And Instructions: 1. Continue all prior home medications. 2. Start following new medications: a. Furosemide 40 mg take 1 tablet by mouth daily in morning. b. Potassium chloride 10 mEq take 1 capsule by mouth daily in morning. Prescriptions for both medications were sent to his pharmacy. 1. Follow up in my office next week on Thursday, which is 02/01/2025 or , which is 5. Laboratory Data: Upon admission, WBC 7.7, hemoglobin 12.1, platelets 208. Today, WBC 6.8, hemoglobi n 11, platelets 181. Chemistry: Upon admission, sodium 140, potassium 4.4, chloride 109, bicarb 27, BUN 36, creatinine 1.64, glucose 118. Liver function test unremarkable. Initial troponin 108, seco nd troponin 130, third troponin 135. Hospital Course: This is an 84-year-old pleasant male patient who was admitted to the hospital with complaints of shortness of breath and leg swelling. Please see dictated H and P for more information . After the patient was evaluated in the emergency room, he was admitted to the hospital with conges tive heart failure. The patient did not have any complaints of any chest pain. He was started on IV Lasix and initially our thoughts were that the patient would require 2-midnight stay in the hospital , so he was admitted to the hospital as an inpatient, but his condition improved more rapidly than ex pected. So today, when I saw him, he was feeling much better. He was sitting in chair, did not requ michael any oxygen and was feeling fine, felt like he was back to his normal self as far as shortness of breath is concerned. He slept well last night without any paroxysmal nocturnal dyspnea or orthopnea. After I saw him, I encouraged him to ambulate in the hallway to make sure that he is able to ambula te without any difficulty breathing, which he did and he ambulated several times in the hallway witho ut any difficulty at all and requested to be discharged, and medically he was stable for discharge. His cardiac enzymes were slightly higher than normal, but not indicating any myocardial infarction an d I would label that elevation of cardiac enzyme as stress-induced ischemia. 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 Madison, on outpatient basis in October of this year. So today, the patient was discharged to go home. We di d change his admission status from inpatient to observation, and he was discharged in stable and impr adam condition with above-mentioned medications and instructions. Final Diagnoses: 1. Congestive heart failure, diastolic, chronic, with acute exacerbation. 2. Chronic kidney disease stage 3B. 3. Chronic atrial fibrillation. 4. Hypertension. 5. Coronary artery disease. 6. Hyperlipidemia. 7. Anemia, unspecified. 8. Gastroesophageal reflux disease. Total time spent today 40 minutes that includes direct patient care for evaluation and management tod ay; communication with the charge nurse on 2 different occasions; communication with Case Management as well as communication with chief investigator, Dr. Barnhart. MANSOOR/MODL Voice ID: [id number] Report ID: [id number]
--- NOTE | 2025-01-30 10:59 | EKG ---
Test Date: 2025-01-27 Test Time: 06:45:17 Stone Planer: ANGELINE MEASUREMENT RESULTS: Intervals: Rate: 82 CT: QRSD: 94 QT: 390 QTc: 455 [place]: P: CT: QRS: 18 T: 56 INTERPRETIVE STATEMENTS: Atrial fibrillation with premature ventricular or aberrantly conducted complexes Abnormal ECG Compared to ECG 01/06/2024 22:34:56 Ventricular premature complex(es) now present T-wave abnormality no longer present Prolonged QT interval no longer present Electronically Signed On 01-30-25 10:51:19 CDT by Dhruv Harper
== END 2025-01-28 11:40 | disposition home or self-care (01) ==
LOC: ER 06:06 → ERHOLD 10:39 → INTOOBSV 10:39 → 2ND 15:24
PROVIDERS: ADMIT Internal Medicine; ATTEND Internal Medicine
DX: I50.33 Acute on chronic diastolic (congestive) heart failure (principal); R06.02 Shortness of breath; R22.40 Localized swelling, mass and lump, unspecified lower limb; I48.11 Longstanding persistent atrial fibrillation; I25.10 Atherosclerotic heart disease of native coronary artery without angina pectoris; E78.5 Hyperlipidemia, unspecified; D64.9 Anemia, unspecified; K21.9 Gastro-esophageal reflux disease without esophagitis; I12.9 Hypertensive chronic kidney disease with stage 1 through stage 4 chronic kidney disease, or unspecified chronic kidney disease; N18.32 Chronic kidney disease, stage 3b; Z79.01 Long term (current) use of anticoagulants; Z11.52 Encounter for screening for COVID-19
CPT/HCPCS: 85025 ×2; 80048 ×2; 36415; 83735 ×2; 85610; 80076; 84484 ×3; 83880; 71045; 96374; 99285; 87428; J3535; J1940 ×2; J7613; J7644; 93005; G0378

== ENCOUNTER 2025-03-07 15:02 | Observation (INO) | payer OTHER ==
[2025-03-07 16:23] LABS: Absolute Eosinophils 0.2 K/uL (0-0.5); Absolute Lymphocytes (CBC) 1.5 K/uL (0.7-4.9); Absolute Monocytes 1.2 K/uL (0.1-1.3); Basophils % 0.5 % (0-1.3); Hematocrit 33.1 % (39.6-49.0); Hemoglobin 11.6 g/dL (13.6-17.9); Lymphocytes % 18.4 % (15.3-44.8); MCH 32.4 pg (27.0-35.0); MCV 92.7 fL (80-100); MPV 7.7 fL (7.6-11.3); Monocytes % 14.6 % (3.3-12.3); Neutrophils % 63.5 % (41.7-73.7); Platelets 224 thou/uL (152-406); RBC Red Blood Cell Count 3.57 M/uL (4.33-5.43); Red Cell Distribution Width 13.4 % (12.1-15.2)
--- NOTE | 2025-03-07 16:30 | RAD REPORT ---
EXAM: CT Ct Stroke Brain Wo Cont HISTORY: STROKE ALERT COMPARISON: 12/03/2023 TECHNIQUE: Multiple contiguous axial images were obtained for a CT of the brain without contrast. Sag ittal and coronal reformats were performed. One or more of the following dose reduction techniques were used: Automated exposure control, adjus tment of the mA and kV according to patient size, and iterative reconstruction. Unless otherwise specified, incidental findings do not require dedicated imaging follow-up. FINDINGS: No evidence of hydrocephalus, intracranial hemorrhage, or extra-axial fluid collection. Small focus of near CSF density adjacent to the right frontal horn, stable. Mild brain atrophy with mild to moderate periventricular and deep white matter hypodensities, nonspe cific, but suggestive of chronic microvascular ischemic changes, stable. Questionable vessel hyperdensity along the branch of the right MCA is probably stable compared to prior CT allowing for d ifferences in technique, and fever to relate to intracranial atherosclerotic changes. The calvarium is intact. The visualized paranasal sinuses and mastoid air cells are essentially clear . IMPRESSION: No evidence of acute intracranial abnormality. Stable chronic findings as above. THIS REPORT CONTAINS FINDINGS THAT MAY BE CRITICAL TO PATIENT CARE. The findings were verbally commun icated via telephone to Gonzalo Rich on 03/07/2025 4:28 PM.
[2025-03-07 16:32] LABS: PTT, Activated Partial Thromb 31.4 SECONDS (27.2-37.4); Protime INR 1.15
--- NOTE | 2025-03-07 16:40 | RAD REPORT ---
EXAMINATION: CT Neck Angio CLINICAL INDICATION: Male, 84 years old. [facility] dizziness TECHNIQUE: Axial CT images were obtained from the aortic arch to the skull base after intravenous con trast utilizing angiographic protocol. Multiplanar reformats, as well as 3D post-processing (maximum intensity projection images, volume rendered images and/or shaded surface rendered images) w ere generated and reviewed. One or more of the following dose reduction techniques were used: Automated exposure control, adjustment of the mA and/or kV according to patient size, and/or iterativ e reconstruction. Unless otherwise specified, incidental findings do not require dedicated imaging follow-up. COMPARISON: No prior exam. FINDINGS: AORTA: The imaged aortic arch is normal. Normal three-vessel configuration of the arch. CCA: No artifact The common carotid arteries are patent and normal in caliber. ICA/ECA: Bilateral internal and external carotid arteries are patent. There is no significant interna l carotid artery stenosis. Mild to moderate atherosclerotic calcific plaque at the carotid bulbs. VERTEBRAL: The cervical vertebral arteries are patent to the skull base. Vertebral arteries are codom inant. SOFT TISSUE: No significant neck soft tissue abnormalities. The visualized lung apices are clear. 3D images confirm these findings. IMPRESSION: No significant flow abnormality of the neck vessels is identified. NASCET criteria used to quantify ICA stenosis, with the following grading scheme: Mild 0-49% stenosis Moderate 50-69% stenosis Severe 70-99% stenosis Reference: [place] Symptomatic Carotid Endarterectomy Trial Collaborators; Caitlyn BIGGS, [place] ULGO, Perla RB, et al. Beneficial effect of carotid endarterectomy in symptomatic patients with high-grade carotid stenosis. N Engl J Med. 1990Jun 02;325(7):445-53.
[2025-03-07 16:43] LABS: Troponin High Sensitivity 97.6 pg/mL (<58.9)
--- NOTE | 2025-03-07 16:43 | RAD REPORT ---
EXAMINATION: CTA HEAD CLINICAL INDICATION: Male, 84 years old. STROKE ALERT TECHNIQUE: Axial CT images were obtained through the head after intravenous contrast utilizing angiog raphic protocol with 3D post-processing (maximum intensity projection images, volume rendered images and/or shaded surface rendered images). One or more of the following dose reduction technique s were used: Automated exposure control, adjustment of the mA and/or kV according to patient size, and/or iterative reconstruction. Unless otherwise specified, incidental findings do not require dedic ated imaging follow-up. COMPARISON: Noncontrast head CT of the same day. FINDINGS: ICA: The petrous, cavernous, and supraclinoid segments of the bilateral internal carotid arteries are normal. MANSOOR: Anterior cerebral arteries are normal bilaterally. The anterior communicating artery is patent. MCA: Middle cerebral arteries are normal bilaterally. CARDIAC CATH LAB RADIOLOGY TECHNOLOGIST: Posterior cerebral arteries are normal bilaterally. Vertebrobasilar: The vertebral arteries are patent. The basilar artery is normal in appearance. 3D images confirm these findings. IMPRESSION: No evidence of large vessel occlusion or critical stenosis.
--- NOTE | 2025-03-07 16:54 | EDPHYS ---
Physician Documentation [facility] Name: Alpesh Alves Age: 84 yrs Sex: Male : 1940 Arrival Date: 03/07/2025 Time: 15:02 Bed 8 Private MD: ED Physician Gonzalo Rich HPI: 03/07 16:14 This 84 yrs old Male presents to ER via Ambulatory with complaints of Headache, ms3 Dizziness, General Weakness. 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 Patient states his discomfort is a 4/10. Patient denies any alleviating or inciting factors. Patient states his symptoms have resolved since this morning.. Historical: - Allergies: 15:26 Aspirin; db - PMHx: 15:26 Arthritis; Atrial Fib; CARPAL STEVEN. TO LEFT HAND; GERD; Bladder cancer; Hypertension; db - PSHx: 15:26 bladder replaced d/t bladder cancer; Knee Replacement bilateral; shoulder replacement db right; Stented artery; - Immunization history:: Adult Immunizations unknown. - Infectious Disease History:: Denies. - Social history:: Smoking status: Patient/guardian denies using tobacco, but has a distant history of tobacco abuse. ROS: 16:14 Constitutional: Negative for fever, and chills. Cardiovascular: Negative for chest ms3 pain, and palpitations. Respiratory: Negative for shortness of breath, cough, wheezing, and pleuritic chest pain, Abdomen/GI: Negative for abdominal pain, nausea, vomiting, diarrhea, and constipation, MS/Extremity: Negative for injury and deformity, 16:14 Neuro: Positive for dizziness, headache, Exam: 16:14 Constitutional: This is a well developed, well nourished patient who is awake, alert, ms3 and in no acute distress. Cardiovascular: Regular rate and rhythm with a normal S1 and S2. No gallops, murmurs, or rubs. Normal PMI, no JVD. No pulse deficits. Respiratory: Lungs have equal breath sounds bilaterally, clear to auscultation and percussion. No rales, rhonchi or wheezes noted. No increased work of breathing, no retractions or nasal flaring. Abdomen/GI: Soft, non-tender, with normal bowel sounds. No distension or tympany. No guarding or rebound. No evidence of tenderness throughout. Skin: Warm, dry with normal turgor. Normal color with no rashes, no lesions, and no evidence of cellulitis. MS/ Extremity: Pulses equal, no cyanosis. Neurovascular intact. Full, normal range of motion. 16:14 Neuro: Orientation: is normal, Mentation: is normal, Memory: is normal, Cranial nerves: CN I not tested, CN II- XII are normal as tested, Cerebellar function: normal finger to nose testing, Motor: is normal, Sensation: is normal, no obvious gross deficits, Abnormal movements: there are no abnormal movements, 20:38 ECG was reviewed by the Attending Physician. ms3 Vital Signs: 15:24 BP 111 / 57; Pulse 57; Resp 16; Temp 97.8; Pulse Ox 95% on R/A; Weight 104.33 kg; db Height 5 ft. 11 in. ; 18:26 BP 119 / 71; Pulse 61; Resp 16; Pulse Ox 95% ; bp 15:24 Body Mass Index 32.08 (104.33 kg, 180.34 cm) db MDM: 15:39 Medical Screening Exam initiated ms3 16:14 Differential diagnosis: cerebral vascular accident, intracerebral hemorrhage, tension ms3 headache. 16:54 Data reviewed: vital signs, nurses notes, lab test result(s), radiologic studies, and ms3 as a result, I will admit patient. Consideration of Admission/Observation Patient was admitted/placed on observation. Management of patient was discussed with the following: Hospitalist: Dr Joaquin. I considered the following discharge prescriptions or medication management in the emergency department Medications were administered in the Emergency Department. See MAR. Independent interpretation of the following test(s) in the Emergency Department EKG: See my EKG interpretation above. Counseling: I had a detailed discussion with the patient and/or guardian regarding the historical points, exam findings, and any diagnostic results supporting the discharge/admit diagnosis, lab results, radiology results, the need for further work-up and treatment in the hospital. ED course: Discussed case with Dr. Joaquin and he would like patient to receive IV fluids at 70 mL/h x 1 L and patient placed in observation. Discussed this with patient and his and they understand and agree with plan.. 03/07 15:48 Order name: Basic Metabolic Panel; Complete Time: 16:44 ms3 03/07 15:48 Order name: CBC with Diff; Complete Time: 16:43 ms3 03/07 15:48 Order name: High Sensitivity Troponin; Complete Time: 16:44 ms3 03/07 15:48 Order name: Protime (+inr); Complete Time: 16:43 ms3 03/07 15:48 Order name: Ptt, Activated; Complete Time: 16:43 ms3 03/07 16:26 Order name: Glucose, Ancillary Testing; Complete Time: 16:43 EDMS 03/07 17:01 Order name: CBC with Automated Diff EDMS 03/07 17:01 Order name: Comprehensive Metabolic Panel EDMS 03/07 17:01 Order name: Troponin High Sensitivity EDMS 03/07 17:01 Order name: Troponin High Sensitivity EDMS 03/07 17:01 Order name: Troponin High Sensitivity EDMS 03/07 17:01 Order name: Troponin High Sensitivity EDMS 03/07 15:48 Order name: CT Head Angio; Complete Time: 16:43 ms3 03/07 15:48 Order name: CT Neck Angio; Complete Time: 16:43 ms3 03/07 15:48 Order name: CT Stroke Brain w/o Contrast; Complete Time: 16:43 ms3 03/07 15:48 Order name: Stroke CXR 1 View ms3 03/07 15:33 Order name: EKG - Nurse/Tech; Complete Time: 15:33 db 03/07 15:48 Order name: Accucheck; Complete Time: 16:28 ms3 03/07 15:48 Order name: Cardiac monitoring; Complete Time: 16:43 ms3 03/07 15:48 Order name: EKG - Nurse/Tech; Complete Time: 16:28 ms3 03/07 15:48 Order name: IV Saline Lock; Complete Time: 16:43 ms3 03/07 15:48 Order name: Labs collected and sent; Complete Time: 16:43 ms3 03/07 15:48 Order name: NPO; Complete Time: 16:28 ms3 03/07 15:48 Order name: O2 Per Protocol; Complete Time: 16:28 ms3 03/07 15:48 Order name: O2 Sat Monitoring; Complete Time: 16:28 ms3 03/07 15:48 Order name: Stroke Swallow Screen; Complete Time: 18:25 ms3 EC:38 Rate is 54 beats/min. Rhythm is regular. QRS [place] is Normal. MD interval is normal. QRS ms3 interval is normal. Clinical impression: Sinus bradycardia. Interpreted by me. Reviewed by me. Administered Medications: No medications were administered Point of Care Testing: Blood Glucose: 16:05 Blood Glucose: 114 mg/dL; db Ranges: Critical Glucose Levels:Adult <50 mg/dl or >400 mg/dl <40 mg/dl or >180 mg/dl Disposition Summary: 03/07/25 16:53 Hospitalization Ordered Notes: Hospitalization Status: Observation ms3 Provider: Verito Joaquin ms3 Location: Telemetry/MedSurg (observation) ms3 Condition: Stable ms3 Problem: new ms3 Symptoms: are unchanged ms3 Bed/Room Type: Standard ms3 Room Assignment: 223(03/07/25 18:21) ss Diagnosis - Dizziness ms3 - Elevated troponin ms3 - Acute Kidney Injury ms3 Forms: - Medication Reconciliation Form ms3 - SBAR form ms3 - Leadership Thank You Letter ms3 Signatures: Dispatcher [employer] EDMS Leola Diaz, RN RN ss Gonzalo Rich DO DO ms3 Brianne Hill, RN RN db Corrections: (The following items were deleted from the chart) 15:48 15:48 Head Angio+CT.RAD.BRZ ordered. EDMS EDMS 15:48 15:48 Neck Angio+CT.RAD.BRZ ordered. EDMS EDMS 15:48 15:48 CT-STROKE BRAIN W/O CONTRAST+CT.RAD.BRZ ordered. EDMS EDMS 15:49 15:49 Chest Single View+RAD.RAD.BRZ ordered. EDMS EDMS 18:21 16:53 ms3 ss
--- NOTE | 2025-03-07 16:54 | ER ---
Nurse's Notes [facility] Name: Alpesh Alves Age: 84 yrs Sex: Male : 1940 Arrival Date: 03/07/2025 Time: 15:02 Bed 8 Private MD: Diagnosis: Dizziness;Elevated troponin;Acute Kidney Injury Presentation: 03/07 15:24 Chief complaint: Patient states: STATES WENT TO STAND UP BECAME DIZZY AND "FUZZY". db STATES DISCHARGED ON THURSDAY SEEN BY CARDIOLOGY YESTERDAY AND TOLD NEEDS A PACEMAKER. Coronavirus screen: Client denies travel out of the [place] in the last 14 days. At this time, the client does not indicate any symptoms associated with coronavirus-19. Ebola Screen: Patient negative for fever greater than or equal to 101.5 degrees Fahrenheit, and additional compatible Ebola Virus Disease symptoms Patient denies exposure to infectious person. Patient denies travel to an Ebola-affected area in the 21 days before illness onset. No symptoms or risks identified at this time. Initial Sepsis Screen: Does the patient meet any 2 criteria? No. Patient's initial sepsis screen is negative. Does the patient have a suspected source of infection? No. Patient's initial sepsis screen is negative. Risk Assessment: Do you want to hurt yourself or someone else? Patient reports no desire to harm self or others. Onset of symptoms was March 07, 2025. 15:24 Method Of Arrival: Ambulatory db 15:24 Acuity: EDE 2 db Triage Assessment: 15:26 General: Appears in no apparent distress. comfortable, Behavior is calm, cooperative. db Pain: Denies pain. Neuro: Level of Consciousness is awake, alert, obeys commands, Oriented to person, place, time, situation. Respiratory: Airway is patent Respiratory effort is even, unlabored, Respiratory pattern is regular, symmetrical. 15:30 Headache History: The patient has had previous headaches and this one is similar to bp previous episodes. Pain: Pain currently is 4 out of 10 on a pain scale. Pain began 1 day ago. Also complains of no other associated symptoms. Historical: - Allergies: 15:26 Aspirin; db - PMHx: 15:26 Arthritis; Atrial Fib; CARPAL STEVEN. TO LEFT HAND; GERD; Bladder cancer; Hypertension; db - PSHx: 15:26 bladder replaced d/t bladder cancer; Knee Replacement bilateral; shoulder replacement db right; Stented artery; - Immunization history:: Adult Immunizations unknown. - Infectious Disease History:: Denies. - Social history:: Smoking status: Patient/guardian denies using tobacco, but has a distant history of tobacco abuse. Screenin:25 [facility] ED Fall Risk Assessment (Adult) History of falling in the last 3 months, bp including since admission No falls in past 3 months (0 pts) Confusion or Disorientation No (0 pts) Intoxicated or Sedated No (0 pts) Impaired Gait No (0 pts) Mobility Assist Device Used No (0 pt) Altered Elimination No (0 pt) Score/Fall Risk Level 0 - 2 = Low Risk Oriented to surroundings. Abuse screen: Denies threats or abuse. Denies injuries from another. Nutritional screening: No deficits noted. Tuberculosis screening: No symptoms or risk factors identified. Assessment: 16:01 Reassessment: STROKE ALERT CALLED. PT TO CT. db 16:28 Reassessment: Pt ambulatory in hallway w/ steady gait. ph 18:40 Reassessment: REPORT TUBED TO 2ND. bp Vital Signs: 15:24 BP 111 / 57; Pulse 57; Resp 16; Temp 97.8; Pulse Ox 95% on R/A; Weight 104.33 kg; db Height 5 ft. 11 in. ; 18:26 BP 119 / 71; Pulse 61; Resp 16; Pulse Ox 95% ; bp 15:24 Body Mass Index 32.08 (104.33 kg, 180.34 cm) db ED Course: 15:06 Patient arrived in ED. mr 15:22 Gonzalo Rich DO is Attending Physician. ms3 15:26 Triage completed. db 15:27 Arm band placed on left wrist. db 15:35 EKG done. ss 16:10 Initial lab(s) drawn, by me, sent to lab. Inserted saline lock: 20 gauge in right db antecubital area, using aseptic technique. Blood collected. Flushed with 10 mL NS. 16:15 CT Stroke Brain w/o Contrast In Process Unspecified. EDMS 16:19 CT Head Angio In Process Unspecified. EDMS 16:19 CT Neck Angio In Process Unspecified. EDMS 16:28 Debra Hernandez, RN is Primary Nurse. ph 16:43 Stanislaw Stephens, JOE is Primary Nurse. bp 16:52 Verito Joaquin MD is Hospitalizing Provider. ms3 16:58 Stroke CXR 1 View In Process Unspecified. EDMS 18:25 Patient has correct armband on for positive identification. Provided Education on: NA. bp 18:25 No provider procedures requiring assistance completed. Patient admitted, IV remains in bp place. Administered Medications: No medications were administered Medication: 18:27 VIS not applicable for this client. bp Point of Care Testing: Blood Glucose: 16:05 Blood Glucose: 114 mg/dL; db Ranges: Outcome: 16:53 Decision to Hospitalize by Provider. ms3 18:27 Admitted to Med/surg accompanied by tech, bp 18:27 Condition: stable 18:27 Instructed on the need for admit, 19:29 Patient left the ED. kd3 Signatures: Dispatcher [employer] EDUT Kristen Butler, Reg Reg mr Leola Diaz, RN RN Debra Hernandez, RN RN Stanislaw Stephens, RN RN Gonzalo Rich, DO DO ms3 Diane Alonso, RN RN kd3 Brianne Hill, RN RN db
[2025-03-07] MEDS ORDERED: ONDANSETRON 4 MG/2 ML VIAL IV PRN (16:57)
--- NOTE | 2025-03-07 18:46 | RAD REPORT ---
EXAMINATION: ONE VIEW CHEST XR CLINICAL INDICATION: Male, 84 years old.,[place] TECHNIQUE: Frontal chest projection is submitted. Examination is limited by patient positioning and t echnique. COMPARISON: 03/03/2025 FINDINGS: The lungs are well inflated. Perihilar hazy opacities with interstitial prominence, partially improve d since prior exam.. No pneumothorax or sizable effusion. Stable cardiomegaly. Mediastinal contours are unremarkable. IMPRESSION: Partial improvement of perihilar hazy opacities, suggesting improving congestion or edema.
[2025-03-07 19:54] VITALS: O2SAT 95
[2025-03-07] MEDS: NA CHLORIDE 0.9% 1,000 ML IV SCH (20:10)
[2025-03-07 21:17] VITALS: BMI 32.1
[2025-03-07] MEDS: DIPHENHYDRAMINE 25 MG TAB/CAP PO ONE (22:17)
[2025-03-07] MEDS: ACETAMINOPHEN 500 MG TAB PO ONE (22:17)
[2025-03-08 01:44] LABS: Absolute Eosinophils 0.3 K/uL (0-0.5); Absolute Lymphocytes (CBC) 1.3 K/uL (0.7-4.9); Basophils % 0.6 % (0-1.3); Eosinophils % 4.6 % (0-4.4); Hematocrit 31.1 % (39.6-49.0); Hemoglobin 10.9 g/dL (13.6-17.9); Lymphocytes % 20.2 % (15.3-44.8); MCH 32.6 pg (27.0-35.0); MCV 93.2 fL (80-100); MPV 8.1 fL (7.6-11.3); Monocytes % 14.6 % (3.3-12.3); Platelets 204 thou/uL (152-406); RBC Red Blood Cell Count 3.34 M/uL (4.33-5.43); Red Cell Distribution Width 13.6 % (12.1-15.2)
[2025-03-08 01:54] LABS: Albumin 3.4 g/dL (3.4-5.0); Anion Gap 8.7 mEq/L (5.0-15.0); Bilirubin Total 0.4 mg/dL (0.2-1.0); Globulin 3.5 g/dL (2.3-3.5); Potassium 3.7 mEq/L (3.5-5.1); Protein, Total 6.9 g/dL (6.4-8.2)
[2025-03-08] MEDS: ACETAMINOPHEN 500 MG TAB PO PRN (06:20)
[2025-03-08] MEDS: NA CHLORIDE 0.9% 1,000 ML IV SCH (08:23)
[2025-03-08] MEDS: LOSARTAN POTASSIUM 50 MG TABLET PO SCH (08:24)
[2025-03-08] MEDS: FERROUS SULFATE 325 MG TAB PO SCH (08:25)
[2025-03-08] MEDS: METOPROLOL TAR 25 MG TAB PO SCH (08:25)
[2025-03-08] MEDS: RIVASTIGMINE 4.6 MG/24 HR PATCH TD SCH (08:25)
[2025-03-08] MEDS: MAGNESIUM OXIDE 400 MG TAB PO SCH (08:26)
[2025-03-08] MEDS: CLOPIDOGREL 75 MG TABLET PO SCH (08:26)
[2025-03-08] MEDS: VITAMIN D 1000 UNIT TAB PO SCH (08:26)
[2025-03-08] MEDS: AMLODIPINE 10 MG TAB PO SCH (08:26)
[2025-03-08] MEDS: ATORVASTATIN 40 MG TAB PO SCH (08:27)
[2025-03-08 09:01] LABS: Troponin High Sensitivity 104.5 pg/mL (<58.9)
[2025-03-08 16:49] LABS: Anion Gap 8.1 mEq/L (5.0-15.0); Potassium 4.1 mEq/L (3.5-5.1)
--- NOTE | 2025-03-08 20:47 | HP ---
Date of Admission: 03/08/2025 Chief Complaint: Dizziness. History Of Present Illness: An 84-year-old pleasant male patient, who was at [facility] yesterday and after he ate, as he was getting out of this restaurant, he reported that he just did not feel well and felt like he was dizzy. He decided to drive to emergency room. After he was evaluated, I was contacted requesting admission to the hospital. The patient denies any visual complaints. Denies any headache, nausea, vomiting. No chest pain, shortness of breath, or diarrhea. He did see mail distributor, Dr. Madison, on Thursday, which is day before yesterday, and Dr. Madison has initiated arrangements for the patient to have a pacemaker placement for sick sinus syndrome, which was noted during his last hospital admission last week. The patient denies any tingling or numbness of extremities. No weakness. No difficulty with speech or no trouble swallowing. Allergies: NO KNOWN ALLERGIES Medications: List reviewed. 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 All other systems reviewed and negative. Past Medical History: Significant for hypertension; hyperlipidemia; coronary artery disease; gastroesophageal reflux disease; gastric ulcer; upper GI bleeding in December of this year; chronic kidneydisease, stage 3B; vitamin B12 deficiency; anemia; vitamin D deficiency; hypomagnesemia, iron deficiency anemia; atrial fibrillation; hypothyroidism. Past Surgical History: Hernia repair, removal of bladder with neobladder in 2007, right shoulder surgery, bilateral knee replacement, coronary artery angioplasty with stent placement in November 2023. Family History: Father , had AL and hypertension. Mother , had AL. Brother has hypertension and hyperlipidemia. Social History: Negative for smoking and alcohol use Physical Examination: Vital Signs: Height 5 feet 11 inches, weight 230 pounds, temperature 97.3, pulse 62, respiratory rate 16, blood pressure 134/74, oxygen saturation 94% on room air. General: Awake, alert, oriented, not in distress. HEENT: Head atraumatic, normocephalic. Conjunctivae nonerythematous. Sclerae white. Mouth, no thrush or edema noted. Ears/Nose, no mass, lesion, discharge noted. Neck: Supple. No JVD, lymph nodes, bruit, thyromegaly noted. Lungs: Bilateral good equal air entry. Clear to auscultation. No rhonchi. No rales. Heart: Normal heart sounds, no murmur or gallop. Abdomen: Soft, bowel sounds normal. No guarding, rigidity, tenderness, mass, hepatosplenomegaly, distention, or bruit noted. Extremities: No leg edema. No calf tenderness. Skin: No rash, ulcer, cellulitis. Lymphatics: No lymph node enlargement in neck, supraclavicular, infraclavicular region. Neuro: No focal neurological deficit. Chest: Unremarkable. External Genitalia: Deferred. Rectal: Deferred. Laboratory Data: Yesterday, WBC 7.9, hemoglobin 11.6, platelets 224. Today, WBC 6.6, hemoglobin 10.9, platelets 204. For chemistry yesterday, sodium 131, potassium 4, chloride 95, bicarb 29, BUN 60, creatinine 2.37, glucose 123. Initial troponin 97.6, second troponin 113.7. This morning, sodium 133, potassium 3.7, chloride 98, bicarb 30, BUN 58, creatinine 2.22, glucose 141. Liver function tests unremarkable. CAT scan of the head without contrast done in emergency room was negative for any acute intracranial changes. Lung x-ray shows improvement in perihilar haziness which was noted during last hospital admission. CT angio of head and neck shows no evidence of large vessel occlusion or stenosis. Impression: 1. Acute kidney injury. 2. Volume depletion. 3. Congestive heart failure, chronic, diastolic. 4. Hypertension. 5. Hyperlipidemia. 6. Coronary artery disease. 7. Gastroesophageal reflux disease. 8. Chronic kidney disease, stage IIIB. 9. Hypothyroidism. 10. Atrial fibrillation. Plan: We will go ahead and admit the patient to hospital for further evaluation and management of this problem. Last week, the patient was admitted to hospital with pulmonary edema and acute exacerbation of his chronic diastolic heart failure. Prior to that admission, he was taking furosemide 40 mg daily and potassium chloride 10 mEq daily and upon discharge, we released him with instruction to take furosemide 40 mg 2 times a day and potassium chloride 10 mEq 2 times a day. Unfortunately, it appears that this dose of medication is too much for him, so we have no choice, but to cut back on it and get back on furosemide and potassium chloride once a day and these details were discussed with him today. When ER physician contacted me, 1 L of IV fluid bag was ordered which he has received. Renal function has marginally improved, not back to his baseline, so we will go ahead and continue IV fluid as per order with normal saline at 100 cc/hour. Repeat blood work was done later today afternoon and results reviewed and once again, renal function has slightly improved from this morning, but not back to baseline yet, so plan is to continue IV fluid at current rate. The patient has not shown any signs or symptoms of congestive heart failure. We will repeat blood work tomorrow morning and hopefully discharge him to go home tomorrow. His congestive heart failure problem has remained stable. Sick sinus syndrome and atrial fibrillation problem is stable. No need for further intervention. Continue his amiodarone and metoprolol per order. The patient's other medical problems are stable at this time. We will continue home medications per order. No need for any further intervention. I will see him tomorrow morning for followup and possible discharge to go home tomorrow. Cardiac enzymes are abnormal, but not indicating any myocardial infarction and no need for further intervention. Total time spent 65 minutes including review of last hospital admission record from 02/01/2025, communication with emergency room physician, review of emergency room visit record and performing today's evaluation and management. MANSOOR/MODRiley Voice ID: [id number] GEORGE
[2025-03-09] MEDS: PANTOPRAZOLE 40MG TABLET PO SCH (05:29)
[2025-03-09] MEDS: LEVOTHYROXINE SOD 0.05 MG TABLET PO SCH (05:29)
[2025-03-09 05:47] VITALS: BP 153/77; TEMP 98.5
--- NOTE | 2025-03-10 13:48 | DS ---
Date of Discharge: 03/09/2025 Disposition: Discharged to go home. Physical Examination: HEENT: Unremarkable. Lungs: Clear to auscultation. Heart: Sounds normal. Abdomen: Soft. Bowel sounds normal. No guarding, rigidity, tenderness, or distention. Extremities: No leg edema. Discharge Medications And Instructions: Continue all prior home medications except following changes : 1. Furosemide 40 mg take 1 tablet by mouth once a day. 2. Potassium chloride 10 mEq take 1 tablet by mouth once a day. 3. Follow up at my office next week on . Come to office for nonfasting blood work which will be basic metabolic panel to be done on Thursday, which is a day before appointment to see me. 4. Drink 3 bottles of water daily (16 ounce bottle) and I have gone over these instructions with the patient personally this morning when I saw him. Labs: Upon admission, sodium 131, potassium 4, chloride 95, bicarb 29, BUN 60, creatinine 2.37, gluc ose 123. Initial troponin 97.6, second troponin 113.7. Yesterday chemistry showed sodium 133, potas sium 3.7, chloride 98, bicarb 30, BUN 58, creatinine 2.22, glucose 141. Liver function tests unremar kable. Today, on the day of discharge, last creatinine was 1.7 this evening. CBC upon admission, WB C 7.9, hemoglobin 11.6, platelets 224 and yesterday WBC 6.6, hemoglobin 10.9, and platelets 204. Las t chemistry today, sodium 134, potassium 4, chloride 102, bicarb 27, BUN 44, creatinine 1.74, glucose 102. Hospital Course: This is an 84-year-old male patient who was admitted to the hospital with complaint s of dizziness. Please see dictated H and P for more information. The patient was evaluated, admitt ed to the hospital. He had workup done in the emergency room, which was negative for stroke. Clinic ally, he did not have any evidence of stroke and CAT scan of the head was negative. CT angio of the head and neck was also negative for any acute findings. After he was admitted to the hospital, IV fl uid was started for acute kidney injury and his renal function has improved back to his baseline whic h is creatinine of 1.7 that we saw during last hospital stay, as his baseline kidney function which w e were able to achieve it and after that decision was made to discharge him to go home. The patient is ambulating well and not showing any signs and symptoms of congestive heart failure. The patient w as discharged to go home in stable and improved condition with above-mentioned medications and instru ctions. Final Diagnoses: 1. Acute kidney injury. 2. Volume depletion. 3. Congestive heart failure, chronic, diastolic. 4. Hypertension. 5. Hyperlipidemia. 6. Coronary artery disease. 7. Gastroesophageal reflux disease. 8. Chronic kidney disease, stage IIIB. 9. Hypothyroidism. 10. Atrial fibrillation. MANSOOR/MODL Voice ID: [id number] Report ID: [id number]
--- NOTE | 2025-03-14 12:47 | EKG ---
Test Date: 2025-03-07 Test Time: 15:32:35 Chief Accounting Officer: MARY MEASUREMENT RESULTS: Intervals: Rate: 54 NM: QRSD: 100 QT: 460 QTc: 436 [place]: P: NM: QRS: 45 T: -75 INTERPRETIVE STATEMENTS: Junctional rhythm with premature ventricular complexes or fusion complexes Incomplete right bundle branch block T wave abnormality, consider inferior ischemia Abnormal ECG Compared to ECG 03/04/2025 18:53:09 Junctional rhythm now present Fusion complex(es) now present Ventricular premature complex(es) now present Incomplete right bundle-branch block now present T-wave abnormality now present Possible ischemia now present Accelerated junctional rhythm no longer present Left-axis deviation no longer present Myocardial infarct finding no longer present Electronically Signed On 03-14-25 12:32:23 CDT by Dhruv Harper
== END 2025-03-09 08:33 | disposition home or self-care (01) ==
LOC: ER 15:02 → 2ND 19:17
PROVIDERS: ADMIT Internal Medicine; ATTEND Internal Medicine
DX: N17.9 Acute kidney failure, unspecified (principal); E86.9 Volume depletion, unspecified; I50.32 Chronic diastolic (congestive) heart failure; R42 Dizziness and giddiness; E78.5 Hyperlipidemia, unspecified; I25.10 Atherosclerotic heart disease of native coronary artery without angina pectoris; K21.9 Gastro-esophageal reflux disease without esophagitis; I12.9 Hypertensive chronic kidney disease with stage 1 through stage 4 chronic kidney disease, or unspecified chronic kidney disease; N18.32 Chronic kidney disease, stage 3b; E03.9 Hypothyroidism, unspecified; I48.11 Longstanding persistent atrial fibrillation; R79.89 Other specified abnormal findings of blood chemistry; D64.9 Anemia, unspecified; E53.8 Deficiency of other specified B group vitamins; E55.9 Vitamin D deficiency, unspecified
CPT/HCPCS: 93005; 85025 ×2; 80048 ×3; 36415 ×3; 83721; 85610; 82947; 85730; 84484 ×3; 80053; 70496; 70498; 70450; 71045; 99285; Q9967; J7030 ×4; G0378